=== PATIENT | female | born 1995 | race Caucasian/White ===

== ENCOUNTER 2024-01-30 10:40 | Outpatient (OUT) | payer OTHER, SELFPAY | END 2024-01-30 10:41 | disposition home or self-care (01) | LOC: PST 10:47 | PROVIDERS: PCP Family Medicine; Visit Provider Obstetrics & Gynecology | DX: Z01.818 Encounter for other preprocedural examination (principal); Z30.2 Encounter for sterilization ==

== ENCOUNTER 2024-06-19 11:10 | Outpatient (OUT) | payer BC, OTHER, SELFPAY | END 2024-06-19 11:11 | disposition home or self-care (01) | PROVIDERS: Visit Provider Obstetrics & Gynecology | DX: Z01.818 Encounter for other preprocedural examination (principal); Z30.2 Encounter for sterilization ==

== ENCOUNTER 2024-06-23 20:20 | Emergency (ER) | payer BC, OTHER, SELFPAY ==
[2024-06-23 20:26] VITALS: BP 125/79; PULSE 85; TEMP 36.8; O2SAT 99; BMI 32.3
--- OUTSIDE RECORDS SUMMARY | 2024-06-23 20:32 | XMS_ITS | CCD ---
Author Organization [facility]ini[facility] Care Team Providers Care Operations Team Leader Name Role Phone DANIELA MARIE Primary Care Physician Yahir Yu Primary Care Physician [phone] BRANDEN ORTIZ Primary Care Physician KIMO ., DR HOWE Attending Unavailabl e KARASIJodi ., DR HOWE Consulting Unavailabl e KARCARLA ., DR HOWE Admitting Unavailabl parminder MARIE, DR DAVIDSON Primary Care Unavailable Jhonatan Lockhart Attending Unavailable Jhonatan Lockhart Attending Unavailable Jhonatan Lockhart Attending Unavailable Kian Rodriguez Attending Unavailable Kian Rodriguez Attending Unavailable YARELI, BRANDEN HERBERT Admitting Unavailable SOALLYSON, BRANDEN HERBERT Referring Unavailable SOALLYSON, BRANDEN HERBERT Attending Unavailable SOALLYSON, BRANDEN HERBERT Admitting Unavailable SOVIAK, BRANDEN HERBERT Attending Unavailable SOALLYSON, BRANDEN HERBERT Attending Unavailable SOALLYSON, BRANDEN HERBERT Admitting Unavailable Jhonatan Lockhart Attending Unavailable Daniela Marie MD Primary Care Provider Keerthi Blanco MD Unavailable [phone] CARLOS BURNHAM Attending Unavailable CARLOS BURNHAM Referring Unavailable CARLOS BURNHAM Attending Unavailable BERNICE NORWOOD Attending Unavailable BERNICE NORWOOD Attending Unavailable CARLOS BURNHAM Attending Unavailable BERNICE NORWOOD Attending Unavailable CARLOS BURNHAM Attending Unavailable LAURI WARE Attending Unavailable BERNICE NORWOOD Attending Unavailable Allergies Allergy Classification Reported Allergen(s) Allergy Type Date of Onset Reaction(s) Facility (2 sources) Unable to obtain; Translations: [Unable to obtain] Drug allergy [facility] Medications Current Medications Medication Drug Class(es) Dates Sig (Normalized) Sig (Original) ciclopirox 80 mg/ml topical solution (1 source) Start: 11-12-2023 End: 12-12-2023 ciclopirox (Penlac) 8 % solution Indications: Onychomycosis of Toenails Apply topically at bedtime Applied daily to affected nails. Remove once a week with alcohol swab 10 mL 1 11/12/2023 12/12/2023 Active ammonium lactate 120 mg/ml topical lotion (1 source) Start: 11-12-2023 End: 12-12-2023 ammonium lactate (Lac-Hydrin) 12 % lotion Indications: Xerosis Cutis Apply 1 application topically if needed for dry skin Apply to feet twice daily 60 g 1 11/12/2023 12/12/2023 Active methylPREDNISolone 4 mg oral tablet (1 source) Corticosteroid Start: 10-17-2022 End: 10-23-2022 Medrol 4 mg Tab = 1 packet(s), Oral, As Directed, as directed on package labeling, X 6 day(s), # 21 tab(s), Refills(s) 0, Pharmacy: [facility]/pharmacy #[id number], 167, cm, 10/17/22 21:44:00 EST, Height/Length Dosing, 95.4, kg, 10/17/22 21:44:00 EST, Weight Dosing Start Date: 10/17/22 Stop Date: 10/23/22 Status: Ordered triamcinolone acetonide 1 mg/ml topical cream (8 sources) Corticosteroid Start: 08-19-2022 triamcinolone Top 0.1% Crm 15 gram 1 tyler, Topical, TID, 15 gram, Refill(s) 0, [facility]/pharmacy #[id number], 165, cm, 08/19/22 0:59:00 EDT, Height/Length Dosing, 98, kg, 08/19/22 0:59:00 EDT, Weight Dosing Start Date: 08/19/22 Status: Ordered Zofran ODT 4 mg Tab-Dis (9 sources) Start: 04-05-2022 take 1 tablet by mouth every eight hours as needed for nausea Zofran ODT 4 mg Tab-Dis 4 mg = 1 tab(s), Oral, q8hr, PRN Nausea/Vomiting, # 20 tab(s), Refills(s) 0, Pharmacy: [facility]/pharmacy #[id number], 170.2, cm, 04/04/22 22:40:00 EDT, Height/Length Dosing, 96, kg, 04/04/22 22:40:00 EDT, Weight Dosing Start Date: 04/05/22 Status: Ordered Problems Problem Classification Problem Date Documented Date Episodic/Chronic Allergic reactions (1 source) Urticaria; Translations: [Urticaria, unspecified] Onset: 10-17-2022 Episodic Immunizations and screening for infectious disease (1 source) Encounter for screening for human papillomavirus (HPV); Translations: [ENC SCREENING HUMAN PAPILLOMAVIRUS] Onset: 01-31-2023 Episodic Mood disorders (11 sources) Mixed bipolar affective disorder 08-03-2021 Chronic Nausea and vomiting (1 source) Nausea and vomiting; Translations: [Nausea with vomiting, unspecified] Onset: 04-05-2022 Episodic Other screening for suspected conditions (not mental disorders or infectious disease) (4 sources) Encounter for screening for malignant neoplasm of cervix; Translations: [ENC SCREENING MALIG NEOPLASM CERV] Onset: 01-26-2023 Episodic Other skin disorders (2 sources) Eruption; Translations: [Rash and other nonspecific skin eruption] Onset: 08-19-2022 Episodic Other upper respiratory infections (1 source) Acute upper respiratory infection; Translations: [Acute upper respiratory infection, unspecified] Onset: 10-06-2022 Episodic Otitis media and related conditions (1 source) Acute non-suppurative otitis media - serous; Translations: [Acute serous otitis media, left ear] Onset: 02-05-2022 Episodic Sprains and strains (1 source) Injury of muscle and tendon at ankle and foot level; Translations: [Strain of unspecified muscle and tendon at ankle and foot level, unspecified foot, initial encounter] Onset: 03-08-2022 Episodic Results Test Name Value Interpretation Reference Range Facility Coding Summary.on 02-09-2023 Coding Summary. CD:[id number] Ww+PGhlYWQ+XJ2IONTuC 65upVPotO4mP0JWYYfFT ywgQVBQTElOSyIgbmFtZ I1lgLHkRJPf IC8+UO5rENOuRccdfSCn a9I2xDC9S48ott4iRQrd yYW2XAOgYrTspbonx8xa fXo1NHelOwiwWcPw SFJblX18ZRX7yC54Mh71 mIXhrZGjr2defLz1TcHm FZXhBBG6kDlxBHsde5Ei UVTnJ34dxLCfy5Z4 IGNvbGxhcHNlOyBlbXB0 bH4rIPjwiknvo5lgnduy Fyt2dg42jPKdk7H3nIR5 B9MecaV9TRBxrCEd HxoizRORbF3wmubmq0hw vfpvDpHeIHGhGSp6GKe5 LVNzpNmiAvIhSN72MUS5 IMWesyKvL9YuFEWq hOqjTcE6k3R8Ts9MK3WW FbzaW6OBHBNNWOmzhPW+ RM12yo18T6MlTwgdVlf7 VCXpYPW9kQZ5zT0n DNTzBJamp1N6yLF3H2Kh ktSqdt0xd8ouMVCgJUya B18neVAvx1W6SOFzmKI8 UNBvaTvlNySkfW91 Oyc+KHXhzSatv8BvSzrt k4yoi6bidIv6QkkhKVGk fqEzhHoxEGN4y8PnEg9m JGPknCL1rDO8nE7r TrIbKmH0CLuqM312VgYi mJQtHkvwM98oU5GceHS+ JXZtOqn8ZLXaqIhhCX0g R5PxLPHtkcmojNTt cSagQJ5qGFWuwisoYMCa uG2wYBVnG6v7DfDdAqG1 ZKbgG0AsUBWnpwdmOo13 dQ0tUuKyOcO9WHnn P1BznvP9MQBmxTHmVUtl QMK0K68ja8M9AOTlYKIp MNP5oEM4rN7mxInhvgpo bGVmdDsgdmVydGlj HBfkKVbkZ600ALAxhGqe PkNvZGluZyBEYXRlOiAg MDQvMjYvMjAyMzwvdGQ+ QIKlRVS8uXqpLBBt aRWgPNkjOi4zkSyzhPli HA8wCWGfsybgHPEjtX7y WNYlgEOrdZbzHC6mVLWz eibgs642ClIiZSZ7 AWTtiDIsH3UsfT4pObAu GYQuUYRpJ5BmrSIuYIir D190XYsyOaY2RCJogpMr X9SaOANmdBziTrR6 u5Z4Hz2Mj3QfvavlT2Mz wIThOfPrJdzjUGg6E6Xh PjwvdHI+WQ71CCWqCS09 JDv1IXP4dTnrTLrw PTZqC3LqbE9rWyVrABQc ZGRkOyc+PHRhYmxlIHdp ZHRoPScxMDAlJyBzdHls LH5kSl9oFGHoVHOd zGujeHYsMaHos8mgWAYz VGenGV6sqLsnH5BqlZE6 PJEow8m6Un43G20zY4Rv dXA+CKJofXF2yQT0 xK3tLdQhDsU0HEexZ380 GoFlfUNeMvuuv8unk0xv gXn6DbB7BPIuohCvvTis KDN6m9GuWu21R76o IHdpZHRoPSIxNSUiIHZh zBvzgf0lmV7yDg8+PGNv oBD8dJF6xQ8aXfXcAfP3 DMtbU287ApIrbBKz Enche2cyq7kmeAi3OyId VBLhyfGywIlsQXR2o4Nz Ij48Y5FsuAvwq5AlXke3 oz11uVVwr3L6iVA1 B8StCPSurhpqwYSzyOlc CX8uHBWwcqxxBELrxD1i FMFfB9e1AvTvAfQ4OIty U6UnusA1VPGdsUBp YYTqnKZMbL7ldzxgb8sp emznZwBvXCIePPu6TNu9 JMFgqDikMtRgXSY7YuC3 FRA7nYRmfU5ixKup phhsnJ2xYdh+GSZ7uNJu wPZHVV2zDhhkjVJ+PHRk QWM4hZrpATglYLGheL5b WNPvJ4v3HgGhYoM1 ZAbzF8RzluA8JWWtfXBh TEChbLKTdL9zsabao1nr bqkhJxLgJGWzDRq3GDk7 LWFsaWduOiBsZWZ0 YpF2ONE2rSMkwH8rtUwg ipnsyA5rEds+QmlydGgg EEH9WGc9O4KmCqo8UEBx tQocCF0zmIGeLGaw Vb0umLoedMruQT2uDKZp wcmaq230YiVyq4tvFIDt jBCyQXtnTYI2M68zi2X2 ZHJaEWQdKZJ4jVQ7 dT9skGrecvnvkQLmiJyl grGvnXubCKwaDWvoZ993 DMBevEorRrWaYUq5Q1Ko Elz5ECBdiJnbBC3c jCUnJXzfLc6trTmobFeu RO6aLYVviqfct997HnEh d3zzNSWioLYcEDqiZFV2 U98nn8Z0AIXkCSTh QUN3gKF9sM3swJisphoo bGVmdDsgdmVydGljYWwt NCwcY692FXFjiDlaRiAx jMe4S2IhOft4ASJl oIqwEX4riXAyLIhlRc5w vHtlxPkzDA1vQSBiixos q715DyIwl3jyUGXkiTYh OXeoGXJ3P36kb2C4 ZYGlMYPsMPW0dZW3jR7n bGlnbjogbGVmdDsgdmVy qIvjAXbdTBcoF050DGSs cDsnPlBhdGllbnQg GRtjNCb4H6TvWldpcOF+ NL65ENDeNQ11dYTkmPIr b4kdiIu0ZoRqEOFgAMI8 lVgpDXqcr1AnBLZm P36qaRNkw9D4OKFvaEit aZKmNuVliOA4kY3oANtn yfkrh0edcgoxRxlcm4rr lp08fV48R69kCLhh ZHRoPSIzMCUiIHZhbGln on5apN0bYn3+PGNvbCB3 pYK5uD6sEYXkGbP2XAej Z425JjNymUMzMhdv x4cns9kplXj6HcG1WJXv quSkmPegDOQ8p6JiYz44 F34hTKheFXTlVEWpYQYu GTMqeWejzu7auE8e Ii8+CIAdiWR3qUO3vY3r RxHaGfR7JBfeU011EqSd gKBcEbjaX22wH7ByaPA+ EKHfBlr1NFKyfPdp WZ1qyNVmDHqpEx3sAJM3 GhMyHyCiVJnsS5JzLBAz hxytypxyqTU5GULqSDAq hX86En8kzNrtKIYa qSEIuJ6jxntwg4mbbsup HeRyUJFnDMp4RIc0POUb hRzvVvWyEYK0IfE1RRD8 mOPneE8pyCjavkon yO1iG1ZeQABfpajzKy76 xY4iLtSiLtI7IAhlGmx+ K0WFVjYOZARCFDDTJ9TN LKk1Z7HpIgg9IAOr uOliWC9fcDBoKIrxOk1y xTrunDtuBA0uFANwzuwo ONFhnY3gLAGqlVWvqQzp GW6fHSXpvmvow747 HuGmMFY7ATNtvWNgQ5Fy uI8oUnCmBZJoCTAfM6Zi iFBrXSmoY997CPtaNtI5 WREedbOxP0BfPKOh fVnfHjP3z4Q6He3gQH2s GG4yJYv6NL19TS21yUKk v4T3uMM1W8PmLAHhuojv drvjyBB0JLHoPFFs qW70oIVdCSatCs1io8D0 z937SPLtTOMpwT10Cv5g bFwkITHwzILJtI8wvxim p6hqjrsaFvXpAVAh ISl0OVf2MGDaqDumCwNl XIK6CaD2RBD8vFStmR2e gMxsqytsgW1bNad+Mjcg EBDcfqF3Q3OdRnk6 QZGjuRmgCZ7uxZWfRQru Ik0cqAuuqNbrOU9lAHRu qowsTLWbeF1nDXApfFLk lGopSK4jNSFeukev c935OjJwTCK5RRXcoBFs Y9MvoJ9qSuCrJCNnXCOu M1ClxRToYOinW543KXto YvP1EEUpmiGjY5Ef RTOknFeeQaN5c0I7Dc2Q UH0fbKT3D1TsDxx2IOGi nFoxEA7jrQIkDYolGr9c eFekqBrtOF2sJIHh jjsgNLKiwG6pSJPlrKCh gBdgBD8yAGJioqrwo475 WcXaKAC3JKOvzJXiH8Dx aZ8gWoGkRRCkGRUo Q3OayTDvOAbsG496WZhr HoF3IVGvuaVjT5KkOTRk gZtcWuD9p6Z3Yc7QKVRt OAXndRReJrZ1D5Ij PjwvdHI+LM70EYCsOU91 pUDplNUdy4bwqKy6VfYm AHNqIRM5lNwvKSwch4Pc TAUwZ97xpQDqo9V1 IGNvbGxhcHNlOyBlbXB0 kX3aBHkyjikfo6ovewbs Jtojc5nepl32vN39R13w IHdpZHRoPSIzMCUi JJZfzDdxxm2lcQ2hFs0+ GTMrbOU4dMI4uJ0pTfXi AxI9QErbQ568WlTatBUe Fljnl4tse9xkeIg4 IjIwJSIgdmFsaWduPSJ0 d9HkJs40J26xFJanPLKt AAYiVJQeCVBbeLxqzv0n pF6bTy6+QX5wc1xm yf29sZ07zJK+PHRkIHN0 eOceAIvcQOQejH6aQGql GmX4MAAvKhFcxK15eVYd OKxfKz5jkGrprUiw LL5aAFBevgkdl157LcGf e0wvTUZkcLFdXRboIJW7 N25fy1O7ZCPfOSSzVWN6 oUV7eN6nxRnxwaor bGVmdDsgdmVydGljYWwt NEytP899HHOmrEuhOfCn bUZqS6rcntGWUR8jFhsd dGQ+TEMmEDD5pGcf BLljSDXzyR3uJEZkL7m1 OtMcZdX3WLriN2CsenT2 CTLooTFoHMAciDGIxV4s dgmoa7anibyiFfVe WLKvTQj4GYw7EMIgfFft PoHxYWI7VkW0IRK5dPWf tX3ayFgcsuzbuM3uMnv+ RklOOjwvdGQ+PHRk NAR8tPxkUSsaZGCmuG5x QDBeA8q1UbMhLwH8DCqn T5CpasP7HFTczQCaXKTf oCSGeH6pphqdr6wc fzbtZlFiCDEgBJf3IIb3 KNUelVoeHuBxIUJ6NdJ1 TNP9pYSksC3drAkjgmda uR1nUff+TVJOOjwv dGQ+CQPqVAP1bPvjLNty DXAdaT6mWBCzM3k2HmQi GaI2JKlyQ7YepkR5YTEc dCCwLGTazJMLcT7o sbkup4mpuxiuToDdMLWx UAu7DIp5ECPymDnfEtIz LPG8XiL5EJG1oLYgrT0y mYkigiwvhO6nWwe+ GGT6CRO7YV59NL75E5Yn PjwvdGFibGU+PHRhYmxl IHdpZHRoPScxMDAlJyBz dJndST2lId5kCDXp LWNvbGxh (more content not included)... [facility] Auto Diffon 02-04-2023 Basophils/100 WBC (Bld) 0.3 % Normal 0.0-2.0 [facility] Comment on above: Order Comment: Order Added by Discern Expert. Performed By: #### 2 [id number], 5170210, 4187011, 3002358, [id number] #### [facility] [address] [place] [address] Basophils/Leukocytes Auto (Bld) [Pure # fraction] 0.0 E9/L Normal 0.0-0.2 [facility] Comment on above: Order Comment: Order Added by Discern Expert. Performed By: #### 2 951527, 2823616, 6474474, 5937075, [id number] #### [facility] [address] [place] [address] 25215 Eosinophils/100 WBC (Bld) 1.9 % Normal 0.0-8.0 [facility] Comment on above: Order Comment: Order Added by Discern Expert. Performed By: #### 2 921813, 3467267, 9936334, 0287613, [id number] #### [facility] [address] [place] [address] 97533 Eosinophils/Leukocyte s Auto (Bld) [Pure # fraction] 0.1 E9/L Normal 0.0-0.5 [facility] Comment on above: Order Comment: Order Added by Discern Expert. Performed By: #### 2 961421, 8820730, 4888987, 7656978, [id number] #### [facility] [address] [place] [address] 88468 Lymphocytes/100 WBC (Bld) 41.1 % Normal 14.0-50.0 [facility] Comment on above: Order Comment: Order Added by Discern Expert. Performed By: #### 2 917058, 2808661, 5404192, 8134223, [id number] #### [facility] [address] [place] [address] 73761 Lymphocytes/Leukocyte s Auto (Bld) [Pure # fraction] 2.7 E9/L Normal 1.0-4.0 [facility] Comment on above: Order Comment: Order Added by Discern Expert. Performed By: #### 2 199769, 7626097, 1549724, 6274207, [id number] #### [facility] [address] [place] [address] Monocytes/100 WBC (Bld) 5.9 % Normal 4.0-14.0 [facility] Comment on above: Order Comment: Order Added by Discern Expert. Performed By: #### 2 679666, 4355742, 3134790, 9466140, 96258585 #### [facility] [address] [place] [address] Monocytes/Leukocytes Auto (Bld) [Pure # fraction] 0.4 E9/L Normal 0.2-1.0 [facility] Comment on above: Order Comment: Order Added by Eleazar Expert. Performed By: #### 2 194408, 6172313, 3525441, 5622409, [id number] #### [facility] [address] [place] [address]1409 Neutrophils/100 WBC (Bld) 50.8 % Normal 36.0-75.0 [facility] Comment on above: Order Comment: Order Added by Eleazar Expert. Performed By: #### 2 497604, 4439410, 6470406, 8772585, [id number] #### [facility] [address] [place] [address] 72864 Neutrophils/Leukocyte s Auto (Bld) [Pure # fraction] 3.4 E9/L Normal 2.0-7.5 [facility] Comment on above: Order Comment: Order Added by Discern Expert. Performed By: #### 2 644649, 8968052, 6449335, 6112417, [id number] #### [facility] [address] [place] [address] 40152 CBC w/ Auto Diffon 3 Erythrocyte distribution width (RBC) [Ratio] 12.8 % Normal 10.9-14.2 [facility] Comment on above: Performed By: #### 2 092594, 2740454, 0846423, 8951176, [id number] #### [facility] [address] [place] [address] Hematocrit (Bld) [Volume fraction] 42.4 % Normal 34.0-46.0 [facility] Comment on above: Performed By: #### 2 912402, 6967137, 2900921, 9676271, 65144050 #### [facility] [address] [place] [address] Hemoglobin (Bld) [Mass/Vol] 14.1 g/dL Normal 12.0-16.0 [facility] Comment on above: Performed By: #### 2 893332, 6117652, 2926077, 6837523, 81276450 #### [facility] [address] [place] [address]24 MCH (RBC) [Entitic mass] 29.2 pg Normal 27.0-34.0 [facility] Comment on above: Performed By: #### 2 522087, 4712845, 7218582, 1249343, 58250112 #### [facility] [address] [place] [address] 25949 MCHC (RBC) [Mass/Vol] 33.2 g/dL Normal 31.4-36.0 [facility] Comment on above: Performed By: #### 2 833228, 0902761, 5559756, 9483163, [id number] #### [facility] [address] [place] [address] MCV (RBC) [Entitic vol] 87.9 fL Normal 80.0-100.0 [facility] Comment on above: Performed By: #### 2 746457, 7214270, 9782475, 5968919, 71595175 #### [facility] [address] [place] [address] Platelet mean volume (Bld) [Entitic vol] 8.6 fL Normal 6.4-10.8 [facility] Comment on above: Performed By: #### 2 525037, 5297373, 0562693, 9466067, 55259741 #### [facility] [address] [place] [address] Platelets (Bld) [#/Vol] 217.0 E9/L Normal 150.0-500.0 [facility] Comment on above: Performed By: #### 2 048777, 2108834, 4389098, 3997302, 67044419 #### [facility] [address] [place] [address] RBC (Bld) [#/Vol] 4.8 E12/L Normal 4.3-5.9 [facility] Comment on above: Performed By: #### 2 038552, 2519107, 6624391, 2326004, 69672744 #### [facility] [address] [place] [address] WBC corrected for nucl RBC Auto (Bld) [#/Vol] 6.6 E9/L Normal 4.0-11.0 [facility] Comment on above: Performed By: #### 2 651081, 7619835, 8223220, 6379822, 46330520 #### [facility] [address] [place] [address] CHEMISTRYOrdered By: SYSTEM SYSTEM on 02-04-2023 Albumin [Mass/Vol] 4.1 g/dL Normal 3.3 - 5.0 gm/dL [facility] Albumin/Globulin [Mass ratio] 1.7 {ratio} Normal 1.1 - 2.2 [facility] ALP [Catalytic activity/Vol] 52 [iU]/d Normal 21 - 98 Int._Unit/L [facility] ALT No additional P-5'-P [Catalytic activity/Vol] 26 [iU]/d Normal 6 - 46 Int._Unit/L [facility] Anion gap [Moles/Vol] 12 mmol/L Normal 6 - 16 mEq/L [facility] AST [Catalytic activity/Vol] 22 [iU]/d Normal 5 - 43 Int._Unit/L [facility] Bilirubin [Mass/Vol] 0.8 mg/dL Normal 0.0 - 1 .1 mg/dL [facility] Calcium [Mass/Vol] 8.5 mg/dL Low 8.9 - 11. 1 mg/dL [facility] Chloride [Moles/Vol] 106 mmol/L Normal 101 - 1 11 mmol/L [facility] Cholesterol [Mass/Vol] 180 mg/dL Normal 120 - 200 mg/dL [facility] Cholesterol in HDL [Mass/Vol] 40 mg/dL Invalid Interpretation Code [facility] Cholesterol in LDL [Mass/Vol] 121 mg/dL Normal <=129mg/dL [facility] Cholesterol in VLDL [Mass/Vol] 19 mg/dL Normal 7 - 40 mg/dL [facility] CO2 [Moles/Vol] 24 mmol/L Normal 21 - 31 mmol/L [facility] Creatinine [Mass/Vol] 0.5 mg/dL Normal 0.5 - 1.3 mg/dL [facility] GFR/1.73 sq M.predicted among blacks MDRD (S/P/Bld) [Vol rate/Area] mL/min/1.73 m2 Normal >=59mL/min/1. 73 m2 [facility] S GFR/1.73 sq M.predicted among non-blacks MDRD (S/P/Bld) [Vol rate/Area] mL/min/1.73 m2 Normal >=59mL/min/1. 73 m2 [facility] Globulin (S) [Mass/Vol] 2.4 g/dL Normal 1.4 - 4.0 gm/dL [facility] Glucose [Mass/Vol] 90 mg/dL Normal 55 - 199 mg/dL [facility] Potassium [Moles/Vol] 3.9 mmol/L Normal 3.5 - 5.3 mmol/L [facility] Protein [Mass/Vol] 6.5 g/dL Normal 6.0 - 7.8 gm/dL [facility] Sodium [Moles/Vol] 138 mmol/L Normal 135 - 145 mmol/L [facility] Triglyceride [Mass/Vol] 95 mg/dL Normal <=149mg/dL [facility] Urea nitrogen [Mass/Vol] 15 mg/dL Normal 5 - 21 mg/dL [facility] Urea nitrogen/Creatinine [Mass ratio] 30 mg/mg High [facility] CMPon 02-04-2023 Albumin [Mass/Vol] 4.1 g/dL Normal 3.3-5.0 [facility] Comment on above: Performed By: #### 2 263449, 8510775, 1250820, 7927244, 06796623 ####[facility] [address] [place] [address] Albumin/Globulin (S) [Mass conc ratio] 1.7 Normal 1.1-2.2 [facility] Comment on above: Performed By: #### 2 312890, 2975785, 5089106, 5177357, 43197792 ####[facility] [address] [place] [address] ALP [Catalytic activity/Vol] 52 Int._Unit/L Normal 21-98 [facility] Comment on above: Performed By: #### 2 093052, 2803355, 4480862, 3310131, 15113617 ####[facility] [address] [place] [address] ALT No additional P-5'-P [Catalytic activity/Vol] 26 Int._Unit/L Normal 6-46 [facility] Comment on above: Performed By: #### 2 861699, 1262579, 3771024, 3653199, 17831363 ####[facility] [address] [place] [address] Anion gap [Moles/Vol] 12 mmol/L Normal 6-16 [facility] Comment on above: Performed By: #### 2 827266, 6398255, 3742109, 4576301, 34121075 ####[facility] [address] [place] [address] AST [Catalytic activity/Vol] 22 Int._Unit/L Normal 5-43 [facility] Comment on above: Performed By: #### 2 678739, 0304641, 1087675, 9749869, 73345860 ####[facility] [address] [place] [address] Bilirubin [Mass/Vol] 0.8 mg/dL Normal 0.0-1.1 [facility] Comment on above: Performed By: #### 2 370209, 4103223, 5614969, 0993802, 48241471 ####[facility] [address] [place] [address] Calcium [Mass/Vol] 8.5 mg/dL Low 8.9-11.1 [facility] Comment on above: Performed By: #### 2 832242, 7623223, 0122705, 1384741, [id number] ####[facility] [address] [place] [address] Chloride [Moles/Vol] 106 mmol/L Normal 101-111 [facility] Comment on above: Performed By: #### 2 688447, 4292269, 8701234, 6066464, [id number] ####[facility] [address] [place] [address] CO2 [Moles/Vol] 24 mmol/L Normal 21-31 [facility] Comment on above: Performed By: #### 2 935768, 2678042, 9238733, 2861399, [id number] ####[facility] [address] [place] [address] Creatinine [Mass/Vol] 0.5 mg/dL Normal 0.5-1.3 [facility] Comment on above: Performed By: #### 2 053201, 1398338, 5528362, 3100195, [id number] ####[facility] [address] [place] [address] Globulin (S) [Mass/Vol] 2.4 g/dL Normal 1.4-4.0 [facility] Comment on above: Performed By: #### 2 947041, 7953949, 8191999, 0468207, [id number] ####[facility] [address] [place] [address] Glucose [Mass/Vol] 90 mg/dL Normal 55-199 [facility] Comment on above: Result Comment: If t his glucose result represents a fasting glucose, interpretation should refer to the following reference range: 55-99 mg/dL Performed By: #### 2 542190, 9242939, 2364162, 3518597, [id number] ####[facility] [address] [place] [address] Potassium [Moles/Vol] 3.9 mmol/L Normal 3.5-5.3 [facility] Comment on above: Performed By: #### 2 505467, 3860626, 9007780, 6908533, 65581716 ####[facility] [address] [place] [address] Protein [Mass/Vol] 6.5 g/dL Normal 6.0-7.8 [facility] Comment on above: Performed By: #### 2 772222, 4097222, 6573838, 0730307, [id number] ####[facility] [address] [place] [address] Sodium [Moles/Vol] 138 mmol/L Normal 135-145 [facility] Comment on above: Performed By: #### 2 922359, 2032304, 8377357, 6674102, 34468958 ####[facility] [address] [place] [address] Urea nitrogen [Mass/Vol] 15 mg/dL Normal 5-21 [facility] Comment on above: Performed By: #### 2 596401, 6087782, 8259314, 5533119, 51896505 ####[facility] [address] [place] [address] Urea nitrogen/Creatinine [Mass ratio] 30 No Units High 10-20 [facility] Comment on above: Performed By: #### 2 630569, 6183691, 2522432, 9487905, 27553322 ####[facility] [address] [place] [address] HEMATOLOGYOrdered By: SYSTEM SYSTEM on 02-04-2023 Basophils/100 WBC (Bld) 0.3 % Normal 0.0 - 2.0 % [facility] Basophils/Leukocytes Auto (Bld) [Pure # fraction] 0.0 E9/L Normal 0.0 - 0.2 E9/L [facility] Eosinophils/100 WBC (Bld) 1.9 % Normal 0.0 - 8.0 % [facility] Eosinophils/Leukocyte s Auto (Bld) [Pure # fraction] 0.1 E9/L Normal 0.0 - 0.5 E9/L [facility] Lymphocytes/100 WBC (Bld) 41.1 % Normal 14.0 - 50.0 % [facility] Lymphocytes/Leukocyte s Auto (Bld) [Pure # fraction] 2.7 E9/L Normal 1.0 - 4.0 E9/L [facility] Monocytes/100 WBC (Bld) 5.9 % Normal 4.0 - 14.0 % [facility] Monocytes/Leukocytes Auto (Bld) [Pure # fraction] 0.4 E9/L Normal 0.2 - 1.0 E9/L [facility] Neutrophils/100 WBC (Bld) 50.8 % Normal 36.0 - 75.0 % [facility] Neutrophils/Leukocyte s Auto (Bld) [Pure # fraction] 3.4 E9/L Normal 2.0 - 7.5 E9/L [facility] HEMATOLOGYOrdered By: Mart Alexandra on 02-04-2023 Erythrocyte distribution width (RBC) [Ratio] 12.8 % Normal 10.9 - 14.2 % [facility] Hematocrit (Bld) [Volume fraction] 42.4 % Normal 34.0 - 46.0 % [facility] Hemoglobin (Bld) [Mass/Vol] 14.1 g/dL Normal 12.0 - 16.0 gm/dL [facility] MCH (RBC) [Entitic mass] 29.2 pg Normal 27.0 - 34.0 pg [facility] MCHC (RBC) [Mass/Vol] 33.2 g/dL Normal 31.4 - 36.0 gm/dL [facility] MCV (RBC) [Entitic vol] 87.9 fL Normal 80.0 - 100.0 fL [facility] Platelet mean volume (Bld) [Entitic vol] 8.6 fL Normal 6.4 - 10.8 fL [facility] Platelets (Bld) [#/Vol] 217.0 E9/L Normal 150.0 - 500.0 E9/L [facility] RBC (Bld) [#/Vol] 4.8 E12/L Normal 4.3 - 5.9 E12/L [facility] WBC corrected for nucl RBC Auto (Bld) [#/Vol] 6.6 E9/L Normal 4.0 - 11.0 E9/L [facility] Lipid Panelon 02-04-2023 Cholesterol [Mass/Vol] 180 mg/dL Normal 120-200 [facility] Comment on above: Performed By: #### 2 708661, 4062510, 7108640, 4562821, [id number] ####[facility] [address] [place] [address] Cholesterol in HDL [Mass/Vol] 40 mg/dL Invalid Interpretation Code [facility] Comment on above: Result Comment: HDL > or equal to 60 mg/dL: Low cardiovascular risk HDL < 40 mg/dL : High cardiovascular risk Performed By: #### 2 [id number], [id number], [id number], [id number], [id number] ####[facility] [address] [place] [address] Cholesterol in LDL [Mass/Vol] 121 mg/dL Normal <=129 [facility] Comment on above: Performed By: #### 2 [id number], [id number], [id number], [id number], [id number] ####[facility] [address] [place] [address] Cholesterol in VLDL [Mass/Vol] 19 mg/dL Normal 7-40 [facility] Comment on above: Performed By: #### 2 [id number], [id number], 7743732, [id number], [id number] ####[facility] [address] [facility] [place] [address] Triglyceride [Mass/Vol] 95 mg/dL Normal <=149 [facility] Comment on above: Performed By: #### 2 [id number], 0654900, 5052132, [id number], [id number] ####[facility] [address] [place] [address] Physician Orderon 02-04-2023 Physician Order [id number] 3#1.00CD:127 Normal [facility] eGFRon 02-04-2023 GFR/1.73 sq M.predicted among blacks MDRD (S/P/Bld) [Vol rate/Area] mL/min/{1.73_m2} Normal >=59 [facility] Comment on above: Order Comment: Order added by Discern Expert. Result Comment: eGFR is race adjusted. AA=. Performed By: #### 2 130625, 2874324, 5957883, 0558711, [id number] ####[facility] [address] [place] [address] GFR/1.73 sq M.predicted among non-blacks MDRD (S/P/Bld) [Vol rate/Area] mL/min/{1.73_m2} Normal >=59 [facility] Comment on above: Order Comment: Order added by Discern Expert. Result Comment: Cash Clerk cristhian kidney disease could be indicated at eGFR's of less than 60 mL/min/1.73m2. Kidney failure is indicated at less than 15 mL/min/1.73m2. Performed By: #### 2 186621, 7973868, 9953936, [id number], [id number] ####[facility] [address] [place] [address] PAP ACOG PANEL 2: 21 to 29on 02-03-2023 . . Normal [facility] Comment on above: Performed By: #### 4 [id number] #### [facility] [address] [place] [address] Dr. Miguel Angel Bassett Age Gdln ACOG Testing - Normal [facility] Comment on above: Performed By: #### 4 [id number] #### [facility] [id number] Miguel Angel Bassett DIAGNOSIS: Comment [facility] Comment on above: Result Comment: NEGA TIVE FOR INTRAEPITHELIAL LESION OR MALIGNANCY. FUNGAL ORGANISMS MORPHOLOGICALLY CONSISTENT WITH DARLINE SPECIES ARE PRESENT. Performed By: #### 4 [id number] #### [facility] [address] [place] [address] Dr. Miguel Angel Bassett Methodology: Comment Normal [facility] Comment on above: Result Comment: This liquid based ThinPrep(R) pap test was screened with the use of an image guided system. Performed By: #### 4 [id number] #### [facility] [address] [place] [address] Dr. Miguel Angel Bassett Note: Comment Normal [facility] Comment on above: Result Comment: The Pap smear is a screening test designed to aid in the detection of premalignant and malignant conditions of the uterine cervix. It is not a diagnostic procedure and should not be used as the sole means of detecting cervical cancer. Both false-positive and false-negative reports do occur. . Performed By: #### 4 [id number] #### [facility] [address] [place] [address] Dr. Miguel Angel Bassett Performed by: Comment Normal [facility] Comment on above: Result Comment: Lesli Sterling Senior Science Consultant (ASCP) Performed By: #### 4 [id number] #### [facility] [address] [place] [address] Dr. Miguel Angel Bassett Reflex Criteria: Comment Normal [facility] Comment on above: Result Comment: The HPV DNA reflex criteria were not met with this specimen result therefore, no HPV testing was performed. . Performed By: #### 4 [id number] #### [facility] [address] [place] [address] Dr. Miguel Angel Bassett Specimen adequacy: Comment Normal [facility] Comment on above: Result Comment: Sati sfactory for evaluation. Endocervical and/or squamous metaplastic cells (endocervical component) are present. Performed By: #### 4 [id number] #### [facility] [address] [place] [address] Dr. Miguel Angel Bassett Pulmonary Function Studieson 01-15-2023 Pulmonary Function Studies PULMONARY FUNCTION TEST: 01/04/2023 REQUESTING PROVIDER: Branden Ortiz CNP REASON FOR TESTING: Unspecified asthma. Spirometry results are somewhat acceptable and reproducible but are of suboptimal quality. The FEV1 was 3.74 liters or 89% of predicted. FEV1 was 2 liters of 56% of predicted with a ratio of 53%. There was significant improvement in the FEV1 of 19% with the administration of bronchodilators. Lung volumes showed a total lung capacity of 72% of predicted, residual volume of 64% of predicted with a ratio of 24%. Diffusion capacity of carbon monoxide was 93% of predicted and when adjusted to alveolar volume at 106% of predicted. IMPRESSION: Pulmonary function test results are of suboptimal quality. 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 There was a good response in the FEV1 to bronchodilators. READ BY: Israel Romero Dictated: 01/09/2023 [id number] Transcribed: 01/10/2023 cc:Percy Ortiz, [facility] Comment on above: Result Comment: Elec tronically Signed By: Piyush PEDRO, Cedric Winslow\.br\Date and Time Signed: 01/15/23 12:34 EDT Coding Summary.on 01-12-2023 Coding Summary. CD:[id number] Ww+PGhlYWQ+CS4QBAPeK 44iwFXjuP1iD0LPRZnPM ywgQVBQTElOSyIgbmFtZ J1cgEOqUZUo IC8+QV4nSPFyLvhqrNYy r7J0iNN0Y25zbs3wBBpo cZQ1RCRaYxPosffnn2op xMz5ERqlMklaCtIe RLWyjT77NMU0bZ79Df63 yQIprODbl9axmZx1IiQp FOFqCPT6mMrrHNciz0Nd YQWgE89llHRtg7I2 IGNvbGxhcHNlOyBlbXB0 rA3jDSbamdkwh8swsgau Jva7av46mWMzm3W1hMZ2 P0EjblZ4IYJuzUUs VqmmqRBDhS9iwulhy4ol xosoSoGmTBIdCRc8KXd7 ZZYblPusYaIaLY59PTI4 YJOfmzTfJ9GlOJUw eEsmIwF5b2E0Dz3WA5UH VzytY7KNXIOUHIfinKM+ NU10wq63G6KuFqlbUdq2 ARKbQHM1kFP6fO9h JMLjQHvph8G3nSX7X6In ilFcet9en0yzHUYhYPcg U67enGZpp7W3LXKmzZI2 VRPzoClaXxNlwD74 Oyc+SHIhpJglh5LuPwbu z5kzb2uduCq5YircGEMg juIpxOdlZZQ3g5ArZh8z DJZppLZ9nET8vR1u KdNtYmW0WVydL069AwXg iVRdKlujM20dU1NpmRW+ QXJnAkt0WINjfUmaGM2o A4OwRAXzamtisAXd pTvuVA0fTBNmgcllOKAm pV9kOVDvG5e2UuLlRkM8 CBvnC0SsUQHnuqjuNy54 vL9vDtXdAiS9GSid J9DalrU7UBBvuRBpEUek GBO1G00cp0V3TFTpUTTh RWX1nZP4dY8yjUbpeuer bGVmdDsgdmVydGlj MYvqSLvoF710PYTzjCtw PkNvZGluZyBEYXRlOiAg MDMvMjkvMjAyMzwvdGQ+ GQKqZRW8eIjlZTMw gNIhFHfcLt5ztXowpJoy EL8vZDKhlrocUREecC8w HOBaxDYdqKtbWU4aJEVm fiyqi575NxRuAKQ7 MSAghELiE3StaC7jKyUt OHMdOQYkN9YilHJiBHdc L270BVpbWrM2AJWmtpGo V5RjOZWruQntGmY6 l5M4Hi9Le6GrzqqsA9Os iPVlSyLwEmytVWc4F2Jn PjwvdHI+BJ71BNNgKH69 HVv3OOH3zMuhLZdg LUVdK7QmyM5tAcXySQSg ZGRkOyc+PHRhYmxlIHdp ZHRoPScxMDAlJyBzdHls VH5uNt9jCPPsUPLr dYcsgFTyZxGld5smIFYz VYeaQK0wgDybN0RwmPG4 UULlv8y1Rk36H48yA5Xt dXA+FUXurEG7aHO1 tA0tUdNbYiD2JCjlY174 RfHrjDFbBfvhq3muv7qo wLc1DnJ1HMRjesVinFfy DIL4i4IcHq81P37b IHdpZHRoPSIxNSUiIHZh bLooib1qvA8bXe3+PGNv dJX3vFC2jW7gFzTeAkM9 KOnbX631DaXkeLWz Pkies8snr9rgkXf6EoMa PNMaiwEujPsoWOS8j1Yx Jl23N6SrdYpqd8GgMld3 zf07bOIkl7I4vIL3 C4AjCHDconpvrBBizJac QU0oVRPkhkhnPKGlsQ4f UYFdR2v2ByCmLuV2QKvt W9QflnN5DCLlqOBn RTOjrBPExB7mzgveq0es sdipPxIsWYGlDYa8EBu8 DYOffYywTkKxLHH7BiO8 XQD3gMAxfM7jbXwz pguibI8uObl+TNR6wXOa eFFJVA1xShhyaJE+PHRk NXP8gGfwDWlrLXHmpL8p YHKbU5z7UtJgEuP9 TDrpH0KovqJ1DXTyvSGu ELWdoLFTuK7oluihl5sx kzpxFtKoXWFkJNq2NZd9 LWFsaWduOiBsZWZ0 ZgC8QZY3rFIiyG4frXmc liqodI4zKhj+QmlydGgg WEE8EVc3H3TdCaq3DQYu dAcsMA1qaSIlVTgc Ke6qcZadgTpwBJ4lFFHx hkomd147EyUax6yjNZVy zWYlZDgbWBN6S96qe9K7 NWTgGEHnABR3bHV1 mR9zjQjaapbhyMVdrIxy vhCouIzhDQrtHIhrA397 TZAjeZmbRwOiYIi7T7Fz Qtk9RYFjfHjlCD6v dCRqPDnlDz1mgXctwGrt QO6hJFJvezgva357IsKs x4bfFSRdwINtYCcySXV8 G02ka3U0FESvUYDs CTV6aMV5vK1hzIrakcds bGVmdDsgdmVydGljYWwt NTnwH670NSBeeOfiJnCo jOe2C4ZwNec9WHTk qGioUG9vqODrRPmgKf9y sGdsxOoyOF8lCUGuxsrs o092OzBey8gfOOJunEIz NDtuIJQ5D50go1O1 NGLqVHWkKOQ4mTS5zQ5i bGlnbjogbGVmdDsgdmVy iPlqXVzsDXdmO696IYZf cDsnPlBhdGllbnQg QVhcUHp8M1EuBlqvbTO+ XZ91EKQfUJ17iJHgjWOn s6casCe5NmJtMFGzVAX0 sPudRKbio7ZaFCSb N15mkFHej3Y8BCTilVsi uACgLyWurNV3vZ5dGTwd gwmrs0jwtetjZarge3bc qy68mF06I91pGIxp ZHRoPSIzMCUiIHZhbGln js4vdR3iPy5+PGNvbCB3 xBN7dA2sFCXcDdJ0EPnj Y457CqLqwPIiVdoj w8kpy7lptHw2DyE1UPPa aoDtnXwpRIV9m9HfAg72 C39gSKxyEGCtPDNyXNLa GFDroVmyjo1lfK4u Ii8+DGMroNN6tQN1fX0k GxKrUhV4IKnvI961LgCx oOWkZpygP62eJ5DddLE+ WVOtBvx5FMHtbPvn NC8vdRAzNIyxYd3tFNQ1 FhFhQnJgSPdlJ0TbRXQg sairsiaqwST7SXBkTDJg vK82Kp7mfVjfIGNr bQOYcZ3qylyet7ovwafe WsPnFREkBRx0ECk2VKYw mWlyZeJfXJE4FmN4PNF2 nDOjyZ4yiXqrxvnr yN4bF4IeYUKgdyeuDt63 iP5bQdAeCgB5NNpdEkx+ D8MXApRLWWBCDXHQE6TP JUr6I6TwHya5TUKl oOtvVG0ayUUjDRpzZm2f qIaflDewJO5pHUGwsaon NEZegQ8sBVKmnZCwlGhc TH3hPOBlnuncq131 XeBkLKC2HOHbvHDeX8Bn wP5oCmCvWKNeKJJqE6He tUEbTPubY777REjaRsD9 GLDzdsKkS8MqTXDy tQaiDjP1c9K4Vg3jMG4k LX3iODd9XP19GU69cXOv g0S7vDD6R6ZqKMUjtmka hubgfOG9SKJqCLZw tM13eDDlGOknHt4lx3D0 e083MQHwZWLtxG93Fc2y yEbeQFQrzSDRlP8jyaas c5bnkllqFrFpWDPv KNe8NDa8PDUpvRmtGaUn GXJ0ZnY2YYI7uPYruE4i hQdexghlrB4fTsg+Mjcg NGUavsP1G6RlKni8 IWJjqOhyWL3ttJCaADir Ia5gnHabwYojQB1uVBUp tnfiTXYhyS2hPSEzzTKk zKsdZP0vSJUezgdj n650YkYgYWC6CHKplVUn E1GdlN7tRkWsJJDlTVJc I2MnrVFoKXsxV895FSly BfY0BHKldcIrX3Ah SKUzrJjhFgL5i6Y0Zi8Q SB4nyAR3O0LfWjb3IZFo tNcjRC6eeVYeCEyqTi9i uPnslBazBY8wDWLq efkhKBSojF4uPKUpdLFm iSaxKM0wGBQuxgbsk427 GoVyEKU2APVqgIPkO5Ag mI7jFmUnGFDbIXUv D3JywTLyFSmeD963GNhd HzE7UPEyrpHiE9EmIYAv yKbsUqP7c4O3Gf5MtITq HWUbQE89TL04KY82 Z3YeTtkbzHCmdIP+PHRh YmxlIHdpZHRoPScxMDAl FjMzuXotEI9qPp3lXSHx LWNvbGxhcHNlOiBj z1bvBOKhQJrrOK2amIfj V2UkdNZ0LHLyg5p8Th68 L02qV7NldQJ+PGNvbCB3 zTE1pY7lToGwVfZ4 LUnhC548PwNytAAdXisg c4hfa0bviGa3OqBcANHb lwUklVujDWD2n5LcXa70 G79eKHvwYVHyEYQg VYBnWTWuoOxyqu3xvH4r Ii8+BWBbhTZ5fDT9cN7a FnWbWyE4EWffD459QtJh zDRcFhebV28sF6Py dXA+QIQvVom4RBOugVza WL9exSBdHFskDr7wSVZ7 CqElCzKmESqnC8MmBMTt xwgskitbfIA6FJBb PJRdxM98Mq0gsUaxYg6a QUXxOSC5KFHfqIKaN6Vr aN8eOwYvBVHhNOZxF1Lm aBIvQItqC097BRsu ObL4RMVtbwFtL0NgNUXg dOihAjR5l5J0Gd5NlOqe aMEnRK6aIiGnNWt1L3Kd Kvs5ITWmyNtmFF4p vWJsONmzRm8fzFhmsOsg UH0hDGQxvrave884EaLe l2jeNJSqpMAeTArlPWT1 H27id1M1LGEeQKGk QWB4fML7yG0kjLqcydti bGVmdDsgdmVydGljYWwt HXukV986HHIhpSpcWeMK Jsp7S4HnZdz5UKCs zVopAY1upPIgJCioKw9r jJurgSuyDE7vRLDaviae u638NbRtn9bmBTBgyQTh MChaNVW1J55wk3X5 TDMzRGRvXZO2nER5iX6c bGlnbjogbGVmdDsgdmVy dRvwTHfcNDceK925MJVq aNlnTb4FXtb0E1Uo Zct6KTUynYtcAA8xyAMj MBuqQl0qyBmhkSxvYR6f RXOackiqu332DaPhs4tl IDEwcHQgVGltZXM7 T45ei5K6FDNiCHCuTWD7 mPT3oN6pgKuhweevkUTf dDsgdmVydGljYWwtYWxp I179UYBpxMxhWgCv eWVyOjwvdGQ+GA14kf98 Z7BwRfyaMwo9JLIlZTI3 dJZ9eH7tYXMsBJjdg4V9 pOL1G8NfmfSlyu3q u7nsOVWy (more content not included)... Normal [facility] Consent for Treatmenton 12-16 Consent for Treatment [id number] #1.00CD:127 Normal [facility] Pulmonary Function Testson 0 01-04-2023 Pulmonary Function Tests [id number] 2#1.00CD:127 Normal [facility] XR Chest 2 Viewson 3 XR Chest 2 Views Exam Date/Time: 01/04/2023 15:21 EDT Reason for Exam: [id number] Report IMPRESSION: NO EVIDENCE OF ACTIVE CHEST DISEASE. CLINICAL HISTORY: J45.909. Shortness of breath. COMMENT: The heart is normal in size. The mediastinum is unremarkable. The lungs appear clear. No infiltration nor pleural effusion is evident. Ordering Provider: BRANDEN ORTIZ FINAL REPORT Dictated: 01/04/2023 3:36 pm Piedad Miller M.D. Signed (Electronic Signature): 01/04/2023 3:36 pm Signed by: Piedad Miller M.D. Transcribed by: MIGUEL Technologist: SARINA Technical Comments Radiation Dose: Ka,r in mGy = na DAP = na [facility] Interdisciplinary Note - Res piratoryon 01-03-2023 Interdisciplinary Note - Respiratory Courtesy Call made for PFT appointment reminder? Yesleft msg on VMB Does patient take any breathing medications? _ Breathing medications and with-hold times reviewed: _ Has patient had a fever in the last 7 days? _ Does patient have a cough? _ Does patient have SOB? _ Has patient had any known exposures to COVID-19? _ Has patient been tested for COVID-19? _ Patient told to enter through the [facility] entrance: Yes Patient told to enter through the Emergency Room entrance: _ Normal [facility] Interdisciplinary Note - Res piratoryon 11-23-2022 Interdisciplinary Note - Respiratory Courtesy Call made for PFT appointment reminder? Yes Does patient take any breathing medications? Yes Breathing medications and with-hold times reviewed: _ Has patient had a fever in the last 7 days? _ Does patient have a cough? _ Does patient have SOB? _ Has patient had any known exposures to COVID-19? _ Has patient been tested for COVID-19? _ Patient told to enter through the [facility] entrance: Yes Patient told to enter through the Emergency Room entrance: _ Normal [facility] Physician Orderon 11-17-2022 Physician Order [id number] #1.00CD:127 [facility] Coding Summary.on 11-16-2022 Coding Summary. CD:[id number] Gh0bWw+PGhlYWQ+PE1FV KSdH94kqXGupV2QE1pGZ Y9MLEPAHHNWLG5AYU9wp OH4SLmnW5PieuPy QvvpqEFhOZ01JGz0DHP8 hXzoSJcpdM2itRRsX4k8 BqQwVX31dU19IYpgMZSl BvN6BiBoqwcqxDXu Q4ixToVsuHSuPit+PHRh YmxlIHdpZHRoPScxMDAl DkNxuNqiGQ4lYx0vEZMu LWNvbGxhcHNlOiBj f4pwCGRsEGprSL9dfHja L6HffFQ4OZPeg2n8Po27 dHI+TVYoJFO6vNodYOfl h583YoLex2gbHFC2 dMFbVJqgNPW3T71da7M7 WPMzEEGpGIH5vUR4tR9k kSzmhszmC3HwbTDzPvT0 QVQ0mAWrlZ8dkJyq loalkU5zLoo+V37LCW3G ANQEAH0BFzb3A3JbFnyw dHI+GM07SNAxNJ38cIIv bNVdt3tudKd2YsWo BVDsSPE0fAyvQLnbi6Ju ELAqU39chQQzx8A5JCCv cZqmwTKqQdApnIG5iM2b CRqzmoznu3izcjih Cjmlg6jmib25lI25I96p ZIjuCMTcXGD4LCCzYXXy bAxeqt4beV1aGq3+IDxj r7ibk3zemXm9IaMy QPDhczGznMqzRLU3a7Ww Sb67J4TnqIrle3JbNmi0 ql66cDVxf8H9wWL9EJsc EZIpnO0kAIvmFiF1 ZPJdQpWmoT82vWZfWYsb Nw6qcGlegEcyZW9dAJZm yqvnFOSuuX4aWJOjkOCk aNneCW8rMESqzxsp l756ZkMySCT3QUQxlULu W9MhfK9vEyYsQYElVCYg O3KtdRTgADxqW705SGij KgA2AKZceiLuG2Fh ZPAxkBocPtI4t5R6Ni2X u2EudgsmRYA7YDhdRADy KuHdMqPuDyE6G4TtXme7 AQIowRbzPH2aF1Fj RSEzgovnuoanbNS8VFZv XPYpeP58fNJoKHbjYo9c h7W0p541KQYqZJPhuA66 Cd7qnKooLIJsyPRH pU9wapchx4hgbguyAwMi YAPoGUq4LRj2UXXvxQag CeIdPTC6PgM0ZLA7bWJj gJ0uoMdozdgssW3x Oyc+T20oqA8uPNP1ADI2 aipjUMNmtsXgTF54VG78 G1QkYzokhZUzuBS+PGRp seIjcPsaIV6kXjHf s3dfc1TdJWeaH2UfUAOt AGiqFlz0RFLvPJL7yDK7 eN5yEUDxMHxrg4G6oLH9 I8JbgnJvyh9fr1ol PIOgOBlnE05jhEWko5G3 CCWrmYR4KGKupLgxQzFp aO98Hjp+VJKbxOxkl1Ly Kvokf0xdq9gfqWq2 IjMwJSIgdmFsaWduPSJ0 h2WmGq17I40pSPwiDSEd NKXjKWQtXPOhpHsasb4d xB4gSx7+PGNvbCB3 uOF4wD4cQENjZoZ7DMve E307QoMlpJYqQexts6uf y7pliHs3ArHeKRQhhlNf hOlvYBJ1u5NvUi85 T44dLBqzBVWhDMDmXOTp JRBvjKrmkd0etX7fKv6+ QZ3ab2zcnu54iO56pEQ+ XBYoMFF8vXziYWtt QCDzuZ2nRTnjQvL0WUDp RcYweN16kLKvKOqjMu9g eGqzeSopYF8eSTGrdrwc m206MrWrq8fgJPQw cVJiFJffBNJ6G91gm3M6 PXHvIQGbGBU3rVE3bU9r bGlnbjogbGVmdDsgdmVy eSwiHTkoLAlqV528 IHRvcDsnPlBhdGllbnQg GvLaCKg4S2QeTyw8COFc bYrkIZ5byKFzQXupBp5h aPbpjZdrHP5fSRKe kolsk054MfWha9wrKIVf vEKrVUbeIBV8F86rr6T8 JJOqEAYsURC0eNE0dY7v bGlnbjogbGVmdDsg onUfhFujEFwcVWrjQ476 IHRvcDsnPkJpcnRoIERh tMN7OR23FU14hTYea1P4 lJZ7S6TrGAPfapkh sarkpGR9AIXoSMRtsA91 Ds8uiCzyNs5yBZIdJNF5 HGMwyYShL9NskN3yVoYb XWGhXGZuM9DkvTFo NYmnL012OIydJhK3LZCq ouHfN8XyAVRroSuoRsI6 q1J6Rz3RN8P1HS97EQ65 hBFpd0N6gSJ8S8Vn PGKtkjiljmfytLK4OHOc KXEesD68Dw2rpVekOg5s WHBbFZA3FTMhkHEzL0Qp hH1sMeNsRTMbZNCh Z9BnqSTmVTxqH994JRjn HlW7JIUbwyIxW9IyPUWw oXsuXwS7z5T5Gr2GYRf0 XV88LX55aLZfg7G1 tRE5H1LsKQAsgjkdzmkj oVY3NMUzJMDpxT07Pk0f yImtFz7oJJOfJMB0ABCh cJRoA2GkrL9sRiYa FGWkCJHoH7EvjIDrRIjk A518JNosEgS8YNOfotFi O1XkADUtaExjIkQ0d0R0 Jo2CQGVeAQ22RAQ0 kKS2RM72PF34Z8MsDzad dGFibGU+PHRhYmxlIHdp ZHRoPScxMDAlJyBzdHls LE4sBn6rDKYgSVZj iHoweASlWdJxz0egNXIu PCbjZL7itSmtK7MmwZL5 YERnx3h5Te28I06oL2Dz dXA+WVPxgAL6vDK2 oR5lGiFxOlV1EHubQ838 FoGmoZCvLmlxo5jqn4dc gQl6IiH3AUWtxpQspIay JNI5t5BvXo30A85t IHdpZHRoPSIxNSUiIHZh gGtdpf4khW9gWc5+PGNv oEO9nGV8wX3jDbNnHtW5 RFojH571VbNkuOKy Lmlva4eqw7rrsPz1GsLi CBHzuiOltGbwNVO2g8Qx Qg11D4VdyDvvq7FhOhk4 dj16nOGcq0K5cFJ5 S2UxPGGmgzclmWZrsWgn OV2xPHWiogrhRREofV7j HCFqQ9u0RfQhUeD6BLxm N3MfcvC4PUHfkDQp HIwyNPJ4G68uv9W0ZZFe OUDvGVE5gIM4hM8ueHjy bjogbGVmdDsgdmVydGlj LYdkTHrcZ263IOPp oSjaUXEzyW2bASTjqLDt iTdbXL4qNDQdxoseBjbE Df1FMjhnD9iEJWTPDZGK DK76EJ66gGKvw9V7 cLZ1U0TzCXTeetbgpziq oWP2DSFtRKBscN76mDKg PTnjRq3ta3F9g308GDAh DWAqmQ81To8swRfu VSEyhDMFsD2wiucqx3uu goyxAeNfDLNtIEg1EFn9 SPMdbKilBwFxLUV2RpU7 CUK4rYQliF5jxVij zgejiK6fZkm+MDkvMDUv QDf9OMofpYW+PHRkIHN0 nYljMIppBOCquQ7eAYIh H2z1HbYjFmE0RQzt T2GbFMYqojdbAp10lR7y RmLaOaP4DJjcO3SregP5 JQDveNZrWVkmWUR9O75q l9A7RICtZAGnTAG6 xPE9zN3plFbinnxkzNAx dDsgdmVydGljYWwtYWxp L016FFHgmVviKsD7YIwu BTHlHU39GP38zCQf e3J6xVL3L2NuZFAbklpr hjdipEH8FAErKMWojU50 lFKmPWujWw1id7H1y832 PLZoMNHylM11Fg3l nDcgVEYnvZWWyW3dnvbc r1plcnjcHpHnERSyFKb0 BPv6XUGolSrtSjLvZXJ4 BiD5IFH3wGOqnU5g cUxooidwoP0wKbs+RmVt FCfgQL51YC08kRArc1M5 tNT8F9RjKMGpadwifdlp vUC2KVHpJWLvvD22 xZGxWOquPo0zx8X2h215 TVYiLIToiH27Mr1ydFxn GZSvdMDOoP8kekxzc8fb cjogIzAwMDAwMDt0 QKg1XMApjLhhNgArWSR6 DkU0EGC4fLFprN4gwBbg xnrlcL3eGgc+TGFiIERy r1Rrp6RoJC27FE64 Q5WaDfcdcCPplXH+PHRh YmxlIHdpZHRoPScxMDAl PbQjtZwiDX6vOp7cLMXj LWNvbGxhcHNlOiBj g5wmFYTfUQvgCK7jeSnz R6AuxDO6AUGef6v3Tr34 K97tU2VmeUT+PGNvbCB3 cBC4iE6oPcXwAuG6 ZTtbJ019BwSrnXNtNixv z9lla5ynaLm9FjCeQTLj nbVnjGicQGS0i6XhLp81 V38eOFekVYPaDTKq PIRhBRIssNtavl5vsJ7o Ii8+XGFkaDM3qJH8uP4c AjKiBxV8QPigR905RbNq lHDwVxvzM78mH8Pg dXA+WWEyCan4HJVkxRom KN3djDIiIKuuNf3aRFM6 AzLrWqHaAIhkY7FlGKVr neokmnngkYY2TGNv BUPbfT23Ng0vgVurFh8r JVTfYBC5YJWyzFGvD7Dr mG9vThKeFHCiDTWdU2Vi aCQlOLzjU533GQae CfK0UIJgmhDcA5TmJHAy gDxcIdV9i6E9Dc9TaHqh aGGzTC0pUcNmBMc7S5Px Khk1IKPcrUpdKV6r eNCxWQfpTl8chClzsIre HS1nAMXmteylb549QmFw u1rxRDEwwJHtNXzaBQN0 Q10cv2H2HQMtQJJk CQY9aOP9lI7fiLdmbfzb bGVmdDsgdmVydGljYWwt MBbpU983HOSjgBexMuPC Ilh0K0LwAwa2TKUh xLadTU4wcOSmCZcoPm0e gZoueXoqML3fPJKzsqtf n011AfVcq3vgYERbcDYs NFpkEXZ5F85bk5L4 UPTvWQDvFSF5lXZ2iZ2p bGlnbjogbGVmdDsgdmVy gSarCTdhLLkyW708EFJm wUxgVl6ADez2M2Kh Srp9DTZpdGyfRJ1rbPAb SUiqYl5efVgpbVktGW6e LZIlhbnwf454RrXnr5ih IDEwcHQgVGltZXM7 A30pm0L8CHEyQDNhWQV3 zEI3rF7pkCyuctkgiWJr dDsgdmVydGljYWwtYWxp J656LQJgmUzrZfJy eWVyOjwvdGQ+DS37iq61 R7QlTirsNzn5DQRbMNJ0 hCJ9tB3jPNQmXLffw6Z3 wVA1J5MfjrYaro2f b2xs (more content not included)... Normal [facility] Auto Diffon 11-11-2022 Basophils/100 WBC (Bld) 1.3 % Normal 0.0-2.0 [facility] Comment on above: Order Comment: Order Added by Discern Expert. Performed By: #### 1 [id number], 0097935, 9248088, 1089017, 77635459, 9300648 ####[address] [place] [address] Basophils/Leukocytes Auto (Bld) [Pure # fraction] 0.1 E9/L Normal 0.0-0.2 [facility] Comment on above: Order Comment: Order Added by Discern Expert. Performed By: #### 1 [id number], 8978788, 6182807, 8543462, 48409680, 3922608 ####[address] [address] Eosinophils/100 WBC (Bld) 0.6 % Normal 0.0-8.0 [facility] Comment on above: Order Comment: Order Added by Discern Expert. Performed By: #### 1 [id number], 0225998, 5141312, 9639028, 17438318, 2314869 ####[address] [address] Eosinophils/Leukocyte s Auto (Bld) [Pure # fraction] 0.0 E9/L Normal 0.0-0.5 [facility] Comment on above: Order Comment: Order Added by Discern Expert. Performed By: #### 1 [id number], 9320693, 5086372, 8971853, 20721398, 7621050 ####[address] [place] [address] Lymphocytes/100 WBC (Bld) 46.3 % Normal 14.0-50.0 [facility] Comment on above: Order Comment: Order Added by Discern Expert. Performed By: #### 1 2544373, 7932939, 2986642, 3584918, 61814828, 7123013 ####[address] [address] Lymphocytes/Leukocyte s Auto (Bld) [Pure # fraction] 4.0 E9/L Normal 1.0-4.0 [facility] Comment on above: Order Comment: Order Added by Discern Expert. Performed By: #### 1 [id number], 3828811, 2910576, 0971137, 17712010, 6036598 ####[address] [place] [address] Monocytes/100 WBC (Bld) 4.5 % Normal 4.0-14.0 [facility] Comment on above: Order Comment: Order Added by Discern Expert. Performed By: #### 1 2816645, 8270078, 4488961, 6783360, 57974237, 3397291 ####[address] [address] Monocytes/Leukocytes Auto (Bld) [Pure # fraction] 0.4 E9/L Normal 0.2-1.0 [facility] Comment on above: Order Comment: Order Added by Discern Expert. Performed By: #### 1 8067169, 4122575, 4213477, 0858177, 78762303, 7277353 ####[address] [address] Neutrophils/100 WBC (Bld) 47.3 % Normal 36.0-75.0 [facility] Comment on above: Order Comment: Order Added by Discern Expert. Performed By: #### 1 8251273, 0143391, 5873462, 3167799, 09540291, 5410460 ####[address] [address] Neutrophils/Leukocyte s Auto (Bld) [Pure # fraction] 4.1 E9/L Normal 2.0-7.5 [facility] Comment on above: Order Comment: Order Added by Discern Expert. Performed By: #### 1 7966408, 4802775, 9870541, 6784412, 40625089, 5182352 ####[address] [address] CBC w/ Auto Diffon 3 Erythrocyte distribution width (RBC) [Ratio] 13.2 % Normal 10.9-14.2 [facility] Comment on above: Performed By: #### 1 [id number], 8589762, 2617729, 8962560, 72009217, 7967715 ####[address] [place] [address] Hematocrit (Bld) [Volume fraction] 44.4 % Normal 34.0-46.0 [facility] Comment on above: Performed By: #### 1 0486980, 3474968, 9971616, 2665649, 57608566, 5523501 ####[address] [place] [address] Hemoglobin (Bld) [Mass/Vol] 15.1 g/dL Normal 12.0-16.0 [facility] Comment on above: Performed By: #### 1 0202360, 5423710, 5413943, 8537899, 91844825, 6291577 ####[address] [address] MCH (RBC) [Entitic mass] 30.0 pg Normal 27.0-34.0 [facility] Comment on above: Performed By: #### 1 4875405, 5746754, 0473072, 5740161, 99704635, 6862901 ####[address] [address] MCHC (RBC) [Mass/Vol] 34.0 g/dL Normal 31.4-36.0 [facility] Comment on above: Performed By: #### 1 0290662, 2558369, 9525050, 0562243, 47806860, 9576469 ####[address] [place] [address] MCV (RBC) [Entitic vol] 88.2 fL Normal 80.0-100.0 [facility] Comment on above: Performed By: #### 1 1595252, 1148154, 4441980, 7489139, 37457734, 6159424 ####[address] [place] [address] Platelet mean volume (Bld) [Entitic vol] 8.4 fL Normal 6.4-10.8 [facility] Comment on above: Performed By: #### 1 1023650, 1643710, 2225899, 7904863, 82124834, 7441835 ####[address] [place] [address] Platelets (Bld) [#/Vol] 326.0 E9/L Normal 150.0-500.0 [facility] Comment on above: Performed By: #### 1 8169551, 2251805, 5311120, 6693033, 42459792, 0405789 ####[address] [place] [address] RBC (Bld) [#/Vol] 5.0 E12/L Normal 4.3-5.9 [facility] Comment on above: Performed By: #### 1 9381988, 2831058, 7350728, 4085223, 77201392, 8555924 ####[address] [place] [address] WBC corrected for nucl RBC Auto (Bld) [#/Vol] 8.6 E9/L Normal 4.0-11.0 [facility] Comment on above: Performed By: #### 1 3824694, 3016738, 8371962, 6861205, 55005337, 4926070 ####[address] [place] [address] CHEMISTRYOrdered By: SYSTEM SYSTEM on 11-11-2022 Albumin [Mass/Vol] 4.6 g/dL Normal 3.3 - 5.0 gm/dL [facility] Albumin/Globulin [Mass ratio] 1.8 {ratio} Normal 1.1 - 2.2 [facility] ALP [Catalytic activity/Vol] 64 [iU]/d Normal 21 - 98 Int._Unit/L [facility] ALT No additional P-5'-P [Catalytic activity/Vol] 31 [iU]/d Normal 6 - 46 Int._Unit/L [facility] Anion gap [Moles/Vol] 10 mmol/L Normal 6 - 16 mEq/L [facility] AST [Catalytic activity/Vol] 21 [iU]/d Normal 5 - 43 Int._Unit/L [facility] [facility] Bilirubin [Mass/Vol] 0.7 mg/dL Normal 0.0 - 1 .1 mg/dL [facility] Calcium [Mass/Vol] 9.1 mg/dL Normal 8.9 - 11. 1 mg/dL [facility] Chloride [Moles/Vol] 106 mmol/L Normal 101 - 1 11 mmol/L [facility] Cholesterol [Mass/Vol] 222 mg/dL High 120 - 200 mg/dL [facility] Cholesterol in HDL [Mass/Vol] 39 mg/dL Invalid Interpretation Code [facility] Cholesterol in LDL [Mass/Vol] 158 mg/dL High <=129mg/dL [facility] Cholesterol in VLDL [Mass/Vol] 58 mg/dL High 7 - 40 mg/dL [facility] CO2 [Moles/Vol] 26 mmol/L Normal 21 - 31 mmol/L [facility] Creatinine [Mass/Vol] 0.6 mg/dL Normal 0.5 - 1.3 mg/dL [facility] GFR/1.73 sq M.predicted among blacks MDRD (S/P/Bld) [Vol rate/Area] mL/min/1.73 m2 Normal >=59mL/min/1. 73 m2 [facility] S GFR/1.73 sq M.predicted among non-blacks MDRD (S/P/Bld) [Vol rate/Area] mL/min/1.73 m2 Normal >=59mL/min/1. 73 m2 [facility] S Globulin (S) [Mass/Vol] 2.6 g/dL Normal 1.4 - 4.0 gm/dL [facility] Glucose [Mass/Vol] 79 mg/dL Normal 55 - 199 mg/dL [facility] Potassium [Moles/Vol] 4.1 mmol/L Normal 3.5 - 5.3 mmol/L [facility] Protein [Mass/Vol] 7.2 g/dL Normal 6.0 - 7.8 gm/dL [facility] Sodium [Moles/Vol] 138 mmol/L Normal 135 - 145 mmol/L [facility] Triglyceride [Mass/Vol] 292 mg/dL High <=149mg/dL [facility] TSH Qn 1.66 m[IU]/L Normal 0.34 - 5.60 mcIU/mL [facility] Urea nitrogen [Mass/Vol] 19 mg/dL Normal 5 - 21 mg/dL [facility] Urea nitrogen/Creatinine [Mass ratio] 32 mg/mg High 10 - 20 [facility] CMPon 11-11-2022 Albumin [Mass/Vol] 4.6 g/dL Normal 3.3-5.0 [facility] Comment on above: Performed By: #### 1 [id number], 9453024, 3041315, 2484392, 67292896, 2047639 ####[facility] [address] [place] [address] Albumin/Globulin (S) [Mass conc ratio] 1.8 Normal 1.1-2.2 [facility] Comment on above: Performed By: #### 1 1986852, 7134160, 7168735, 6384433, 99534813, 5931048 ####[facility] [address] [place] [address] ALP [Catalytic activity/Vol] 64 Int._Unit/L Normal 21-98 [facility] Comment on above: Performed By: #### 1 1715982, 2415761, 3172182, 0027961, 54460648, 3165986 ####[facility] [address] [place] [address] ALT No additional P-5'-P [Catalytic activity/Vol] 31 Int._Unit/L Normal 6-46 [facility] Comment on above: Performed By: #### 1 2365152, 8720773, 0952981, 8677814, 28124692, 4364985 ####[facility] [address] [place] [address] Anion gap [Moles/Vol] 10 mmol/L Normal 6-16 [facility] Comment on above: Performed By: #### 1 5486949, 3838494, 9881911, 5280596, 94775558, 7980113 ####[facility] [address] [place] [address] AST [Catalytic activity/Vol] 21 Int._Unit/L Normal 5-43 [facility] Comment on above: Performed By: #### 1 3630410, 5974319, 0558383, 3042471, 73365706, 3987888 ####[facility] [address] [place] [address] Bilirubin [Mass/Vol] 0.7 mg/dL Normal 0.0-1.1 [facility] Comment on above: Performed By: #### 1 8416222, 1767743, 5224678, 0332863, 75960294, 2518457 ####[address] [address] Calcium [Mass/Vol] 9.1 mg/dL Normal 8.9-11.1 [facility] Comment on above: Performed By: #### 1 4134750, 8000993, 4537820, 6203518, 68905524, 1265655 ####[facility] [address] [place] [address] Chloride [Moles/Vol] 106 mmol/L Normal 101-111 [facility] Comment on above: Performed By: #### 1 1715596, 0502606, 8503127, 9140038, 08750530, 3301256 ####[facility] [address] [place] [address] CO2 [Moles/Vol] 26 mmol/L Normal 21-31 [facility] Comment on above: Performed By: #### 1 6954976, 8876891, 8402423, 4371139, 64785190, 1929840 ####[facility] [address] [place] [address] Creatinine [Mass/Vol] 0.6 mg/dL Normal 0.5-1.3 [facility] Comment on above: Performed By: #### 1 2024036, 0293042, 3297948, 2324193, 62947314, 9334227 ####[facility] [address] [place] [address] Globulin (S) [Mass/Vol] 2.6 g/dL Normal 1.4-4.0 [facility] Comment on above: Performed By: #### 1 8956801, 0921617, 9286515, 3989262, 83404234, 8955153 ####[facility] [address] [place] [address] Glucose [Mass/Vol] 79 mg/dL Normal 55-199 [facility] Comment on above: Result Comment: If t his glucose result represents a fasting glucose, interpretation should refer to the following reference range: 55-99 mg/dL Performed By: #### 1 6487011, 9040943, 0587105, 4020491, 96941553, 6896850 ####[facility] [address] [place] [address] Potassium [Moles/Vol] 4.1 mmol/L Normal 3.5-5.3 [facility] Comment on above: Performed By: #### 1 9112657, 1994643, 2454728, 8900712, 27892596, 9814416 ####[facility] [address] [place] [address] Protein [Mass/Vol] 7.2 g/dL Normal 6.0-7.8 [facility] Comment on above: Performed By: #### 1 7836256, 3214461, 0359699, 8541341, 32591814, 1167231 ####[facility] [address] [place] [address] Sodium [Moles/Vol] 138 mmol/L Normal 135-145 [facility] Comment on above: Performed By: #### 1 4842939, 7188705, 4265427, 8810808, 44810561, 8294356 ####[facility] [address] [place] [address] Urea nitrogen [Mass/Vol] 19 mg/dL Normal 5-21 [facility] Comment on above: Performed By: #### 1 4401469, 9833536, 8952668, 3922857, 66159938, 0947422 ####[facility] [address] [place] [address] Urea nitrogen/Creatinine [Mass ratio] 32 No Units High 10-20 [facility] Comment on above: Performed By: #### 1 9278974, 2819504, 1930804, 0035986, 02888997, 8889777 ####[facility] [address] [place] [address] HEMATOLOGYOrdered By: SYSTEM SYSTEM on 11-11-2022 Basophils/100 WBC (Bld) 1.3 % Normal 0.0 - 2.0 % [facility] Basophils/Leukocytes Auto (Bld) [Pure # fraction] 0.1 E9/L Normal 0.0 - 0.2 E9/L [facility] Eosinophils/100 WBC (Bld) 0.6 % Normal 0.0 - 8.0 % [facility] Eosinophils/Leukocyte s Auto (Bld) [Pure # fraction] 0.0 E9/L Normal 0.0 - 0.5 E9/L [facility] Lymphocytes/100 WBC (Bld) 46.3 % Normal 14.0 - 50.0 % [facility] Lymphocytes/Leukocyte s Auto (Bld) [Pure # fraction] 4.0 E9/L Normal 1.0 - 4.0 E9/L [facility] Monocytes/100 WBC (Bld) 4.5 % Normal 4.0 - 14.0 % [facility] Monocytes/Leukocytes Auto (Bld) [Pure # fraction] 0.4 E9/L Normal 0.2 - 1.0 E9/L [facility] Neutrophils/100 WBC (Bld) 47.3 % Normal 36.0 - 75.0 % [facility] Neutrophils/Leukocyte s Auto (Bld) [Pure # fraction] 4.1 E9/L Normal 2.0 - 7.5 E9/L [facility] HEMATOLOGYOrdered By: Salomón Villanueva on 11-11-2022 Erythrocyte distribution width (RBC) [Ratio] 13.2 % Normal 10.9 - 14.2 % [facility] Hematocrit (Bld) [Volume fraction] 44.4 % Normal 34.0 - 46.0 % [facility] Hemoglobin (Bld) [Mass/Vol] 15.1 g/dL Normal 12.0 - 16.0 gm/dL [facility] MCH (RBC) [Entitic mass] 30.0 pg Normal 27.0 - 34.0 pg [facility] MCHC (RBC) [Mass/Vol] 34.0 g/dL Normal 31.4 - 36.0 gm/dL [facility] MCV (RBC) [Entitic vol] 88.2 fL Normal 80.0 - 100.0 fL [facility] Platelet mean volume (Bld) [Entitic vol] 8.4 fL Normal 6.4 - 10.8 fL [facility] Platelets (Bld) [#/Vol] 326.0 E9/L Normal 150.0 - 500.0 E9/L [facility] RBC (Bld) [#/Vol] 5.0 E12/L Normal 4.3 - 5.9 E12/L [facility] WBC corrected for nucl RBC Auto (Bld) [#/Vol] 8.6 E9/L Normal 4.0 - 11.0 E9/L [facility] Lipid Panelon 11-11-2022 Cholesterol [Mass/Vol] 222 mg/dL High 120-200 [facility] Comment on above: Performed By: #### 1 7866311, 1674734, 6863977, 1051486, 23466416, 0311105 ####[facility] [address] [place] [address] Cholesterol in HDL [Mass/Vol] 39 mg/dL Invalid Interpretation Code [facility] Comment on above: Result Comment: HDL > or equal to 60 mg/dL: Low cardiovascular risk HDL < 40 mg/dL : High cardiovascular risk Performed By: #### 1 4427236, 7335575, 6355229, 2141224, 23747466, 9962180 ####[facility] [address] [place] [address] Cholesterol in LDL [Mass/Vol] 158 mg/dL High <=129 [facility] Comment on above: Performed By: #### 1 1777987, 1585659, 9010588, 2071679, 94731793, 8180407 ####[facility] [address] [place] [address] Cholesterol in VLDL [Mass/Vol] 58 mg/dL High 7-40 [facility] Comment on above: Performed By: #### 1 1914446, 8889343, 1234312, 5359036, 05993362, 4762961 ####[facility] [address] [place] [address] Triglyceride [Mass/Vol] 292 mg/dL High <=149 [facility] Comment on above: Performed By: #### 1 3100007, 0640068, 2816550, 7717406, 31956348, 7407335 ####[facility] [address] [place] [address] Physician Orderon 11-11-2022 Physician Order [id number] 0#1.00CD:127 Normal [facility] TSH With T4fr Reflexon 11-11 TSH Qn 1.66 m[IU]/L Normal 0.34-5.60 [facility] Comment on above: Performed By: #### 1 4275945, 2271021, 9823843, 0215557, 31826117, 6116773 ####[facility] [address] [place] [address] eGFRon 11-11-2022 GFR/1.73 sq M.predicted among blacks MDRD (S/P/Bld) [Vol rate/Area] mL/min/{1.73_m2} Normal >=59 [facility] Comment on above: Order Comment: Order added by Discern Expert. Result Comment: eGFR is race adjusted. AA=. Performed By: #### 1 6718511, 6092513, 3258115, 6061225, 05949797, 6253536 ####[facility] [address] [place] [address] GFR/1.73 sq M.predicted among non-blacks MDRD (S/P/Bld) [Vol rate/Area] mL/min/{1.73_m2} Normal >=59 [facility] Comment on above: Order Comment: Order added by Discern Expert. Result Comment: Cash Clerk cristhian kidney disease could be indicated at eGFR's of less than 60 mL/min/1.73m2. Kidney failure is indicated at less than 15 mL/min/1.73m2. Performed By: #### 1 2068127, 4077196, 8938857, 6934413, 18148337, 4008458 ####[facility] [address] [place] [address] Coding Summary.on 11-09-2022 Coding Summary. CD:[id number] Gh0bWw+PGhlYWQ+PE1FV GJgE33rlRPqkR2AC8hCG L4OTIHBHELUPX6TDO7ar BZ1BJpvU8YwdgLh GlgkyMDhDV31SYz5ZAS5 nOhaAOkpwG9ndZMyH1x3 LnDuFL66cD28SMwqLVIq BcE2MsLwekadxXWc O5fbOeJxrHAsFzr+PHRh YmxlIHdpZHRoPScxMDAl XcJluYlkAZ6fDj1kSMHm LWNvbGxhcHNlOiBj x0cbZWJcRSycQS8kcBqw O0YdlXE9FHFcr6d0Ic25 dHI+HVWqXTI6uRkjLDbg w439WvLpm4mpRBF0 jTAwDHelNTN8O74lt0I2 AOUuRJNlPSZ9lRZ0bG2p tVtueqhnY9CtuODoHeZ6 XDC2sFLekE9jeWqv qjsyoN5sKru+B37WFX2G IGKJVH2EUub1V9QrGhja dHI+JO91SNDrRT16oSUy xFAyp0bkfHi5VkCd CMSoXMW3aElyMEvgf6Kc LTAmA46eaQEug0O2PRJr nIyccZCgFpLfhBZ3tH4u KPvnpheqg3ebtvny Ouotq5kfwk54qI36D67l PXtbQOXnJSF7VPVnMFXf cLdbsi8ukG7xGq4+IDxj c2bha4xwmKn3YzPp QCBahzHxfRqoVGA9x2Cg Vb68X6FniGezr4BtEox0 ka74lLJel7B8hRU8AXna ADEbrN8yFDnxRrW8 IPLzLhSlvI36iNDwZMpz Ae2feGbssHisJX1eHJIe stefVOAylK0aQVMvxDTy fCdkJP1nSNIdyrny c992GtLxCNS4WXAbfGXb F9CugT2oZrUyRCQqUIEj I4XfoWXpOYobS049DUou WkE5INJlmtRnG4Gz NNGzuZrpQjP5l7T0Dp4W m8WrsmcoYLP9NZklDVJt UhQ6GoMlZmE2M6YqXqy1 RZKthFbeNF3kD5Rr MBSbqvjqkbiymZU1NKMs AMHgzH66qSHxZJcbQa6u h1M3y432QRTlHHBlzF66 Qh8fpBruQNAnnUXG cT2wsrgbw4htujifPlFd FAFyNXw0IPd2MXEwyQnu YrChAMA1PsO5TNL2tUEh iN0mqWygnoqfvW4m Oyc+W70ihC1pWJT1GIC5 sivuEBVabrWiLZ82JO87 U4DnBykgtPDquMS+PGRp wdJfnOnqBA9iDyQk e8iyd0HmYYtoY3SeJXDn WVidMqf4UIPfQSN5yNP7 bT6iIMMwKQbkj8Y2uBA5 E3ZschQglu4ly3dt WYJsAJgoP02cjVEni1H9 FGXppBH9NRDjbMxvTgPg kE29Rfk+ELVfjWjse7Yq Hoeub9zgh9vsbBb7 IjMwJSIgdmFsaWduPSJ0 m4QqEv80D70iDZjcDUGa DAUaQLXtTZFgcMcyha4n uA1yCk2+PGNvbCB3 fJN1iB6rVAJwJyL6VImm A279DpTlxVTzKrlnh8fv h5dstUt5YdAvIKDvsbUw jWcrYVH4q9PcFh35 J25iCHtiFVTxVTZwMGIk YIFuxLqmbj3knG9aHi4+ CK3zf4fhme79bL11aTR+ USHlRAX8vFvyOTub MYUeuQ5qBKahFwM0ILNf XnSveD48yWTfGMnbYy5f iEklkFfcKD9iLGRkypxl r604YxRez9ohYMWp hVHaNKktNJU8F59ky9N4 ARTtKJNcIVD1gUE0eQ7s bGlnbjogbGVmdDsgdmVy nYfnQQvrKScqN648 IHRvcDsnPlBhdGllbnQg DoYpCMl5O3LpRjf6AGMh nNvmXB4cwKXiWOpfDt7m aLffvWctVZ1fXSFw kgrck352JxCqy6ioXJOh uJDtUVyfPQA0N60pv5H4 UZDsDYDuKAF1wAF9wF9j bGlnbjogbGVmdDsg fnAqwToxIRozIDhdB317 IHRvcDsnPkJpcnRoIERh zEJ7IH66ZA60hEDyj3P4 iWC9F0DsUADuopjo kladbUZ4SLAcKAUcnZ36 Wd3fjMkvKw7jOSEeRSL8 FLTmuBPfL9EiqE2tXdCg FGHyIEHkS8OqcEQy XKsiF442GZblWkP3VEXg lnWmR3QhKFHpfPimEjM4 d4W4Kr5FJ6X5MC66CE78 rOLjv5Q6lFX8V0Kg LYZkerubzrbijSU3GDVk ZHPsmN32Px4llQxbGl2w BADxSLH0EGAzdFYuO2Al aC8gPdSkUJLqYRGn R7NudDMtZEifT174QGhm VcR6HTNuduJxV0TnCUGt nIkaDoS1l2L5Xc3XFAs8 BL69FF16iXZxk4X8 vST2L5YeKOHdxjmxmmfu yIC9KRRdIWAgkE10Sa8i yXptGe1dMTVdFFQ3AKAu uNCeF2FmyY1qIfBz XGTxWPWxU8BkuPPrKIsz E443NRhgGbN9XMEvyaIc R8RdCTGvpAvbOaM1b0O9 Fa8VHGZpHC27MDJ3 aFU3FT35ZY15U9KfWdbv dGFibGU+PHRhYmxlIHdp ZHRoPScxMDAlJyBzdHls ZG0vVr5fTLXzVYTg tHlaiHYiFjLok5bbJSKn PCezST2hqVbpG5CddBJ1 USKzu2e4Hd20B34cI7Ya dXA+UCAveDM8nRI7 uU3oFdWnVuJ2OCvjV035 ZiQmuVVrFzjqv8bxk8xu uUg6QtD0QFYxklZecZwo LTF9s4VrEh60K11h IHdpZHRoPSIxNSUiIHZh dSqzwm4xuE8dRr6+PGNv lNC8eOG5kP0yYtKaFlP4 KLhiW372GeWldBAs Wmepr1fpv1mgtAd3YkUw HXUaobPvaShvCIH9w0In Gt92N1IudYizw6IyRih2 qn78xZTxl3K7rTC0 J9KwXLZrycdazRUusBrd VV2nCXPjmxmpOUTdyT5j IQLoU6o5JkJdBhI3SWzc N4SjsmU8QYFhmEBg RGciOGW9R57rv9L6RHQu LJEmTXC5aZN6lH5piVia bjogbGVmdDsgdmVydGlj ZYwzARgtD304GBIc nOxeDZHjnD3fDFVheKLu pPdwYL4vUMAhwdbfEqgQ Dk1KFxzlE3gCNVXGPWWR JT35FJ94fXIym9Y2 bVR2H4YqTTWbwmdkjryi aTY9EJToUXDcbZ78qUYq GNwfLx5hn6N9l998JBKb RXNgsA32Qg1yuQme AJBkiSRRtT2rzuuco8zc odjrJkRfYIIbJLj3NTh5 DFQbwXzxTaLeZFS5RyJ2 XIZ8sWFtbI4diJsy ehfqpG4lBkj+MDkvMDUv PMt4KGskcYA+PHRkIHN0 zVhrTKboISNxeW5mBEAt P0x4JsUgZvX3UWut Q8WdBTRgiyqkNl09rR8w PrJhZvE6YOkrD9InegU5 CCNihFVuIRstIBQ4U55w n8J8KILuNVHwGWF4 yLM1dN6rxBoeimvqzPQs dDsgdmVydGljYWwtYWxp H971NSIquHcqZzI7DGcn MPOmGT95BR85lQXb f2O4vAL8J2XfAXBzldyt owaszZO1LKClXJBpcJ76 iNMcZMotPi5ct3K4a512 HRPwVWBccH32El8w fJcwSDZzkXVCtY6skbcu w4fqrvbrByPfFPAdANu6 HEg5RCTwgGlnOjSbVQJ9 IuD0NCG5oOMphH4r jErpyhzmaF8aQeg+RmVt AAelAF02MZ35wVOfa3E3 kHT2D1PkTWWykjhvskqe wLJ5HFYiWMGxnX20 wWQmRXyvAl7ue4F8g150 QBXhYITwsB54Wp7waVts YFCndMOJqE7idlgqh0pz cjogIzAwMDAwMDt0 PSc9IHWbdAqoPqUaMPN5 EsW8QHZ2aGXfeE6veTye wjjgxV7mAkr+AV3dizzb xjW9WA34XA17D1Nw PjwvdGFibGU+PHRhYmxl IHdpZHRoPScxMDAlJyBz sLthKZ1bFg0dFJGcHPKz xJibjTUnYcCsk4uc EBBjIPcjCJ7kgCznI2Xu mMV6SAXyn9i5Yp59W52d B5TwbTT+OSRdrCL0mYW5 uS8aKdTjCqU7ZHkn V146LdBvpVNiEviva1cc u5jmpBx9CzRgZJUsenEr aFgtMLQ3j0ZbWn97U44v IHdpZHRoPSIyMCUi BWJkxGvxnf8ywW7lCi6+ AOGzxGK5cSM6qW3vXwJe MzR1IWauC178NiHfkKYr PbvhF41nY5MhxTA+ FXVqLpk1EZTqjXhtHF7f dDNbGMnmTn2sWGS9YnOg IdNlXZgiQ9SwISGukcpj ajzzgOX9RPLdSUAx xJ58Nl6upQlfIn1hAQQk SQT2XAUzuFAwO1VeoY4q EqVcDQCrQBApA7UumSFw MPesE444CHrvCrB7 DQPkjhCtA2BuTUKshJku QpW2y0J3Tx7RyUlnsFWm GR3tUeOkJWa3Y8YhEad5 OXWvpQpxPN5pvQEr UOywMg5rvYzlfSjcOV4y SAAmkoyhn376WwDbu0qx EQOqrKCrEXygXSK4E59x v4L0DWWcQPUuYMD4 uLQ8kM7tuPeywbbapOBx dDsgdmVydGljYWwtYWxp M338UNSrpNyfWhTWAxo9 P8LwXxi3UKUodQlj LT0nzYOnHNkhLk0vtQyr vUxkFU8aUAFmgspio777 FtEeg9gtXMZhrFSsRPtf RWD3Y16vs6F4VPSi EDQjQQA2kYC1zL0rlAys bjogbGVmdDsgdmVydGlj WCcgSYbfC159WXXjhHbz Ur1EPli6N7YwWlr0 WDMplUlhWL6bsQJySCzs Qv8trYwfwTdaRG8sECIf pviyr211IgQom2tbKYXq wQEhUFjzKOX6E25n x1C8NGGfUHZmREO3wPR2 uJ8dcYbdesufqPVloQhc fzZjrTbtHWjpCSczL798 IHRvcDsnPlBheWVy OjwvdGQ+BF13jk42U9Zt YjdtIxo7NTNxMRU7dDM7 sF9oJGQcNXmjz2H9mTX8 U4BuqjRkrv3mk7dd YXBz (more content not included)... Normal [facility] Consent for Treatmenton 10-18 Consent for Treatment [id number] #1.00CD:127 Normal [facility] Discharge Instructionson Discharge Instructions [id number] 6#1.00CD:127 Normal [facility] ED Clinical Summaryon 2022 ED Clinical Summary [place] [id number] ED Clinical Summary Person Information Name: COSMO HENDRIX [place] Age: 27 Years : 1995 Sex: Female Language: Filipino PCP: Yahir Yu MD Marital Status: Phone: [phone] Visit Id: Visit Reason: Rash; BODY COVERED IN HIVES Speciality: Acuity: 4 Enc Type: Emergency Med Service: Emergency Arrival: 11/06/2022 12:50:42 Discharge: 11/06/2022 13:22:16 LOS: 000 00:32 Checkin: 11/06/2022 12:50:42 Checkout: 11/06/2022 13:22:16 Dispo Type: Home (Routine DC) EVENTS: Event Name Event Status Request Date/Time Start Date/Time Complete Date/Time Arrive Complete 11/06/2022 12:50:42 11/06/2022 12:50:42 11/06/2022 12:50:42 Document Home Meds Request 11/06/2022 12:50:42 Triage Complete 11/06/2022 12:50:42 11/06/2022 13:00:01 11/06/2022 13:00:01 Bed Assign Complete 11/06/2022 12:54:53 11/06/2022 12:54:53 11/06/2022 12:54:53 Dr Exam Complete 11/06/2022 12:54:53 11/06/2022 12:55:49 11/06/2022 12:55:49 RN Exam Complete 11/06/2022 12:54:54 11/06/2022 13:02:27 11/06/2022 13:02:27 Registration Complete 11/06/2022 12:55:49 11/06/2022 12:56:18 11/06/2022 12:56:18 Reg Complete Request 11/06/2022 12:56:18 Reg Bed Request Complete 11/06/2022 12:56:18 11/06/2022 12:56:18 11/06/2022 12:56:18 Dr Exam Complete 11/06/2022 13:00:22 11/06/2022 13:00:22 11/06/2022 13:00:22 Registration Request 11/06/2022 13:00:22 Meds Admin Complete 11/06/2022 13:12:06 11/06/2022 13:18:52 Discharge Complete 11/06/2022 13:12:34 11/06/2022 13:22:22 11/06/2022 13:22:22 Transfer Complete 11/06/2022 13:22:22 11/06/2022 13:22:22 11/06/2022 13:22:22 ADDRESS: [facility] [address] [facility] [phone] PHYS DOC NOTES: MEDICAL INFORMATION: Prescriptions Given: Medications to Continue with No Changes Other Medications ondansetron (Zofran ODT 4 mg Tab-Dis) 1 Tablets By Mouth every 8 hours as needed Nausea/Vomiting. Refills: 0. triamcinolone topical (triamcinolone Top 0.1% Crm 15 gram) 1 Application Topical 3 times a day. Refills: 0. PATIENT EDUCATION INFORMATION: Instructions: Hives, [id number] Follow up: With: Address: When: Yahir Yu MD, FAM, MED [address] [place] [id number] [phone] In 3 days 11/09/2022 DIAGNOSIS: 1:Rash of body Normal [facility] ED Note-Physicianon 11-06-19 ED Note-Physician Basic Information Time Seen: Radha Buckley PA-C 11/06/2022 12:55 Chief Complaint States has had hives since all over body. No respiratory distress. States benadryl has not been working. Was prescribed steroids but did not take them correctly. History of Present Illness 27-year-old female presents with hives and random spots of her body for the past month. She was here 3 weeks ago for the same issue and was prescribed famotidine and Medrol Dosepak, but she only took the first 6 pills or so of the Medrol Dosepak. She has an appointment scheduled this week with her family doctor. Denies new environmental exposures or food intake. No animals at home. Denies fever, difficulty swallowing, shortness of breath or chest pain Review of Systems Review of systems negative unless otherwise stated in HPI Physical Exam Vitals & Measurements T: 36.7 ?C(Oral) HR: 90(Peripheral) RR: 16 BP: 117/73 SpO2: 96% HT: 167 cm WT: 95.4 kg BMI: 34.21 GENERAL: ALERT, NO ACUTE DISTRESS, talking in full and complete sentences SKIN: WARM, DRY, INTACT; NO CYANOSIS, NO RASH HEAD: NORMOCEPHALIC, ATRAUMATIC EYE: PERRL, EOMI, NORMAL CONJUNCTIVA, NO DISCHARGE NOSE: NARES PATENT MOUTH: ORAL MUCOSA MOIST THROAT: NO STRIDOR NECK: SUPPLE, TRACHEA MIDLINE, FROM RESPIRATORY: NON-LABORED RESPIRATIONS EXTREMITIES: FROM X 4 NEUROLOGICAL: A&OX3 PSYCHIATRIC: COOPERATIVE, APPROPRIATE MOOD AND AFFECT Medical Decision Making Medicated with Decadron and instructed to take Claritin or Zyrtec [id number] and keep her appointment with the family doctor this week. No evidence of respiratory distress. Afebrile, not tachycardic, tolerating p.o. and ambulating at baseline and hemodynamically stable to be discharged home. Answered all questions. Patient in agreement with treatment. Assessment/Plan 1. Rash of body (R21: Rash and other nonspecific skin eruption) Orders: dexamethasone, 10 mg = 2.5 mL, Injection, Oral, Once, Stop date 11/06/22 13:11:00 EST, STAT, Start date 11/06/22 13:11:00 EST, 11/06/22 13:11:00 EST Disposition Plan Patient Discharge Condition Stable Discharge Disposition Home Discharge Prescription List Prescriptions No active prescription medications Follow-up With When Contact Information Yahir Yu MD, FAM, MED In 3 days 11/09/[address] [phone] Additional Instructions: Patient Education Hives, [id number] Attestation This visit was performed by both the physician and an APC. I performed all aspects of the MDM as documented. Problem List/Past Medical History Ongoing Bipolar disorder, mixed Historical No qualifying data Medications Inpatient dexamethasone 4 mg/mL Inj 1 mL, 10 mg= 2.5 mL, Oral, Once Home triamcinolone Top 0.1% Crm 15 gram, 1 tyler, Topical, TID Zofran ODT 4 mg Tab-Dis, 4 mg= 1 tab(s), Oral, q8hr, PRN Allergies No Known Allergies Social History Alcohol - Denies Alcohol Use, 11/04/2021 Current, 02/05/2022 Substance Abuse - Denies Substance Abuse, 11/04/2021 Current, 02/05/2022 Tobacco - Denies Tobacco Use, 11/04/2021 Never (less than 100 in lifetime) Tobacco Use:., 02/05/2022 Lab Results No qualifying data available. Diagnostic Results No qualifying data available. Normal [facility] Comment on above: Result Comment: Elec tronically Signed By: Ina SON, Radha Brantley\.br\Date and Time Signed: 11/06/22 13:15 EST\.br\Electronically Co-Signed By: Kian Rodriguez DO\.br\Date and Time Co-Signed: 11/06/22 13:21 EST ED Patient Education Noteon 11-06-2022 ED Patient Education Note Dermatology Hives Hives are itchy, red, swollen areas on your skin. Hives can show up on any part of your body. Hives often fade within 24 hours (acute hives). New hives can show up after old ones fade. This can go on for many days or weeks (chronic hives). Hives do not spread from person to person (are not contagious). Hives are caused by your body's response to something that you are allergic to (allergen). These are sometimes called triggers. You can get hives right after being around a trigger, or hours later. What are the causes? ? Allergies to foods. ? Insect bites or stings. ? Pollen. ? Pets. ? Latex. ? Chemicals. ? Spending time in sunlight, heat, or cold. ? Exercise. ? Stress. ? Some medicines. ? Viruses. This includes the common cold. ? Infections caused by germs (bacteria). ? Allergy shots. ? Blood transfusions. Sometimes, the cause is not known. What increases the risk? ? Being a woman. ? Being allergic to foods such as: ? [place] fruits. ? Milk. ? Eggs. ? Peanuts. ? Tree nuts. ? Shellfish. ? Being allergic to: ? Medicines. ? Latex. ? Insects. ? Animals. ? Pollen. What are the signs or symptoms? ? Raised, itchy, red or white bumps or patches on your skin. These areas may: ? Get large and swollen. ? Change in shape and location. ? Stand alone or connect to each other over a large area of skin. ? Sting or hurt. ? Turn white when pressed in the center (dylan). In very bad cases, your hands, feet, and face may also get swollen. This may happen if hives start deeper in your skin. How is this treated? Treatment for this condition depends on your symptoms. Treatment may include: ? Using cool, wet cloths (cool compresses) or taking cool showers to stop the itching. ? Medicines that help: ? Relieve itching (antihistamines). ? Reduce swelling (corticosteroids). ? Treat infection (antibiotics). ? A medicine (omalizumab) that is given as a shot (injection). Your doctor may prescribe this if you have hives that do not get better even after other treatments. ? In very bad cases, you may need a shot of a medicine called epinephrineto prevent a life-threatening allergic reaction (anaphylaxis). Follow these instructions at home: Medicines ? Take or apply arxx-gtm-urivebr and prescription medicines only as told by your doctor. ? If you were prescribed an antibiotic medicine, use it as told by your doctor. Do not stop using it even if you start to feel better. Skin care ? Apply cool, wet cloths to the hives. ? Do not scratch your skin. Do not rub your skin. General instructions ? Do not take hot showers or baths. This can make itching worse. ? Do not wear tight clothes. ? Use sunscreen and wear clothes that cover your skin when you are outside. ? Avoid any triggers that cause your hives. Keep a journal to help track what causes your hives. Write down: ? What medicines you take. ? What you eat and drink. ? What products you use on your skin. ? Keep all follow-up visits as told by your doctor. This is important. Contact a doctor if: ? Your symptoms are not better with medicine. ? Your joints hurt or are swollen. Get help right away if: ? You have a fever. ? You have pain in your belly (abdomen). ? Your tongue or lips are swollen. ? Your eyelids are swollen. ? Your chest or throat feels tight. ? You have trouble breathing or swallowing. These symptoms may be an emergency. Do not wait to see if the symptoms will go away. Get medical help right away. Call your local emergency services (911 in the [place] Do not drive yourself to the hospital. Summary ? Hives are itchy, red, swollen areas on your skin. ? Treatment for this condition depends on your symptoms. ? Avoid things that cause your hives. Keep a journal to help track what causes your hives. ? Take and apply uhil-lgh-ugjxyvp and prescription medicines only as told by your doctor. ? Keep all follow-up visits as told by your doctor. This is important. This information is not intended to replace advice given to you by your health care provider. Make sure you discuss any questions you have with your health care provider. Document Released: 07/12/2009 Document Revised: 04/18/2019 Document Reviewed: 04/18/2019 Elsevier Patient Education ? 2020 [employer]. [facility] ED Patient Summaryon 023 ED Patient Summary [address] [address] Patient Discharge Instructions Person Information Name: COSMO HENDRIX Age: 27 Years Arrival Date: 11/06/2022 12:50:42 Discharge Diagnosis: 1:Rash of body Primary Care Physician: Yahir Yu MD Provider Information Primary Provider: Kian Rodriguez DO [employer] Operator:None The exam and treatment you received in the Emergency Department were for an urgent problem and are not intended as complete care. It is important that you follow up with a doctor, nurse practitioner, or physician?s nursing home assistant for ongoing care. If your symptoms become worse or you do not improve as expected and you are unable to reach your usual health care provider, you should return to the Emergency Department. We are available 24 hours a day. COSMO HENDRIX has been given the following list of patient education materials, prescriptions and follow-up instructions: Follow-up Instructions: With: Address: When: Yahir Yu MD, [address] [address] [phone] In 3 days 11/09/2022 In the event that this physician does not participate in your insurance network, please consult with your insurance company to find a nearby participating provider. Patient Education Materials: Hives, Ohfd-qy-Gday A MESSAGE TO ALL PATIENTS REGARDING OPIOIDS PRESCRIPTION OPIOIDS: WHAT YOU NEED TO KNOW Prescription opioids can be used to help relieve ractgyzf-xs-hfimue pain and are often prescribed following a surgery or injury, or for certain health conditions. These medications can be an important part of the treatment but also come with serious risks. It is important to work with your healthcare provider to make sure you are getting the safest, most effective care. WHAT ARE THE RISKS AND SIDE EFFECTS OF OPIOID USE? Prescription opioids carry serious risks of addiction and overdose, especially with prolonged use. An opioid overdose, often marked by slowed breathing, can cause sudden . The use of prescription opioids can have a number of side effects as well, even when taken as directed: ? Tolerance?meaning you might need to take more of the medication for the same pain relief ? Physical dependence?meaning you have symptoms of withdrawal when a medication is stopped ? Increased sensitivity to pain ? Constipation ? Nausea, vomiting, and dry mouth ? Sleepiness and dizziness ? Confusion ? Depression ? Low levels of testosterone that can result in lower sex drive, energy, and strength ? Itching and sweating RISKS ARE GREATER WITH: ? History of drug misuse, substance use disorder, or overdose ? Mental health conditions (such as depression or anxiety) ? Sleep apnea ? Older age (65 years and older) ? Avoid alcohol while taking prescription opioids. Also, unless specifically advised by your health care provider, medications to avoid include: ? Benzodiazepines (such as Xanax or Valium) ? Muscle relaxants (such as Soma or Flexeril) ? Hypnotics (such as Ambien or Lunesta) ? Other prescription opioids KNOW YOUR OPTIONS Talk to your health care provider about ways to manage your pain that don?t involve prescription opioids. Some of these options may actually work better and have fewer risks and side effects. Options may include: ? Pain relievers such as acetaminophen, ibuprofen, and naproxen ? Some medication that are also used for depression or seizures ? Physical therapy and exercise ? Cognitive behavioral therapy, a psychological, goal-directed approach, in which patients learn how to modify physical, behavioral, and emotional triggers of pain and stress. IF YOU ARE PRESCRIBED OPIOIDS FOR PAIN: ? Never take opioids in greater amounts or more often than prescribed. ? Follow up with your primary health care provider. o Work together to create a plan on how to manage your pain. o Talk about ways to help manage your pain that don?t involve prescription opioids. o Talk about any and all concerns and side effects. ? Help prevent misuse and abuse o Never sell or share prescription opioids. o Never use another person?s prescription opioids. ? Store prescription opioids in a secure place and out of reach of others (this may include visitors, children, friends, and family). ? Safely dispose of unused prescription opioids: Find your community drug take-back program or your pharmacy mail-back program, or flush them down the toilet, following guidance from the Food and Drug Administration (www.fda.gov/Drugs/R esourcesForYou). ? Visit www.cdc.gov/drugover dose to learn about the risks of opioids abuse and overdose. ? If you believe you may be struggling with addiction, tell your health care management coordinator and ask for guidance or call [facility]?S National Helpline at 0-924-835-HELP. v Source: [facility] and (more content not included)... [facility] ED Note-Physicianon 10-22-19 ED Note-Physician Basic Information Time Seen: Meaghan Erickson PA-C 10/17/2022 22:15 Chief Complaint Pt states hives all over since . Benadryl not helping. History of Present Illness This patient presents emergency department chief complaint of hives. She states that these have been present since . She was visiting at a relatives house. She was helping with some cleaning and laundry at the relatives house. She states she is not sure what she came in contact with, but she developed hives and they are still very bothersome. She has been taking Benadryl with very little relief. She denies any difficulty breathing. She denies any chest pain. Review of Systems Constitutional: Denies weight loss, fevers, chills, sweats, malaise Eyes: Denies visual changes, eye pain, double vision, scotomas, floaters ENT: Denies runny nose, epistaxis, sinus pain, ear pain, ringing in ears, tooth ache, sore throat, pain with swallowing Cardiovascular: Denies chest pain, shortness of breath, orthopnea, edema, palpitations, loss of consciousness, claudication Respiratory: Denies cough, sputum production, wheezing, hemoptysis, shortness of breath, dyspnea on exertion Gastrointestinal: Denies abdominal pain, unintentional weight loss, difficulty swallowing, indigestion, bloating, cramping, loss of appetite, nausea, vomiting, diarrhea, constipation, hematochezia, melena Genitourinary: Denies any incontinence of urine, dysuria, hematuria, nocturia, polyuria, hesitancy, frequency, urgency, burning Musculoskeletal: Denies joint pain, morning stiffness, joint swelling, decreased range of motion, crepitus Integumentary: + pruritus, rash Neurologic: Denies any changes in sight, smell, hearing, taste, seizures, headache, paresthesia, numbness, weakness, balance disturbance Psychiatric denies any depression, change in sleep patterns, anxiety, difficulty concentrating, paranoia, anhedonia, lack of energy, akanksha Hematologic/lymphati c: Denies any purpura, petechiae, excessive bleeding, bruising Physical Exam Vitals & Measurements T: 36.6 ?C(Oral) HR: 92(Peripheral) RR: 16 BP: 107/69 SpO2: 96% HT: 167 cm WT: 95.4 kg BMI: 34.21 Vital Signs reviewed and noted. General: Alert, no acute distress, patient resting comfortably Skin: warm, intact, no pallor noted . Diffuse urticaria noted about the anterior and posterior trunk, all extremities Head: Normocephalic, atraumatic Eye: Normal conjunctiva Cardiac: Regular rate and rhythm Respiratory: Clear to auscultation Musculoskeletal: No deformity, full ROM. Neurological: alert and oriented, normal sensory and motor observed. Psychiatric: Cooperative Medical Decision Making Urticaria, unknown etiology Assessment/Plan 1. Urticaria (L50.9: Urticaria, unspecified) Orders: famotidine, 40 mg = 2 tab(s), Tab, Oral, Once, Stop date 10/17/22 22:26:00 EST, STAT, Start date 10/17/22 22:26:00 EST, 10/17/22 22:26:00 EST methylPREDNISolone, = 1 packet(s), Oral, As Directed, as directed on package labeling, X 6 day(s), # 21 tab(s), Refills(s) 0, Pharmacy: [facility] #[id number], 167, cm, 10/17/22 21:44:00 EST, Height/Length Dosing, 95.4, kg, 10/17/22 21:44:00 EST, Weight Dosing predniSONE, 60 mg = 3 tab(s), Tab, Oral, Once, Stop date 10/17/22 22:26:00 EST, STAT, Start date 10/17/22 22:26:00 EST, 10/17/22 22:26:00 EST Patient was interviewed and examined. The patient was medicated here in the department with prednisone 60 mg orally, and famotidine 40 mg orally. The patient already has been taking diphenhydramine regularly at home. I have discussed with the patient the discharge diagnosis, plan of care, home-going prescription. I stressed the need for close follow-up with her primary care physician. Patient will be discharged home in stable condition. She is to return to the emergency department for any further problems or concerns. Medications Administered Given Pepcid 20 mg Tab, 40 mg, Oral predniSONE 20 mg Tab, 60 mg, Oral Disposition Plan Patient Discharge Condition Stable Discharge Disposition Home Discharge Prescription List Prescriptions Medrol 4 mg Tab, 1 packet(s), Oral, As Directed Follow-up With When Contact Information DANIELA MARIE In 3 days 10/20/2022 EST [address] [place], [place] [address] (1) Additional Instructions: Patient Education Hives, Havn-zm-Emuw Problem List/Past Medical History Ongoing Bipolar disorder, mixed Historical No qualifying data Medications Inpatient No active inpatient medications Home Medrol 4 mg Tab, 1 packet(s), Oral, As Directed triamcinolone Top 0.1% Crm 15 gram, 1 tyler, Topical, TID Zofran ODT 4 mg Tab-Dis, 4 mg= 1 tab(s), Oral, q8hr, PRN Allergies No Known Allergies Social History Alcohol - Denies Alcohol Use, 11/04/2021 Current, 02/05/2022 Substance Abuse - Denies Substance Abuse, 11/04/2021 Current, 02/05/2022 Tobacco - Denies Tobacco Use, 11/04/2021 Never (less than 100 in lifetime) Tobacco (more content not included)... [facility] Comment on above: Result Comment: Elec tronically Signed By: Meaghan Erickson PA-C\.br\Date and Time Signed: 10/18/22 01:49 EST\.br\Electronically Co-Signed By: Jhonatan Lockhart DO\.br\Date and Time Co-Signed: 10/22/22 20:45 EST Coding Summary.on 10-21-2022 Coding Summary. [id number] [id number]+PGhlYWQ+PE1FV XSqE60tyHSaoE6VX5rJT U5OWSHJGJDQDA7UDG7nx UY8PTuaB9MqklWe LhiknENdGL59ZLf2SRO1 vGewEItczD6xdEBkK4i4 UoYqMN37nI78RWokUVLe ObH5KrRbtmxdtHHo A4maHyIklLKwFuu+PHRh YmxlIHdpZHRoPScxMDAl QnKumFyaWA4tJq6yNHYy LWNvbGxhcHNlOiBj l9reQJReGZadVB7tfYuw B4ZfiCX6LCZdl6n2Mh92 dHI+KMUtQCA4gKhgBNyu d015JkJvv8ouCVN4 wXWvPZnjXUA4E89oc8Y5 BVIcNQDrTBY4aKC7wV7z fGwymgwvX4HftYRyVlH2 BYJ7wEIllF6wiJhv jazghY6sXxs+U50JYS9A JQBRSF9GNyf0E8XtQjha dHI+MC66IHKtRD12tGCq uEVdg1dboJh7VoHn PCInFOQ1cKwjYZxlx0Lc JSCfU96twIEab6E6ARRt fIsakDRfAgAedZW2zN8a WQcfbarce0aoxcwd Zynuf8caho37rZ38P93g YXvxUDHhEWB2NUJoZBRx hUqkcq5xtS7kTv7+IDxj l9zek7jloMp6XhFv NSVoaiHxgEttZWH0s7Ni Gx62X0TeuEnul9GmVow3 jj93bIJgb6Y7tOG5IPbe YGNuuS2oBJjqMfM7 CCDcXsHhiQ45lBQpJLxi Sy7cvCfboOvpQT0yZMKo njtnTOUewO4yFYPmvHXf dRcjOR0hXRCmwycr y209VnKfDEM3DQIqiUJu V3OrqM6aUcXcQLOsVAVx S5JsdIVyTTqpE102IHiz AtJ6DZKucgKxU8Yt ZSPbbGpbMxV3a3Q5Tf5S m5BxmzfpBUF0ALeoOTXj VjQ4QxPvQbC6B1QySrl6 JRZotFwzAC3gH7Tp UXFileswqisucZT7JJYt OULlpH46hCKrCVksGc8e d3M2d289ZMZuNXItbL78 Qi9rvQpaKZWcmWOE tF1hhmqio8xeuglvIiZm ASTwVQb7PCt3WFPjlGck ZoIgQBP7ZtF6LKG9iRLh rP7glXlrcyegeW8s Oyc+X88nqQ2mEGN7GAS0 lkqiZOYlnvNmWM14RV71 R7FmLinnfSLgwPX+PGRp aaIifPznDZ3bUqKl l8xxq2UbOHgiN8GbEAGb GTlvDpb3WNZjNEU4wHN9 qP5kOYKwYRflv7S3vUX2 T6NosgFuro8mk6vb VUTmIVwhW63rzPNyq3S2 PIEzyIQ8WMKieWiaGxLy jN95Knz+CVXphDcam3Uh Rxbre6wlz4rreJv8 IjMwJSIgdmFsaWduPSJ0 b2RuVz07T98fLQbgDUJl ZHJcIKIhGVOpcDvhun3o bQ6mTr3+PGNvbCB3 rZM6cO4iJYYxSxT7IZtx D624FbGqeYBvWbjzc0sn r2vtoEp9FtRpKARphmLn pGwtGZU4o1UiBt29 W00jCMyqLHPlWUSxIQBk NKIxzMqerv4otD1zKp8+ HL1eb9nehh94oT59uAX+ KSCyAFU4yMcpYEwd RSSwhJ5kGJtlGuJ1CLVx DhZimD24lIIcEGwvPk8o gBioaRnuYX3aNIRpsanv b048PiZns1pcMFCu jZIiJPwmJIN1T96sq9K3 XZJeRFWlVUI9qNW3xM5j bGlnbjogbGVmdDsgdmVy tBfeQPczKPvkZ404 IHRvcDsnPlBhdGllbnQg LjJuYWu2H0VpNhq3IBNi wSugNQ1mvFRaKLmpPq0g lKfxnTcpJS5sANDe zwinz744XxQzd7hoKCMm zZNyCRlcXCP8E15hd5U6 HUBcGAKaIVM0uZC6zA5e bGlnbjogbGVmdDsg gqOykUrxKHonFLutE731 IHRvcDsnPkJpcnRoIERh tPY0LT56SF79qJYor7N5 hOH9C5HyTQDszscy jtqmcTQ1LJWnQESsdV17 Hh1cgNrwQy2rVDSvNEE7 RFCsrKFhF1IzeD2lMoDi WIFcCCQyM4UikFNl JIxcU948QQjlWjN8FPRw kqZgZ8SsDSMxxHlvEbC0 q3T8Ke0WF8F5XU68EL13 lANwr7Z0uFA7R2Gj BXPbzewtiicykWJ4EXNj ANXsbU71Up4aeHvcRq0p EKVwRZM1HAUkbIAvG4Nr qR7kFhKeWEKcYVDq V7QmeMVdBIamC560AGbp RkN6JMJcjtCvE3JpBUPt qJjvQmD8l9N5Lg9NGHo1 SB51SE48iLSzl0T8 pER3R0XyMUUwzwotxyea wCY2WAKeSVYjcE79Va6v jOkuRy3hYLCwLQI2VDHx uZIeG9CxkL8gLiRs DPWpXIUeC5LfqUZpPEbz L494LItxMtS5QTHawwEm S7TmPJDhaUooQcL1h2B6 Rb5DJHJtJX32TPD7 kRQ3AY23HO10Q2RzFepy dGFibGU+PHRhYmxlIHdp ZHRoPScxMDAlJyBzdHls KO8aAv3gLRDqTXXw dJvzuUPzPlFsp0hrXERi YScxUP5dxEzwU5IgcGN8 LSFvc1q0Me47T21qR3Qm dXA+OVZpkDO2hOX7 eS2lCnXdGdS0XWqyJ697 EiVuiOYzIsrfk2hsn8hw rTh7ZwK1RWPkhtWizCet CXZ6n7OaFs46L20h IHdpZHRoPSIxNSUiIHZh xJtqzh9uqN2dOt7+PGNv dXO6zMD7yK7uBaIdDhN3 UDqoX845VdKtqIEw Qadls1bmw6zkgSu7KnKl FEJcotWjnFmxUQY7o3Ce Dw26G9DtkOdor5UiYgt0 zk55nTClk5A6xBA1 I4AeJSUzdkmqfNVfxDfw SZ9dNZBfacyaXEYmkL7k QXCoA3n6PaNzNfU6UKvd U2OjlmE7SHLjpWMu IHzbHGK5G84yr2G1MZRm YISaHNV8bEK3xM6dgUgk bjogbGVmdDsgdmVydGlj JRbdLSftK745KKTb oTpwMSNvkG0kGFSeaVMj vEsxCG0rMHSwyrmuBqlG Ve1UNypaQ3pNBVWUFVEH BH92KQ59wGCmr1U9 gTB0W5NxZNIludaqdxaw xKZ1JXPxBCXwbQ28bGOn KBjfRf2kc7Q1n892ZKGo VUWigM36Xt8elYra LFPipGCAoF0ficfuf3ig nakwGuUdEUCnTXj2VEn8 WSIphFmeKrLoGWC7EkD9 SOD9rRMunF4tjZiv qslmsC8zJsx+MDkvMDUv STu9HMdiiBH+PHRkIHN0 qDlcIUefVSKpyQ9tCCIt L6s2UcKiFfG4UKni I6SzKZQleuruJs56zQ7l LhZjMsY3XTyfU3TakgA0 BYVcfFUqOQhmBIR5W07u m3Z8KKYbZFUnJDP1 cED4pZ6wnUsafqukjZKf dDsgdmVydGljYWwtYWxp J532JLLerZfgAmD8CKqo YNXuGD00SQ60sKBa y9Y5jVY0R1CdDCDgqadd qccawOH3QDMhYUAxhW99 lBXtFJvsUk3vk8Y8k569 PJYvTSXlkJ59Ed2h yFtbXZSctSUHwL5rinjz x9joewljYcHsLDMcZUo9 JAg5AXKihSmtUcIyHFZ6 QuC7UOC1qXJylQ1h wJzxfgkaxP0oPqk+RmVt QKxoZX04IN43rZObb9L2 nVP7V9TjJAMyqmjypqcu cFH8TSKqUEOkjK24 uSUsIXjeGl3te3T2j978 PLAdNBFksY89Ga7daHho KMEogMTOjH8seabod6hx cjogIzAwMDAwMDt0 LSe1ZMJrpVxnUsWbXTI6 YzN6BRQ4uSSnqU8ppHmm gqamlR1hRrv+XL4ukcam cqM4PO58RY23T4Wg PjwvdGFibGU+PHRhYmxl IHdpZHRoPScxMDAlJyBz nLlsOM2dEu2vFRAfPVQm hXpfzFUeAnGjk5ic OGGkRDkrSQ6qlVklY9Mj gXC3LPMdj9b3Bu60N49a H3HrgAN+RKOihAW6nNO3 mU7lAzPtNyO1OHbq Q187SiBgwXOzDcpww4bj d9wgsEx5ZbKaUEMvlzXt uSubJMC3q6EuOv77K83f IHdpZHRoPSIyMCUi ZCCqpLccnr8kfJ4uKi4+ PDRwyGM1bDZ3zI5jHkTp McB5COufT774YhIhuVLb NybeU99iU0TcrPZ+ YXTgVrf3SZPggOkvZI8g xNMvTEejGe0qWLH0VuWr ImLpLCqcA1SkDQGvlerm msqlhOO0WZXsMDYp oU40Cu7usOuaOu0sUJNf VOD0HXTjnRUsI2XnvM0l CxVdKCKqRCFzY5CbrXDf KAlmJ903EFcvHoO6 BYTnosGeE7XfDHCpjEqj CfJ6d5Z2Sf8QuCmdtQQk FU8nAxTtHUw1L1TmLxb4 TRRebKjnXH2ttZUw XTlfKk3qpTiynNhrTY3h RVBwvlwno772HrGty2as MVHvyNFwZOxaLWL2C24b w4S3GHXtDVFkJVF6 pDW2pF1zwNeiuxcnsCGu dDsgdmVydGljYWwtYWxp L714VSMuoIanJaCKVbp2 B4NfNcz4YVUlpRpv UR7zjSIcSJpiIu4unGah tAenJC5cKYKugwvjr849 TtUbc9tnEDMelCAcHBye XRV6V66yu1J3ISTo VKLcALB5bKV5iH6omKhn bjogbGVmdDsgdmVydGlj MCfsKCexD776PISxvDzd Lt8XTts8C7TuYvz8 MUCdoRvxLA6urSJcRLct Zy7jmWzocEwrGW2nRFDd wjpoa616VsMtj1tgVSSp iOTcDBuvWGX8L85z i8V0WMCiLKHcVLS2vCY7 kC7bzDitokbxmBGbqSog miKsbNtyUXqhNCboQ511 IHRvcDsnPlBheWVy OjwvdGQ+UK93sa83Z8De MiisOxq3BQTnQNR0mUG9 zE4yQPHwXVczf4I6cXD0 Q4PiaqXmto5zy9wl YXBz (more content not included)... [facility] Discharge Instructionson Discharge Instructions [id number] [facility] ED Clinical Summaryon 2022 ED Clinical Summary [place] [id number] ED Clinical Summary Person Information Name: COSMO HENDRIX [facility] Age: 27 Years : 1995 Sex: Female Language: Filipino PCP: DANIELA MARIE MD Marital Status: Phone: [phone] Visit Id: Visit Reason: Rash; HIVES, Speciality: Acuity: 5 Enc Type: Emergency Med Service: Emergency Arrival: 10/17/2022 21:29:00 Discharge: 10/17/2022 22:34:04 LOS: 000 01:05 Checkin: 10/17/2022 21:29:00 Checkout: 10/17/2022 22:34:04 Dispo Type: Home (Routine DC) EVENTS: Event Name Event Status Request Date/Time Start Date/Time Complete Date/Time Arrive Complete 10/17/2022 21:29:00 10/17/2022 21:29:00 10/17/2022 21:29:00 Document Home Meds Request 10/17/2022 21:29:00 Triage Complete 10/17/2022 21:29:00 10/17/2022 21:44:41 10/17/2022 21:44:41 Registration Complete 10/17/2022 21:35:33 10/17/2022 21:35:33 10/17/2022 21:35:33 Reg Complete Request 10/17/2022 21:35:33 Reg Bed Request Complete 10/17/2022 21:35:33 10/17/2022 21:35:33 10/17/2022 21:35:33 Bed Assign Complete 10/17/2022 21:48:08 10/17/2022 21:48:08 10/17/2022 21:48:08 Dr Exam Complete 10/17/2022 21:48:08 10/17/2022 22:15:45 10/17/2022 22:15:45 RN Exam Complete 10/17/2022 21:48:08 10/17/2022 22:33:43 10/17/2022 22:33:43 Registration Request 10/17/2022 22:15:45 Dr Exam Complete 10/17/2022 22:15:58 10/17/2022 22:15:58 10/17/2022 22:15:58 Meds Admin Complete 10/17/2022 22:27:26 10/17/2022 22:31:22 Discharge Complete 10/17/2022 22:28:45 10/17/2022 22:34:09 10/17/2022 22:34:09 Transfer Complete 10/17/2022 22:34:09 10/17/2022 22:34:09 10/17/2022 22:34:09 ADDRESS: [facility] [address] [facility] [id number] PHYS DOC NOTES: MEDICAL INFORMATION: Prescriptions Given: New Medications [id number], [address] [place] [address], [place] [id number], [phone] methylPREDNISolone (Medrol 4 mg Tab) 1 Packets By Mouth As Directed for 6 Days. as directed on package labeling. Refills: 0. Medications to Continue with No Changes Other Medications ondansetron (Zofran ODT 4 mg Tab-Dis) 1 Tablets By Mouth every 8 hours as needed Nausea/Vomiting. Refills: 0. triamcinolone topical (triamcinolone Top 0.1% Crm 15 gram) 1 Application Topical 3 times a day. Refills: 0. PATIENT EDUCATION INFORMATION: Instructions: Hives, Wfsn-dy-Enif Follow up: With: Address: When: DANIELA MARIE [address] [place], [place] [id number] Business (1) In 3 days 10/20/2022 DIAGNOSIS: 1:Urticaria [facility] ED Patient Education Noteon 10-18-2022 ED Patient Education Note Dermatology Hives Hives are itchy, red, swollen areas on your skin. Hives can show up on any part of your body. Hives often fade within 24 hours (acute hives). New hives can show up after old ones fade. This can go on for many days or weeks (chronic hives). Hives do not spread from person to person (are not contagious). Hives are caused by your body's response to something that you are allergic to (allergen). These are sometimes called triggers. You can get hives right after being around a trigger, or hours later. What are the causes? ? Allergies to foods. ? Insect bites or stings. ? Pollen. ? Pets. ? Latex. ? Chemicals. ? Spending time in sunlight, heat, or cold. ? Exercise. ? Stress. ? Some medicines. ? Viruses. This includes the common cold. ? Infections caused by germs (bacteria). ? Allergy shots. ? Blood transfusions. Sometimes, the cause is not known. What increases the risk? ? Being a woman. ? Being allergic to foods such as: ? [place] fruits. ? Milk. ? Eggs. ? Peanuts. ? Tree nuts. ? Shellfish. ? Being allergic to: ? Medicines. ? Latex. ? Insects. ? Animals. ? Pollen. What are the signs or symptoms? ? Raised, itchy, red or white bumps or patches on your skin. These areas may: ? Get large and swollen. ? Change in shape and location. ? Stand alone or connect to each other over a large area of skin. ? Sting or hurt. ? Turn white when pressed in the center (dlyan). In very bad cases, your hands, feet, and face may also get swollen. This may happen if hives start deeper in your skin. How is this treated? Treatment for this condition depends on your symptoms. Treatment may include: ? Using cool, wet cloths (cool compresses) or taking cool showers to stop the itching. ? Medicines that help: ? Relieve itching (antihistamines). ? Reduce swelling (corticosteroids). ? Treat infection (antibiotics). ? A medicine (omalizumab) that is given as a shot (injection). Your doctor may prescribe this if you have hives that do not get better even after other treatments. ? In very bad cases, you may need a shot of a medicine called epinephrineto prevent a life-threatening allergic reaction (anaphylaxis). Follow these instructions at home: Medicines ? Take or apply lgpw-psu-kxkywyt and prescription medicines only as told by your doctor. ? If you were prescribed an antibiotic medicine, use it as told by your doctor. Do not stop using it even if you start to feel better. Skin care ? Apply cool, wet cloths to the hives. ? Do not scratch your skin. Do not rub your skin. General instructions ? Do not take hot showers or baths. This can make itching worse. ? Do not wear tight clothes. ? Use sunscreen and wear clothes that cover your skin when you are outside. ? Avoid any triggers that cause your hives. Keep a journal to help track what causes your hives. Write down: ? What medicines you take. ? What you eat and drink. ? What products you use on your skin. ? Keep all follow-up visits as told by your doctor. This is important. Contact a doctor if: ? Your symptoms are not better with medicine. ? Your joints hurt or are swollen. Get help right away if: ? You have a fever. ? You have pain in your belly (abdomen). ? Your tongue or lips are swollen. ? Your eyelids are swollen. ? Your chest or throat feels tight. ? You have trouble breathing or swallowing. These symptoms may be an emergency. Do not wait to see if the symptoms will go away. Get medical help right away. Call your local emergency services (911 in the [place] Do not drive yourself to the hospital. Summary ? Hives are itchy, red, swollen areas on your skin. ? Treatment for this condition depends on your symptoms. ? Avoid things that cause your hives. Keep a journal to help track what causes your hives. ? Take and apply shod-xaq[place] and prescription medicines only as told by your doctor. ? Keep all follow-up visits as told by your doctor. This is important. This information is not intended to replace advice given to you by your health care provider. Make sure you discuss any questions you have with your health care provider. Document Released: 07/12/2009 Document Revised: 04/18/2019 Document Reviewed: 04/18/2019 [employer] Patient Education ? 2019 [employer] [facility] ED Patient Summaryon 023 ED Patient Summary [address] [address] Patient Discharge Instructions Person Information Name: COSMO HENDRIX Age: 27 Years Arrival Date: 10/17/2022 21:29:00 Discharge Diagnosis: 1:Urticaria Primary Care Physician: DANIELA MARIE MD Provider Information Primary Provider: Jhonatan Lockhart DO [employer] Operator:None The exam and treatment you received in the Emergency Department were for an urgent problem and are not intended as complete care. It is important that you follow up with a doctor, nurse practitioner, or physician?s nursing home assistant for ongoing care. If your symptoms become worse or you do not improve as expected and you are unable to reach your usual health care provider, you should return to the Emergency Department. We are available 24 hours a day. COSMO HENDRIX has been given the following list of patient education materials, prescriptions and follow-up instructions: Follow-up Instructions: With: Address: When: DANIELA MARIE [address] [place] [id number] Business (1) In 3 days 10/20/2022 In the event that this physician does not participate in your insurance network, please consult with your insurance company to find a nearby participating provider. Patient Education Materials: Hives, Qqxj-jg-Gzbo A MESSAGE TO ALL PATIENTS REGARDING OPIOIDS PRESCRIPTION OPIOIDS: WHAT YOU NEED TO KNOW Prescription opioids can be used to help relieve vijdbgos-kp-zykvhd pain and are often prescribed following a surgery or injury, or for certain health conditions. These medications can be an important part of the treatment but also come with serious risks. It is important to work with your healthcare provider to make sure you are getting the safest, most effective care. WHAT ARE THE RISKS AND SIDE EFFECTS OF OPIOID USE? Prescription opioids carry serious risks of addiction and overdose, especially with prolonged use. An opioid overdose, often marked by slowed breathing, can cause sudden . The use of prescription opioids can have a number of side effects as well, even when taken as directed: ? Tolerance?meaning you might need to take more of the medication for the same pain relief ? Physical dependence?meaning you have symptoms of withdrawal when a medication is stopped ? Increased sensitivity to pain ? Constipation ? Nausea, vomiting, and dry mouth ? Sleepiness and dizziness ? Confusion ? Depression ? Low levels of testosterone that can result in lower sex drive, energy, and strength ? Itching and sweating RISKS ARE GREATER WITH: ? History of drug misuse, substance use disorder, or overdose ? Mental health conditions (such as depression or anxiety) ? Sleep apnea ? Older age (65 years and older) ? Avoid alcohol while taking prescription opioids. Also, unless specifically advised by your health care provider, medications to avoid include: ? Benzodiazepines (such as Xanax or Valium) ? Muscle relaxants (such as Soma or Flexeril) ? Hypnotics (such as Ambien or Lunesta) ? Other prescription opioids KNOW YOUR OPTIONS Talk to your health care provider about ways to manage your pain that don?t involve prescription opioids. Some of these options may actually work better and have fewer risks and side effects. Options may include: ? Pain relievers such as acetaminophen, ibuprofen, and naproxen ? Some medication that are also used for depression or seizures ? Physical therapy and exercise ? Cognitive behavioral therapy, a psychological, goal-directed approach, in which patients learn how to modify physical, behavioral, and emotional triggers of pain and stress. IF YOU ARE PRESCRIBED OPIOIDS FOR PAIN: ? Never take opioids in greater amounts or more often than prescribed. ? Follow up with your primary health care provider. o Work together to create a plan on how to manage your pain. o Talk about ways to help manage your pain that don?t involve prescription opioids. o Talk about any and all concerns and side effects. ? Help prevent misuse and abuse o Never sell or share prescription opioids. o Never use another person?s prescription opioids. ? Store prescription opioids in a secure place and out of reach of others (this may include visitors, children, friends, and family). ? Safely dispose of unused prescription opioids: Find your community drug take-back program or your pharmacy mail-back program, or flush them down the toilet, following guidance from the Food and Drug Administration (www.fda.gov/Drugs/R esourcesForYou). ? Visit www.cdc.gov/drugover dose to learn about the risks of opioids abuse and overdose. ? If you believe you may be struggling with addiction, tell your health care management coordinator and ask for guidance or call SAMHSA?S National Helpline at 7-539-127-HELP. v Source: Department of Health and Human Serv (more content not included)... [facility] Consent for Treatmenton Consent for Treatment [phone] 30 [id number] #1.00CD:127 [facility] Coding Summary.on 10-07-2022 Coding Summary. CD:[id number] Gh0bWw+PGhlYWQ+PE1FV PUuG03xgYEjoW5YJ5sHC H3PXZJUEWSZVF1JDM1jt TA9SJueD5LxctJf YhhkuMQoUA68UUw4NYI5 fBymBKfefR9ygUPqN0d1 CsBvJV90iT06BQzdGMHx WqJ6XsDcezdxrDMt V2wjPmQcmPVtFjc+PHRh YmxlIHdpZHRoPScxMDAl HdOfvRtiJT4eUs2kXVPb LWNvbGxhcHNlOiBj z3duAPRjUYxhGR5dxKvt X1UakPT2TKZdr4i6Xq01 dHI+HFBuEYO9bCoiPLar f920TsKqj8odQQI8 kMTzMKbhTAF9D77mp7Q4 LHQeIFZuPAU9oLA3jO9j fTqywvwrF7OmcDOiJzS8 VPA6bVFasR8pwBcu xsgvnL0lFxv+L71NHI2T LXHYBA2RAva5V9XbWlhh dHI+TP39NYQoII04iUGw hMQux5dvcXu4JkMc EABfYIB3sTkhCGeci7Ze SNVmZ36quECvr9B0QRNh hNqykZScJwOutLR5kQ5y SUgzjvkwn1fxczoa Qohdr9vubv38nF35X59q BUjrCXBmKUH4CJGfBOSr hWvpfa7nsS1cSo8+IDxj k4max4xgaHl3UgUh LREeuyEhxQlkWXC6i3Xz Qo29B2UlkXgka4OmNwm4 ag46ePJwv6G5zCS3RJzu LFTbxQ0iPNzhGrY6 TSRiPuJvbD06rCBuZQsj Al2vaWhzqVdzWY5uLODl izgbVNQhuT6uBSIfcTDa iOhhXU8qUNDnldbj c538DkRdIHC7GWSyuYUx I7QlxY2rZnDbWQRwJTKr Q5CphZErCLkfY668KSqk EqT4LBEhebUnH3Nu GRBptYfdWkS6s4A1Wn6I i0MkypyoWVJ9HXcqGEQl MwUkQfLpSwU0O7NzDwo6 QGOtvKqdLW4jL2Wa GHJccmgbshichIC0FGAj EKWcpQ94mNFgPSkwFo4o i6G8c278ISDuIIVusN82 Kh2fmLioBUOspJPZ zM5ablpkd6ivvwgwBtIt HHNdYUk5NUt8YPXeyQit SkHgUXB1MxP3FMC8nRMy sU3xxWalenirjW5c Oyc+M48ttI9yAFF8ZCF5 ivjuAWOtgsTqWU96EA82 I6PuEkgamQSoyXT+PGRp onEreRksDL8bAeXq a8gkl8GhBMnuA1MzPKOy RJnpPdn0MUHzGKG3nMH3 kF5vJJAcVGrra8X9iTR4 F2AbzsStjs4bw2yc ZXSyXTrsH66rzXSjx1G5 XVIkpCW1TFWyfGjzTpXz bX62Nsp+GEMhqAewd0Gl Mkfhu1nwp7jrnZh6 IjMwJSIgdmFsaWduPSJ0 h6WoMg96Q06dJZhcRXXm MNXmYPJeHCYtgNanmq6m iX1cJf2+PGNvbCB3 xAC8lH9fOTDlNsJ0YLrr O874NkYxyXAcYbous3de d4vvoRg7MwWpQWHxhwXr oEknWUM9k9QpQx82 K25xXBvfXIYoQSXxSQQr HJMaeLtwkm8mlM5qRo3+ PX8rr1jstn30wH85rOR+ SAEmZPP7dJfgYKdu XCPwrY2zTFwoAcJ2XDDa NnTwmM34iWYjRMpbXw2o dEqlcQtoJX0eKKUksjsz s057ZzPrk9wxKRFh gBDoZCoiKCZ9H17fr5K9 GNZpPFFuMDU4qOH9wJ2s bGlnbjogbGVmdDsgdmVy sCskRUbbYHucA906 IHRvcDsnPlBhdGllbnQg EfZnQMy6U0HbWxx2FHGr kZmvWA5sePRxHRhrAd9q eKtogDxdJU8cOHGm igbqu032FzFgy2mwWAIf kMFkHAiuMET0F49in9D3 PJIxSPNhEJM1jZZ3rZ6i bGlnbjogbGVmdDsg nzEvjBdfPNlfEJmtC088 IHRvcDsnPkJpcnRoIERh pZP0BV02KA43hHHnf5M6 bDN3K3VkPFNcierk dpmefWG7HDZgYDPvlJ51 Ku8taNlvGs2gCCXeLFK8 VXDloHMkO2ItiF4jCdPq RSJtIKRmD1VkuHQx EGgoR429BKhiLfT9RDGp wgFoO7WhJLFogIicKsO6 a7R1Er1MW3D1TK07SZ24 rRQar5J2gBZ1F0Vn ASJlispzhgfyhCY1QLLb YUIjmR31Wo9mvOeoIw2a PLGoATH0ZLCkiZRzY3Lq zQ9pLsJwJOJoAJSb D6GhtMMqLQroO036NOov PfG8CZZshqLgR5YjBJPq zZyrHwM6w1W8Ot5DAAx2 RB55ES40aQTnp7W4 gMK4F8YmXJDegcufagzq oXP4WWSdEMHgqG34Ae0q xBlxKh1lTLDtTWW6JZFf fLMlM5HxhB4bKfWe HDRpYXVxT3JlrPYiJUid R729YDaiRcR2UAGxeiIk R8JsNNDtsRyfNxP9a2C5 Yq7DCUElXY53XSU4 sBE8EF33JV16T7NtPpso dGFibGU+PHRhYmxlIHdp ZHRoPScxMDAlJyBzdHls ZW9sMt0rOBKqSNOe lWvkpNDjVyChy2chAMYt UUikLP4gzBzwY1OeaQX8 LOKzk5k1Fy54D04bV5Ux dXA+SCDmdVZ8jAJ3 vO6tNkNvArK9PLktS815 UzTyhRMcIxxca1xno9cv vSy0GgY0PUMixmDsdBey XBP7a3CyOu48C46q IHdpZHRoPSIxNSUiIHZh kKxljz6mjZ0dUc7+PGNv rDN2qCJ6fW8tDqNjMqI5 DEqgX918UpMscJZc Thptn1kvt1vhtCi3GxKp UUVthaJzhFhyVWN1c5Gw Kt24R9RqiThvn5AmWcb2 hh20nBQik0X4sAC5 B0OcZZYrtvxnbGJepMdi AV5tSFXvpwzzVPFzsK7f OXNiG0o6OxDsXeW2HVxd P4TimtG5BFTlbSJd SCkdUNO4Q46it0X4LQXm UAXoSNB9iWD8pF7khZrk bjogbGVmdDsgdmVydGlj FCbzKOrjD440HPDk gYfgQBLplI1fDWVwlBLf qLtiZX9iFAUqchegSieY Fu8NKftkJ8iKIINMZMFY YT69VJ79jVQiq5T1 uHZ1Y3HdOIPzmhyhbkir aMU7SNGrVOZfhD65qCEh KTkdSt8ix0S7s975CYMw YJNxlE40Po6puRtu MGZuyLHXyU7cnbfys3zz foocYqKaOCKeCXr3QKw6 QCKrnMwoXdHwBVO8IrC4 JEJ3tLPdhM0rdWbw yelwdL5zLbx+MDkvMDUv DUq3QHubbUK+PHRkIHN0 fYnrWEwgNGOjcA0bEGIs E8e7LsXtByT1EHmb T6RwCPFcboteZi50xE4i DuRmKcM7RRnxZ0IkopV8 BJUlpMBhNAisQSF1Y06q k2M7AVRbCGLpJNP4 wPO0aI1rbLjreoxduZMd dDsgdmVydGljYWwtYWxp V361ISXvcAvjWnD5RBjv TNTkZP73YW25bAPi f3U8dFR0P2LoEMPuytfj mfdcqWT0HJSyZZQvtD91 eZNhRNuhNv0gm9G9c463 IQPmQNBtdM74Rs8m hPvwBOEdwMZTcS8grjis s1baatgaHsTzFQZoFPx6 ZIp5PAZbtAzxIkFgLTQ5 SnM9NWK9kNEtbN7j zHoeojwyoY7gLet+RmVt DMmbGU84GK61tVUxv0P0 mVU3W3PkGRVcoklthnqb xYW3PULyOWCrhE51 uBZzYLxhRl3gj0T2z087 MKJaMVZaiQ21Ql2hnHob RLFgmCELsA5lwghdm8ft cjogIzAwMDAwMDt0 DCr2BXXpjOdnDdAbPEJ2 DqX1KQC0lBGjlA8roDsx viuzqE6oSaj+FJ6gugom kxI1ZZ27HB68L2Ab PjwvdGFibGU+PHRhYmxl IHdpZHRoPScxMDAlJyBz vMumRY8fBf3wZCOkWPBr yGacjFFaRnVlv1qt IFLbEUdzDB9vuDxrY0Oa dFN9LKHbo1p3Tt49B48o O4MehSC+CZJmpAD5jGW4 zU0xSdGdQcF1RPkq V320NzAjoYZbYeuvc5dc v2pkoAp5SaUpSNFtlrAa nLrfRQP5g8BmVq67C89q IHdpZHRoPSIyMCUi ANJfrHaqgg6srX2qEj9+ CTAzyZH1iES7aO4xZmLz FuQ6JEhzN480ZkIraSJe WoeqT81eO3MtvAB+ OTGmMms0WECjeVdhJF7v oAShDImlHd8gRTG7IxEd AnKtMZmhQ7RdUMRhedey juamnSA3MDFjOAJq dC43On0qnDkhCp3eRPUs XNP6HILroYFsX0FitE2j AlPfYLWbVFBeJ7NjgHQn NOlhE457KKbcUcP2 WNXsfzRnS0TcTRVixYos OrS2h2Q0Wk4HyWscnZZi VB4sFrHqLCg9F2NvQgm6 IXXjhMpoNE6pmWCn VTuvAu9ukGukfJabCK4c XKPqmgecb511SmAkd6mc ACBaaJHgIPotZQA6V44w l1G2CWAiWLRaCQF3 xSZ0dG5xeDozmwwldTXq dDsgdmVydGljYWwtYWxp R396CGEjhMxtSnFMEdl5 X2LcCno5YKPubWfn HB0wxTKsITcmRv1tzIul fPtoWX6oGFGwzsiav767 ZtSoh6feGCOxbEVxOCfy ZAU4E11kn5H5VGDq HDIjXEI8eDX4aA1fgCdd bjogbGVmdDsgdmVydGlj ZXmfEMlsC532ZAFggGer Er8IWsw1E9RqXxv5 OQUtyLwgZX3gyXAkFZzt La3jmZnsxOgjWD6fLOGn xkfeg627JqRow6cmYVHr eGTyKJjwBCV5W49b u0L8DLSuOMWkSCS1yMF2 lC7gmDdkwwjujPKmbGws acZqmEhyYRlbJNjeX830 IHRvcDsnPlBheWVy OjwvdGQ+VZ84ec15C9Ij BehqVdl1ILKxSZE2sIN7 oZ6pFTYyLLcfz2H1iJY2 L4IqdmZujj0rt8od YXBz (more content not included)... [facility] Discharge Instructionson Discharge Instructions [id number]#1.00CD:127 [facility] ED Clinical Summaryon 2021 ED Clinical Summary [place] [address] ED Clinical Summary Person Information Name: COSMO HENDRIX [facility] Age: 27 Years : 1995 Sex: Female Language: Filipino PCP: DANIELA MARIE MD Marital Status: Phone: [phone] Visit Id: Visit Reason: Headache; Sinus Pain/Congestion; POS SINUS INFECTION Speciality: Acuity: 2 Enc Type: Emergency Med Service: Emergency Arrival: 10/05/2022 21:52:43 Discharge: 10/06/2022 00:20:00 LOS: 000 02:28 Checkin: 10/05/2022 21:52:43 Checkout: 10/06/2022 00:20:00 Dispo Type: Home (Routine DC) EVENTS: Event Name Event Status Request Date/Time Start Date/Time Complete Date/Time Arrive Complete 10/05/2022 21:52:43 10/05/2022 21:52:43 10/05/2022 21:52:43 Document Home Meds Request 10/05/2022 21:52:43 Triage Complete 10/05/2022 21:52:43 10/05/2022 22:26:48 10/05/2022 22:26:48 Bed Assign Complete 10/05/2022 22:27:31 10/05/2022 22:27:31 10/05/2022 22:27:31 Dr Exam Complete 10/05/2022 22:27:31 10/05/2022 22:39:49 10/05/2022 22:39:49 RN Exam Complete 10/05/2022 22:27:31 10/05/2022 23:30:16 10/05/2022 23:30:16 Registration Complete 10/05/2022 22:39:49 10/05/2022 23:06:40 10/05/2022 23:06:40 Dr Exam Complete 10/05/2022 22:44:34 10/05/2022 22:44:34 10/05/2022 22:44:34 Reg Complete Request 10/05/2022 23:06:40 Reg Bed Request Complete 10/05/2022 23:06:40 10/05/2022 23:06:40 10/05/2022 23:06:40 Discharge Complete 10/06/2022 00:03:18 10/06/2022 00:34:31 10/06/2022 00:34:31 Transfer Complete 10/06/2022 00:34:31 10/06/2022 00:34:31 10/06/2022 00:34:31 ADDRESS: [address] [place] [address] [address] [facility] [phone] [facility] DOC NOTES: MEDICAL INFORMATION: Prescriptions Given: Medications to Continue with No Changes Other Medications ondansetron (Zofran ODT 4 mg Tab-Dis) 1 Tablets By Mouth every 8 hours as needed Nausea/Vomiting. Refills: 0. triamcinolone topical (triamcinolone Top 0.1% Crm 15 gram) 1 Application Topical 3 times a day. Refills: 0. PATIENT EDUCATION INFORMATION: Instructions: Upper Respiratory Infection, Adult Follow up: With: Address: When: DANIELA MARIE [address] [place] [address] [place] [address] Business (1) In 3 days 10/09/2022 DIAGNOSIS: Upper respiratory infection [facility] ED Note-Nursingon 10-06-2022 ED Note-Nursing pt given d/c instructions and educated on importance of follow up. pt verbalized understanding of instructions and readiness for d/c. pt walked self ambulatory to waiting room in stable condition with her daughter [facility] ED Note-Physicianon 10-06-20 ED Note-Physician Basic Information Time Seen: Suleiman Modi PA-C 10/05/2022 22:39 Chief Complaint Chills, fever, cold sore, headache, sore gums, and head pressure since Tuesday. Feels as though she has a sinus infection. Pt states she has been urinating on self and vomiting mucus. History of Present Illness Patient is a 27-year-old female who presents ED complaining of subjective fever and chills, headache, sinus pressure, and increased mucus production for the last 4 days. Patient does report that she had an upper respiratory infection for the preceding week before the symptoms began, but this had begun to improve before she began to have the symptoms that she is presenting with now. Patient is concerned for a sinus infection. Patient states she does not have a thermometer at home so is uncertain if she is actually been running fever. Patient does state that her fever and chills have been improving since last 2 days. Patient states that she had 1 episode of nonbloody nonbilious emesis on Tuesday which was productive of sinus mucus. Patient denies any abdominal pain. Patient denies any nausea. Patient states she is otherwise been tolerating p.o. food and fluids. Patient states she is not been taking any medications for current symptoms. Family history: Reviewed and noncontributory Social history: Reviewed and noncontributory Review of Systems Full 10 system ROS performed. Pt denies symptoms except as noted above in the HPI. Physical Exam Vitals & Measurements T: 37 ?C(Oral) HR: 90(Peripheral) RR: 17 BP: 111/68 SpO2: 95% HT: 167 cm WT: 95.4 kg BMI: 34.21 General: Pt is in NAD, nontoxic appearing Skin: Pt skin is warm and dry, no rashes or lesions appreciated HEENT: Atraumatic, normocephalic. Clear sclera. PERRLA. Extraocular movements grossly intact. Patient tympanic membrane's nonerythematous, nonbulging, pearly hanson bilaterally. Patient oropharynx nonerythematous, without tonsillar enlargement or exudates. Uvula midline. Nasal congestion appreciated. Patient without any maxillary or frontal sinus tenderness to percussion. Pulmonary: Breathing normally, no respiratory distress, no retractions, lungs CTAB Cardiovascular: Regular rate and rhythm, no murmurs/gallops/rubs . Distal pulses palpable in upper and lower extremities bilaterally Gastrointestinal: +BSX4. Abdomen soft, nondistended, nontender. No peritoneal signs present. Musculoskeletal: Patient ambulate independently, moving all extremities Neurological: Patient alert and oriented Lymphatic: No lymphadenopathy appreciated. No peripheral edema appreciated Psychiatric: Pt is cooperative, communicative, appropriately reactive Medical Decision Making Patient presents ED for evaluation of upper respiratory symptoms including sinus pressure, headache, congestion, fever/chills. Differential diagnosis includes a pneumonia, URI, sinusitis, otitis media. Patient without any evidence for otitis media or pneumonia on physical exam. Sinusitis is possible diagnoses, however, patient sinus symptoms are not especially prominent on physical exam. Patient signed his symptoms have also been ongoing for only about 4 days, will shorten the 10 days which is required to consider antibiotic therapy for sinusitis. This was discussed with patient, who is agreeable for symptomatic treatment in the interim. Patient instructed to return to PCP with ongoing symptoms. Return precautions discussed with patient. Otherwise, patient instructed on symptomatic treatment for viral URI. Patient questions answered. Patient discharged home. Assessment/Plan Upper respiratory infection (J06.9: Acute upper respiratory infection, unspecified) Disposition Plan Patient Discharge Condition Stable Discharge Disposition To home Discharge Prescription List Prescriptions No active prescription medications Follow-up With When Contact Information ARISLOVE ALARCONA In 3 days 10/09/[address] [address]- [facility] (1) Additional Instructions: Patient Education Upper Respiratory Infection, Adult Attestation Patient seen and evaluated by the physician nursing home assistant. Attending physician was present in the emergency department and supervised care. This visit was performed by both the physician and an APC. I performed all aspects of the MDM as documented. This report was transcribed using voice recognition software. Every effort was made to ensure accuracy, however, inadvertently computerized foundation digger mistakes may be present. Appropriate healthcare PPE was used in evaluating this patient. The patient was placed in a mask. The healthcare provider was wearing mask, gloves, and utilizing proper hand hygiene. All equipment was properly cleansed Problem List/Past Medical History Ongoing Bipolar disorder, mixed Historical No qualifying data Medications Inpatient No active inpatient medications Home triamcinolone Top 0.1% Crm 15 gram, 1 tyler, Topical, TID Zofran ODT 4 mg Tab-Dis, 4 mg= 1 (more content not included)... [facility] Comment on above: Result Comment: Elec tronically Signed By: Suleiman Modi PA-C\.br\Date and Time Signed: 10/06/22 01:09 EST\.br\Electronically Co-Signed By: Jhonatan Lockhart DO\.br\Date and Time Co-Signed: 10/06/22 03:28 EST ED Patient Education Noteon 10-06-2022 ED Patient Education Note Infectious Disease Upper Respiratory Infection, Adult An upper respiratory infection (URI) is a common viral infection of the nose, throat, and upper air passages that lead to the lungs. The most common type of URI is the common cold. URIs usually get better on their own, without medical treatment. What are the causes? A URI is caused by a virus. You may catch a virus by: ? Breathing in droplets from an infected person's cough or sneeze. ? Touching something that has been exposed to the virus (contaminated) and then touching your mouth, nose, or eyes. What increases the risk? You are more likely to get a URI if: ? You are very young or very old. ? It is georgina or winter. ? You have close contact with others, such as at a daycare, school, or health care facility. ? You smoke. ? You have long-term (chronic) heart or lung disease. ? You have a weakened disease-fighting (immune) system. ? You have nasal allergies or asthma. ? You are experiencing a lot of stress. ? You work in an area that has poor air circulation. ? You have poor nutrition. What are the signs or symptoms? A URI usually involves some of the following symptoms: ? Runny or stuffy (congested) nose. ? Sneezing. ? Cough. ? Sore throat. ? Headache. ? Fatigue. ? Fever. ? Loss of appetite. ? Pain in your forehead, behind your eyes, and over your cheekbones (sinus pain). ? Muscle aches. ? Redness or irritation of the eyes. ? Pressure in the ears or face. How is this diagnosed? This condition may be diagnosed based on your medical history and symptoms, and a physical exam. Your health care provider may use a cotton swab to take a mucus sample from your nose (nasal swab). This sample can be tested to determine what virus is causing the illness. How is this treated? URIs usually get better on their own within 7?10 days. You can take steps at home to relieve your symptoms. Medicines cannot cure URIs, but your health care provider may recommend certain medicines to help relieve symptoms, such as: ? Ouht-bwu-jofkoka cold medicines. ? Cough suppressants. Coughing is a type of defense against infection that helps to clear the respiratory system, so take these medicines only as recommended by your health care provider. ? Fever-reducing medicines. Follow these instructions at home: Activity ? Rest as needed. ? If you have a fever, stay home from work or school until your fever is gone or until your health care provider says you are no longer contagious. Your health care provider may have you wear a face mask to prevent your infection from spreading. Relieving symptoms ? Gargle with a salt-water mixture 3?4 times a day or as needed. To make a salt-water mixture, completely dissolve ??1 tsp of salt in 1 cup of warm water. ? Use a cool-mist humidifier to add moisture to the air. This can help you breathe more easily. Eating and drinking ? Drink enough fluid to keep your urine pale yellow. ? Eat soups and other clear broths. General instructions ? Take ylqh-ozw-mzqefkb and prescription medicines only as told by your health care provider. These include cold medicines, fever reducers, and cough suppressants. ? Do not use any products that contain nicotine or tobacco, such as cigarettes and e-cigarettes. If you need help quitting, ask your health care provider. ? Stay away from secondhand smoke. ? Stay up to date on all immunizations, including the yearly (annual) flu vaccine. ? Keep all follow-up visits as told by your health care provider. This is important. How to prevent the spread of infection to others ? URIs can be passed from person to person (are contagious). To prevent the infection from spreading: ? Wash your hands often with soap and water. If soap and water are not available, use hand marketing ambassador. ? Avoid touching your mouth, face, eyes, or nose. ? Cough or sneeze into a tissue or your sleeve or elbow instead of into your hand or into the air. Contact a health care provider if: ? You are getting worse instead of better. ? You have a fever or chills. ? Your mucus is brown or red. ? You have yellow or brown discharge coming from your nose. ? You have pain in your face, especially when you bend forward. ? You have swollen neck glands. ? You have pain while swallowing. ? You have white areas in the back of your throat. Get help right away if: ? You have shortness of breath that gets worse. ? You have severe or persistent: ? Headache. ? Ear pain. ? Sinus pain. ? Chest pain. ? You have chronic lung disease along with any of the following: ? Wheezing. ? Prolonged cough. ? Coughing up blood. ? A change in your usual mucus. ? You have a stiff neck. ? You have changes in your: ? Vision. ? Hearing. ? Thinking. ? Mood. Summary ? An upper respiratory infection (URI) is a common infecti (more content not included)... [facility] ED Patient Summaryon 022 ED Patient Summary [place] [id number] Patient Discharge Instructions Person Information Name: COSMO HENDRIX Age: 27 Years Arrival Date: 10/05/2022 21:52:43 Discharge Diagnosis: Upper respiratory infection Primary Care Physician: DANIELA MARIE MD Provider Information Primary Provider: Jhonatan Lockhart DO Advanced Silverware Buffing Machine Operator:Suleiman Modi PA-C The exam and treatment you received in the Emergency Department were for an urgent problem and are not intended as complete care. It is important that you follow up with a doctor, nurse practitioner, or physician?s nursing home assistant for ongoing care. If your symptoms become worse or you do not improve as expected and you are unable to reach your usual health care provider, you should return to the Emergency Department. We are available 24 hours a day. COSMO HENDRIX has been given the following list of patient education materials, prescriptions and follow-up instructions: Follow-up Instructions: With: Address: When: DANIELA Ochoa [facility] [place] [address] Business (1) In 3 days 10/09/2022 In the event that this physician does not participate in your insurance network, please consult with your insurance company to find a nearby participating provider. Patient Education Materials: Upper Respiratory Infection, Adult A MESSAGE TO ALL PATIENTS REGARDING OPIOIDS PRESCRIPTION OPIOIDS: WHAT YOU NEED TO KNOW Prescription opioids can be used to help relieve rkzhsfne-xd-zivrvj pain and are often prescribed following a surgery or injury, or for certain health conditions. These medications can be an important part of the treatment but also come with serious risks. It is important to work with your healthcare provider to make sure you are getting the safest, most effective care. WHAT ARE THE RISKS AND SIDE EFFECTS OF OPIOID USE? Prescription opioids carry serious risks of addiction and overdose, especially with prolonged use. An opioid overdose, often marked by slowed breathing, can cause sudden . The use of prescription opioids can have a number of side effects as well, even when taken as directed: ? Tolerance?meaning you might need to take more of the medication for the same pain relief ? Physical dependence?meaning you have symptoms of withdrawal when a medication is stopped ? Increased sensitivity to pain ? Constipation ? Nausea, vomiting, and dry mouth ? Sleepiness and dizziness ? Confusion ? Depression ? Low levels of testosterone that can result in lower sex drive, energy, and strength ? Itching and sweating RISKS ARE GREATER WITH: ? History of drug misuse, substance use disorder, or overdose ? Mental health conditions (such as depression or anxiety) ? Sleep apnea ? Older age (65 years and older) ? Avoid alcohol while taking prescription opioids. Also, unless specifically advised by your health care provider, medications to avoid include: ? Benzodiazepines (such as Xanax or Valium) ? Muscle relaxants (such as Soma or Flexeril) ? Hypnotics (such as Ambien or Lunesta) ? Other prescription opioids KNOW YOUR OPTIONS Talk to your health care provider about ways to manage your pain that don?t involve prescription opioids. Some of these options may actually work better and have fewer risks and side effects. Options may include: ? Pain relievers such as acetaminophen, ibuprofen, and naproxen ? Some medication that are also used for depression or seizures ? Physical therapy and exercise ? Cognitive behavioral therapy, a psychological, goal-directed approach, in which patients learn how to modify physical, behavioral, and emotional triggers of pain and stress. IF YOU ARE PRESCRIBED OPIOIDS FOR PAIN: ? Never take opioids in greater amounts or more often than prescribed. ? Follow up with your primary health care provider. o Work together to create a plan on how to manage your pain. o Talk about ways to help manage your pain that don?t involve prescription opioids. o Talk about any and all concerns and side effects. ? Help prevent misuse and abuse o Never sell or share prescription opioids. o Never use another person?s prescription opioids. ? Store prescription opioids in a secure place and out of reach of others (this may include visitors, children, friends, and family). ? Safely dispose of unused prescription opioids: Find your community drug take-back program or your pharmacy mail-back program, or flush them down the toilet, following guidance from the Food and Drug Administration (www.fda.gov/Drugs/R esourcesForYou). ? Visit www.cdc.gov/drugover dose to learn about the risks of opioids abuse and overdose. ? If you believe you may be struggling with addiction, tell your health care management coordinator and ask for guidance or call [facility]S National Helpline at 8-718-139-RKMY. (more content not included)... [facility] Consent for Treatmenton 09-17 Consent for Treatment [id number] 21 [id number] #1.00CD:127 [facility] Coding Summary.on 08-20-2022 Coding Summary. [id number]+[id number]+PE1FV [id number] U5HEJOLZIFDBO7PRB1mq AZ2VQxtI2AmfdDy OphbsIHgFL55FHn5OMU7 oHcyJUbkzK6baMMfQ3s1 EgQdKL14pL48CZmyQEHp WxX8KoCnaqfihJXb K4rvGuQgtNBtYfc+PHRh YmxlIHdpZHRoPScxMDAl MvJvgVygYY8rOv0qRVHz LWNvbGxhcHNlOiBj r0oyHFQoDJxoMO1jcGdl N5YbhDC6EZVnv6d0On87 dHI+GJTvVLE7fBftMRyk n782WlWij9wfPPD3 mSSlNHrvLVY0T47xb2Z6 NIVfVWErVMO3sFC3qV4g lZlceoqtC1ZcbFOtTtZ3 YMH4lQGgaT1lnUcg hsfcrD1nBop+S97TNY1M ZUYGFL9OGbw5U3HkAknv dHI+RA24IZDpGZ06xWPm sYFht0dhiMy0TkFm SPQvGIO5rWysFIveh8Mg WZTmN81gwCMii5B0YWMy sAwdcJMxKlTuiUX2iC0m HEsofsbtw2ymvxgn Rrrsf7emtx80gW43P49h UUfdUBMeAGI7WMTwCKQc dDjgpk0ifW3jEa4+IDxj t8xby1fcuNv6MlCl RFYrlfEsfZkzION9f6Ps Yl52M4JbdWxdp4EoZzc3 nu29mDGiv6T7hSE2FZpi HKCjdJ4tWDngOoP1 MYMtQoSqiQ75tIFuTLcr Yo1hmUbesBluNT8vZNOp uzwdFFXabZ3oBKYnzPVy tFogXK5wQDJeazhb y207TbYqRDD4DVXbeVXc B2XglL0qVjPkICYoMFSj F8OodNZmBHibX040ODql XeF6XLIffqTiR3Fh TIDoaYbxAyI1r0N2Ap4B r2AwvpprSSS2VJsbZZMg HkE9AcHmSuF0X3SpQtc3 QLKetKgeWU0yS1Yv MCDpissapntobGA6TWBa VYDrxV90rLTbANfeSs9n s0Q6q764CEJlNLKuxQ93 Qf5riOleHOPfuORM iC2swfmig9gpznjlCeNd FXBkLGu0YTv3RDBxzYsi MxPyANJ2XaS9MUA7uHUs hX6oxPruhawffF2t Oyc+Z74zxL8mHCF7OFU1 vxxtRQYjcaHcTY83NZ59 A6NnHjgbpGQliYH+PGRp geMefSnmFI1pPdTr r2org7WcLPdgB6CnWCQv KJiwOzr1MGUqYMX4dPW1 lC6lIODhIBjil1F6jUQ0 K3MejyXsof3kt8yi WWMwOShrI22xhNCsb8G0 RCZnfBT2CTCloKgsRdJw sT65Dhc+KJYlgBooq5Gp Qbqyt7djb8ntgXl9 IjMwJSIgdmFsaWduPSJ0 i7AiYi09L77hKQyoNWIz QBBfFVJxECGehMlzzy8p kO0uOt8+PGNvbCB3 gTZ9xC4hFTNaVdR2KWcv U648DuValADmTryuj6sc z3cykLo4MuJxYXItojAt xDttSSS1e9GsDm80 Q80gRLvrKJKsQXVjJCSh NYWlbKuogt9ybW1vQd7+ NB3uq7uqyc30pP79aCM+ KVExNPL1nRvaBCxy NCEpjF7gIBcoUuP3ELEb CsLmtE73zBWlZVulGr4k dSyepXidPU4rIIJhlosr v392DfGrx0poSTYf nNWnOUisFYQ2D71tj7V9 AFCqWZQqJXT9uFI6aL8m bGlnbjogbGVmdDsgdmVy pXxoGXwuXIaxO341 IHRvcDsnPlBhdGllbnQg PzVwBUx3T2BuFpq9UQKk eFzkCL0xrCAtJLjdFq4a eOxxwRzfYO4oHHYa tarnh626BjErq0czQMBx eROnTOzcEBF7B11ai8E3 PKImJIVdHLI0mNV3pF5p bGlnbjogbGVmdDsg asXlpZnnFDepRHgkX597 IHRvcDsnPkJpcnRoIERh xWL6DQ50SY06bUYrb0N0 zIO3Q6CzSVBpzaub zxwdqKV1FZPxXTRgdK87 Yb8gpAfgQe4gYALtAFA2 QZSkePFqM8KauY1lFeOt CCZsUDGpC9DxyUVt AKngF959OIppNmZ2NQLb eaCrJ8XtSUZacVqlTcQ3 c8P9Fm4XZ1U7DV46RQ57 vHGmx3D9sUK1F7Fx NSYrwmdpbodfmNB8JNBs YXNciQ92Ps6fvUujKr7s RKAjMTY0TOTnnEYdC2Lr yN4kPgBdVPMwIUZi K2TwmANxYWpoT798SVup TvC6PSCiwqArD3NuDXEt mYuiUcG0z1K9Ql1PKPb9 QX88LJ64qHKbw6B5 jUF3Q8PdQLBcwulbwkyf oJK0ZXVuMBFirZ01Bb7s xDnvJs6pRLCeBCW6XISi wXHnY8FhgP9kJjPk AMGeYFDfL5NgbXKdGBsm B654OWzaVoI9KRVqgsZv K8RkMDSqnVrjNmT2y7B8 Ty0JUGPmQR51UEO9 eTY8ZT95GY50I8MuDzex dGFibGU+PHRhYmxlIHdp ZHRoPScxMDAlJyBzdHls IT6rMb5yDCJmCUUo sIraqTBoJiCcs7agCSHc WHnkLE1maLkxM5KxwIE8 ZCMvt6z6Re12F19zJ8Kq dXA+FVWdjPJ1oCN4 eN7xNqTqFiP3GMnmL776 MdAriIUhGwguc9vsg2xb sKm6WbS9VNNscqEczZfo NCG8r8AqKg22T52r IHdpZHRoPSIxNSUiIHZh xBaphj3ieB2xIa9+PGNv uYN0kCP0hF0dTvWfYmY0 CHloD125YdYelPMq Hjpms5gcw7qxzVx8VkNr RJKpenEthHujRJX1r8Ht Ms82Y2GwrXiuw0PlQgd0 rf74cKCkx1M5pKI3 C4XoNVEfbkufeUJrdYsu MC8iDHLbidysRKNflK7j YZCrN0k9NsXzBeK8BJmt D2YbhbS6QLNqkPAg BVdiRYL5F20wq6U7DSJi CBKjTPP6iPR3hY0trWoe bjogbGVmdDsgdmVydGlj JMwgALgpS688GSTs oWvvQTFenF9kCHGowPPt qKprQB6dNDSzdkcuNubG Qp3OAemzD3dKIBFSCGXV UY91HU42oYEyf8D1 jHX1R9JkFQGswsgfxtjw xYA7IQMlMZYmpB63tNYu EVgwXe1ro0M0a437RDOi ZFMsvP76Op8ebCmd BWWkiVPAmM9ngchcw9fd znbbIuUeARHvZRe3UGq4 WOGdgLqkXsIbZKA7ZyE0 LBA2aAWdpH9qqEsh lqkqdI6oUpa+MDkvMDUv LPj3ZSgitYV+PHRkIHN0 dXlhZLljYDTwaL6pKBPl M2v2FaGuFjM7ZIxg J1McUBVungqbZr46cL1r BoSlDlW2YPrcS7ImawR8 YCPbkZIcGUalRML2V22y s2Z6USTwTXAtUIY7 xBM4rJ8rqJoixeldfWBk dDsgdmVydGljYWwtYWxp D811ZEHmqWdaSvH2PKnj URNyTH13FL76dMQe k0W4eJT5Z8RqBPUhdcom cxumdNR9DQBoCPWhoE12 cMHrSOoeWy9qp9X3p389 QEUyGKGzmZ12Lf8z iIbzBXJmqKELxK5gsfsl j3xgeevsGsEyWSWyCLf2 SHf1ZKAuhDpfSxNuNGF9 OkQ3YIR4lCOytU9y nPwmpkyglR8rXrp+RmVt PYriGQ89NN02kNHlg0M4 dCC0L8DiTWNicnpibsil nMR5XIReEZAskE02 cAQtIYugGd7yp1M3n108 SPGsJPDtnQ99No6qvZmm KUBrqUIJjP0paahle5bc cjogIzAwMDAwMDt0 JJe8MGNmmGmyOoLmXXT6 ZlY2ZIM5nIOqxP0xmJey ttfreW2vSqc+IW5wqzrh dhO8EA75VU95D8Rr PjwvdGFibGU+PHRhYmxl IHdpZHRoPScxMDAlJyBz bJaeMF4jCy5eJCFrVDNt zPwdzYJnSjCjd5qn AGIlIYnjLP1fjZisT3Le yFM2DUVkv9e5Yg34X97t J3WccHD+HSLegZR0dZX5 zA2oMmBuMfG8KSrq V261DdIgvIVyIezhx6wm r9qxoWp1QbKeSLVgqeSk bUruLNV5v9WzFl15V99i IHdpZHRoPSIyMCUi TDVhzRdqha9kuE1kBt9+ PNEygKW4sOW1pB8iEiPv AiQ4NRvlS924KnXnkSEd DpmiK00hH1ByzCP+ PACtRit0WVHljKmjFN7k rQWbOWisUk6cVEE5HlGo PkLcTDfyU9OmVLLzfuqz lxyhdAU1QYDwFCYt qY44Xi7uvUmrHx2zHGIs POO6LERluNUmR7EgeC7f KtWxSUQnVKOfD8LloRPe WBlyL842PDvyLnC1 SECsatZtS7ZvFKHgtTar VgC5f5K8Ye9JeYkxqHIw XV1jXbMaVTr3Y5TuKsz0 WETwoHvuSW8qxOTs LKlzBl0fjBltmDxzGA7u VRZdzvkyz795AqEwl2ks IBCeqMTzBHlsJOH7X61y m7V3ZEAiSQEzQBR0 eCA7bL9czYlvxzmypMAl dDsgdmVydGljYWwtYWxp Z350ALHpcYprAwJNCwa3 T0RbGah9EYTyoOjk DY9evAMaTFsfNt3dnYft dNmgXD5bAQWptplmi934 CuDbi4aiKVPdtJEfCZtj AEO3D39gf8A6JNUr JWKaCMZ3vZR8nK7qiBwe bjogbGVmdDsgdmVydGlj KOawQFnaS239NOVggEit Yo7JYnp7U4GlFsj8 PDFqaHgwPT8qcFOmVQmi Hp4rjXwdeBqqRM9yYECc ekehu703GeWez4gaOLDm lEDkZDwbVRS5I83v l1Z2KFHpQKGsBEG7iHV4 rV7vyYaaqhilmUHuaTvu mlTrsZkjEChkQZjqD746 IHRvcDsnPlBheWVy OjwvdGQ+EJ50eg29L9Xp WzhzKcj5GESsPAF7mAC2 sJ4zHPDaRHfyx0Z6rPH8 J0SgebGxin9ju0fo YXBz (more content not included)... [facility] Consent for Treatmenton 0 Consent for Treatment [id number] 21 [id number] #1.00CD:127 [facility] Discharge Instructionson Discharge Instructions [id number] #1.00CD:127 [facility] ED Clinical Summaryon 2021 ED Clinical Summary [place] [id number] ED Clinical Summary Person Information Name: COSMO HENDRIX [facility] Age: 27 Years : 1995 Sex: Female Language: Filipino PCP: DANIELA MARIE MD Marital Status: Phone: [phone] Visit Id: Visit Reason: Itching; Wrist pain-swelling; IRRITATED WRIST Speciality: Acuity: 4 Enc Type: Emergency Med Service: Emergency Arrival: 08/19/2022 00:50:35 Discharge: 08/19/2022 01:23:19 LOS: 000 00:33 Checkin: 08/19/2022 00:50:35 Checkout: 08/19/2022 01:23:19 Dispo Type: Home (Routine DC) EVENTS: Event Name Event Status Request Date/Time Start Date/Time Complete Date/Time Arrive Complete 08/19/2022 00:50:35 08/19/2022 00:50:35 08/19/2022 00:50:35 Document Home Meds Request 08/19/2022 00:50:35 Triage Complete 08/19/2022 00:50:35 08/19/2022 00:59:08 08/19/2022 00:59:08 Dr Exam Complete 08/19/2022 00:52:31 08/19/2022 00:52:31 08/19/2022 00:52:31 Registration Complete 08/19/2022 00:52:31 08/19/2022 00:59:18 08/19/2022 01:16:10 Bed Assign Complete 08/19/2022 00:59:18 08/19/2022 00:59:18 08/19/2022 00:59:18 RN Exam Complete 08/19/2022 00:59:18 08/19/2022 01:11:19 08/19/2022 01:11:19 Discharge Complete 08/19/2022 01:09:09 08/19/2022 01:23:27 08/19/2022 01:23:27 Reg Complete Request 08/19/2022 01:16:10 Reg Bed Request Complete 08/19/2022 01:16:10 08/19/2022 01:16:10 08/19/2022 01:16:10 Transfer Complete 08/19/2022 01:23:27 08/19/2022 01:23:27 08/19/2022 01:23:27 AD[address]ESS: [address] [facility] [id number] PHYS DOC NOTES: MEDICAL INFORMATION: Prescriptions Given: New Medications [id number] [address] [place], [place] [id number], [phone] triamcinolone topical (triamcinolone Top 0.1% Crm 15 gram) 1 Application Topical 3 times a day. Refills: 0. Medications to Continue with No Changes Other Medications ondansetron (Zofran ODT 4 mg Tab-Dis) 1 Tablets By Mouth every 8 hours as needed Nausea/Vomiting. Refills: 0. PATIENT EDUCATION INFORMATION: Instructions: Rash, Adult Follow up: With: Address: When: DANIELA MARIE [address] [place] [phone] Business (1) In 7 days 08/26/2022, only if needed DIAGNOSIS: Rash [facility] ED Note-Physicianon 08-19-20 ED Note-Physician Basic Information Time Seen: Jhonatan Lockhart DO 08/19/2022 00:52 Chief Complaint (L) wrist irritation since Tuesday. Pt states cleaning patio and had something stuck into wrist. Pt states she scrubbed it and is now having irritation. Complains of slight itching. Wants recommendation for cream. History of Present Illness HPI: Patient is a 27-year-old female who presents the ED for rash on her left wrist. She states that for started 4 days ago when she was cleaning her porch and felt like something was stuck to her left wrist. She is unsure if it was a small twig or a caterpillar but since then she has had a lot of itching of her left wrist. She did scrub it with a sponge after this happened but is continued to itch and there is a localized area of rash. She has been putting Vaseline on it since this happened. She otherwise feels well. ROS: A 10 point review of systems is negative except as noted above. Physical exam: General: nontoxic appearing and in no distress HEENT: Mucous membranes moist Neuro: awake and alert Neck: supple, trachea midline Card: Heart regular rate and rhythm no murmur Resp: Lungs clear to auscultation no wheeze or rhonchi Skin: Small area of clustered urticarial rash on the left wrist. Physical Exam Vitals & Measurements T: 36.6 ?C(Oral) HR: 71(Peripheral) RR: 16 BP: 110/64 SpO2: 99% HT: 165 cm WT: 98 kg BMI: 36 Medical Decision Making Patient is well-appearing and in no distress. She has a small amount of urticarial rash localized to her left wrist. We will give her a topical steroid cream for this and she can also try oral Benadryl. She will follow-up with her primary care physician as needed. Assessment/Plan Rash (R21: Rash and other nonspecific skin eruption) Orders: triamcinolone topical, 1 tyler, Topical, TID, 15 gram, Refill(s) 0, [id number], 165, cm, 08/19/22 0:59:00 EDT, Height/Length Dosing, 98, kg, 08/19/22 0:59:00 EDT, Weight Dosing Disposition Plan Discharge Prescription List Prescriptions triamcinolone Top 0.1% Crm 15 gram, 1 tyler, Topical, TID Follow-up With When Contact Information DANIELA MARIE In 7 days 08/26/2022 EST, only if needed [address] [place] [address]- Business (1) Additional Instructions: Patient Education Rash, Adult Problem List/Past Medical History Ongoing Bipolar disorder, mixed Historical No qualifying data Medications Inpatient No active inpatient medications Home triamcinolone Top 0.1% Crm 15 gram, 1 tyler, Topical, TID Zofran ODT 4 mg Tab-Dis, 4 mg= 1 tab(s), Oral, q8hr, PRN Allergies No Known Allergies Social History Alcohol - Denies Alcohol Use, 11/04/2021 Current, 02/05/2022 Substance Abuse - Denies Substance Abuse, 11/04/2021 Current, 02/05/2022 Tobacco - Denies Tobacco Use, 11/04/2021 Never (less than 100 in lifetime) Tobacco Use:., 02/05/2022 Lab Results No qualifying data available. Diagnostic Results No qualifying data available. [facility] Comment on above: Result Comment: Elec tronically Signed By: Jhonatan Lockhart DO\.br\Date and Time Signed: 08/19/22 01:11 EDT ED Patient Education Noteon 08-19-2022 ED Patient Education Note Infectious Disease Rash, Adult A rash is a change in the color of your skin. A rash can also change the way your skin feels. There are many different conditions and factors that can cause a rash. Some rashes may disappear after a few days, but some may last for a few weeks. Common causes of rashes include: ? Viral infections, such as: ? Colds. ? Measles. ? Hand, foot, and mouth disease. ? Bacterial infections, such as: ? Scarlet fever. ? Impetigo. ? Fungal infections, such as Darline. ? Allergic reactions to food, medicines, or skin care products. Follow these instructions at home: The goal of treatment is to stop the itching and keep the rash from spreading. Pay attention to any changes in your symptoms. Follow these instructions to help with your condition: Medicine Take or apply nxoe-etw-pedxuvv and prescription medicines only as told by your health care provider. These may include: ? Corticosteroid creams to treat red or swollen skin. ? Anti-itch lotions. ? Oral allergy medicines (antihistamines). ? Oral corticosteroids for severe symptoms. Skin care ? Apply cool compresses to the affected areas. ? Do not scratch or rub your skin. ? Avoid covering the rash. Make sure the rash is exposed to air as much as possible. Managing itching and discomfort ? Avoid hot showers or baths, which can make itching worse. A cold shower may help. ? Try taking a bath with: ? Epsom salts. Follow senior service aide instructions on the packaging. You can get these at your local pharmacy or grocery store. ? Baking soda. Pour a small amount into the bath as told by your health care provider. ? Colloidal oatmeal. Follow senior service aide instructions on the packaging. You can get this at your local pharmacy or grocery store. ? Try applying baking soda paste to your skin. Stir water into baking soda until it reaches a paste-like consistency. ? Try applying calamine lotion. This is an bdog-ybe-vztpdmq lotion that helps to relieve itchiness. ? Keep cool and out of the sun. Sweating and being hot can make itching worse. General instructions ? Rest as needed. ? Drink enough fluid to keep your urine pale yellow. ? Wear loose-fitting clothing. ? Avoid scented soaps, detergents, and perfumes. Use gentle soaps, detergents, perfumes, and other cosmetic products. ? Avoid any substance that causes your rash. Keep a journal to help track what causes your rash. Write down: ? What you eat. ? What cosmetic products you use. ? What you drink. ? What you wear. This includes jewelry. ? Keep all follow-up visits as told by your health care provider. This is important. Contact a health care provider if: ? You sweat at night. ? You lose weight. ? You urinate more than normal. ? You urinate less than normal, or you notice that your urine is a darker color than usual. ? You feel weak. ? You vomit. ? Your skin or the whites of your eyes look yellow (jaundice). ? Your skin: ? Tingles. ? Is numb. ? Your rash: ? Does not go away after several days. ? Gets worse. ? You are: ? Unusually thirsty. ? More tired than normal. ? You have: ? New symptoms. ? Pain in your abdomen. ? A fever. ? Diarrhea. Get help right away if you: ? Have a fever and your symptoms suddenly get worse. ? Develop confusion. ? Have a severe headache or a stiff neck. ? Have severe joint pains or stiffness. ? Have a seizure. ? Develop a rash that covers all or most of your body. The rash may or may not be painful. ? Develop blisters that: ? Are on top of the rash. ? Grow larger or grow together. ? Are painful. ? Are inside your nose or mouth. ? Develop a rash that: ? Looks like purple pinprick-sized spots all over your body. ? Has a bull's eye or looks like a target. ? Is not related to sun exposure, is red and painful, and causes your skin to peel. Summary ? A rash is a change in the color of your skin. Some rashes disappear after a few days, but some may last for a few weeks. ? The goal of treatment is to stop the itching and keep the rash from spreading. ? Take or apply furh-gik-menncdv and prescription medicines only as told by your health care provider. ? Contact a health care provider if you have new or worsening symptoms. ? Keep all follow-up visits as told by your health care provider. This is important. This information is not intended to replace advice given to you by your health care provider. Make sure you discuss any questions you have with your health care provider. Document Released: 09/23/2003 Document Revised: 01/25/2020 Document Reviewed: 05/07/2019 [employer] Patient Education ? 2019 [employer]. [facility] ED Patient Summaryon 022 ED Patient Summary [place] [id number] Patient Discharge Instructions Person Information Name: COSMO HENDRIX Age: 27 Years Arrival Date: 08/19/2022 00:50:35 Discharge Diagnosis: Rash Primary Care Physician: DANIELA MARIE MD Provider Information Primary Provider: Jhonatan Lockhart DO Advanced Silverware Buffing Machine Operator:None The exam and treatment you received in the Emergency Department were for an urgent problem and are not intended as complete care. It is important that you follow up with a doctor, nurse practitioner, or physician?s nursing home assistant for ongoing care. If your symptoms become worse or you do not improve as expected and you are unable to reach your usual health care provider, you should return to the Emergency Department. We are available 24 hours a day. COSMO HENDRIX has been given the following list of patient education materials, prescriptions and follow-up instructions: Follow-up Instructions: With: Address: When: DANIELA MARIE [address] [place] [id number] Business (1) In 7 days 08/26/2022, only if needed In the event that this physician does not participate in your insurance network, please consult with your insurance company to find a nearby participating provider. Patient Education Materials: [place] A MESSAGE TO ALL PATIENTS REGARDING OPIOIDS PRESCRIPTION OPIOIDS: WHAT YOU NEED TO KNOW Prescription opioids can be used to help relieve bcgjwfaj-bq-bcstjy pain and are often prescribed following a surgery or injury, or for certain health conditions. These medications can be an important part of the treatment but also come with serious risks. It is important to work with your healthcare provider to make sure you are getting the safest, most effective care. WHAT ARE THE RISKS AND SIDE EFFECTS OF OPIOID USE? Prescription opioids carry serious risks of addiction and overdose, especially with prolonged use. An opioid overdose, often marked by slowed breathing, can cause sudden . The use of prescription opioids can have a number of side effects as well, even when taken as directed: ? Tolerance?meaning you might need to take more of the medication for the same pain relief ? Physical dependence?meaning you have symptoms of withdrawal when a medication is stopped ? Increased sensitivity to pain ? Constipation ? Nausea, vomiting, and dry mouth ? Sleepiness and dizziness ? Confusion ? Depression ? Low levels of testosterone that can result in lower sex drive, energy, and strength ? Itching and sweating RISKS ARE GREATER WITH: ? History of drug misuse, substance use disorder, or overdose ? Mental health conditions (such as depression or anxiety) ? Sleep apnea ? Older age (65 years and older) ? Avoid alcohol while taking prescription opioids. Also, unless specifically advised by your health care provider, medications to avoid include: ? Benzodiazepines (such as Xanax or Valium) ? Muscle relaxants (such as Soma or Flexeril) ? Hypnotics (such as Ambien or Lunesta) ? Other prescription opioids KNOW YOUR OPTIONS Talk to your health care provider about ways to manage your pain that don?t involve prescription opioids. Some of these options may actually work better and have fewer risks and side effects. Options may include: ? Pain relievers such as acetaminophen, ibuprofen, and naproxen ? Some medication that are also used for depression or seizures ? Physical therapy and exercise ? Cognitive behavioral therapy, a psychological, goal-directed approach, in which patients learn how to modify physical, behavioral, and emotional triggers of pain and stress. IF YOU ARE PRESCRIBED OPIOIDS FOR PAIN: ? Never take opioids in greater amounts or more often than prescribed. ? Follow up with your primary health care provider. o Work together to create a plan on how to manage your pain. o Talk about ways to help manage your pain that don?t involve prescription opioids. o Talk about any and all concerns and side effects. ? Help prevent misuse and abuse o Never sell or share prescription opioids. o Never use another person?s prescription opioids. ? Store prescription opioids in a secure place and out of reach of others (this may include visitors, children, friends, and family). ? Safely dispose of unused prescription opioids: Find your community drug take-back program or your pharmacy mail-back program, or flush them down the toilet, following guidance from the Food and Drug Administration (www.fda.gov/Drugs/R esourcesForYou). ? Visit www.cdc.gov/drugover dose to learn about the risks of opioids abuse and overdose. ? If you believe you may be struggling with addiction, tell your health care management coordinator and ask for guidance or call [facility]?S National Helpline at 4-587-220-CSPT. [employer] Source: [employer] Department of Health and Human (more content not included)... [facility] Coding Summary.on 04-06-2022 Coding Summary. [id number] Gh0bWw+PGhlYWQ+PE1FV JIeW80gtDYtsE7DR7wZV Q5AVOFFCVQIDY1VSO1wz MS1ZQvkG7JkpoMt EalccFJeKZ28RMk0QSA5 cPygZSjevI6ouFCmH6k5 IiUlIE40zL47CJrmZWFd CfB1HpXpharuiWJb D1rhTsHeeXAvEzs+PHRh YmxlIHdpZHRoPScxMDAl RjWxqYbeZR4vZy8lMFJc LWNvbGxhcHNlOiBj g9gtVFMeOEqbLD7ueLki W8MthZL3NOKnb5b4Kr58 dHI+LPZuEUC3oPvbAYih l806QkDgo8euKTF8 mHTtPRlgBSC6J39xr8C2 IYAuBAMeJZI3rWG9kW4p kNrgeeufW1BrbMOjCaJ3 MFZ3nJBffQ9zaGio jqgnwO1lRgs+O70FBL1D MRXYPO4KHtr3S7PjIjwb dHI+NJ01OWJtKZ20jRSy iWPzd8taaVv0EzDl XHFlOFJ7lYfpCNrin1Sy EQEiS70tfGJym7W1IVZg sIsdeYQtZoYbeSM9qU8t HSmiayzld3buyofd Vexmq2wgqj70eK63F63v BOlpGPIbVQD9UVDtPQVy lOeybr7tmU1kWn5+IDxj k4ucm9horMt1XcZe UTYhneXosFbrVNF7p7Kp Uq64P4YmcXkqu6ZpCpd8 iy74oAPct1X7nRG3IYyo FYUfjS5aSKoqXeI5 EAGqAeKclH33rXQwCYdb Qx0ksSovtTjtCY5qWXAq dgthTOGhuS3zXPNhlYMt sFoqSE1rPIKbudhj v877EvYoOET8KSTknPHq N2WikA5aUqDaHYZbKNBd D3MqvPXhWBbcF523LWvq KnZ6ZFHmtnJxW8Zj JVKapWrmEgB4d9M9Gh0M h9UvqdbdSON5NPncYMH7 OcZnCaYkTdI8R9ZvGjv2 ZWYdhHmsFY3xN4Yr CPLhqzjxblmvqOA6OEJi ULGhrF04bCEhZRbdEw0f j0D7c446YYPmBMWkcV25 Gb6awMdrROMbxDIC wB5oxipfv4rigvieEjHs WZFuWKt0NZv8BIOihIqh DuChQDW1GiJ7QZH1yMWq yU7gpQopedvchL4n Oyc+T23oeQ6iLNT8LMU3 ptrqSQSoxbQjWO74YE57 M9WlYsoisWVtjOF+PGRp fyCcgJgoWE7yNgPl z9urx9TjQAxkN9KtEJGl RSgzVuh5YOYzYGW4uTA8 qY6uAWNpBZgyj0X5fMP7 E6OqpsSdqs6td1zc CBGqJAmkU90inFTer8X8 WVDczCH3AAVuoXhrIrJg zD90Bfe+TMObmXzor9Zr Ljzqj6ogs8bonBo3 IjMwJSIgdmFsaWduPSJ0 o9FfCv84I10mQCkkOAEk UCOuMVBaYKFptWqpwq0r jZ6bFk3+PGNvbCB3 tIZ2dP5eXIHmLbK7AQzs P220TkUvuQMbSpxbh3sy q8hhfZn6PzPaXDXilkDg zTudMZZ5t3TjEl58 J83nQBwsEOQvWSNjVXAy MQVcxOrmkp0dzZ3oGs0+ JN8rh6ksgn70zN66mNW+ HTSyCUB7kYrlTQqe CDXlsP8cGOjqPzB9QCHu VnEthK26rYHmWKhkSb7y eGvddVlpGN0gYSYimymh u082IvYkc6wdWQKt qICwFLjfBHS2R98ph6V6 BSZdLTXoBVK4hCY2fQ7s bGlnbjogbGVmdDsgdmVy zWlmVDmxEGenE250 IHRvcDsnPlBhdGllbnQg YkSqOXg9P1RfSkj6WCLk nDptTF0muWWlHHnxTg6x vFylnMwsXS4zPYWo hwsfj302JkZyw3roHBDv vSRbNUfgPKC4T53yn6R6 HDKtRTMlTJL7kGI6hU7r bGlnbjogbGVmdDsg qxEsyNofIKxiIYflP121 IHRvcDsnPkJpcnRoIERh fNY0NH43CS55xZHin6O4 tUW5L9WwOBJfuygw cvorpWY9TCClZKDbyN58 Fa8esZmfUk6sLWFiHTR3 CZTieNEdJ6QweC3mZpQr DCQsXJIoW1UwwWIa TYdcV077IFeeGoJ6XHGz gtGgR2JkXVMbyDnuZdK6 c8Q6Tg9GN9U8NW45DM71 lDIco8Z0yMZ9G6Eg QBHcauogbzvdbBV0POSp YSUqzO68Wn8caSpiDm5m VIEmCHV0YXWvtRYaC0Sz vZ9bRwJeHJKdIAIt U5DfuKXeXUolP528VYsq NiX6MQHbtnIgU5UiIQWg pZqhOcP2p2H7Hk1DJIf6 ZQ59BE86qJBxf5L4 fSV1K9PqVXJbwnakotsi wBE2JYRqZIPkeO23Cm8g sPdvWo4oFKVdKEM9XSZx jAAbD8SzuI8aOrGm CLGdHPYdT5PotTBtQKnx O177QWfdZzB7KAXtgfEf X9AaVFZyuWujUxS0k5B2 Ia3JMRDsSW85LRB9 jWI2KJ42HU66J8RpFmnj dGFibGU+PHRhYmxlIHdp ZHRoPScxMDAlJyBzdHls GP8xNd1kNDAcEZNq iYrcaQCwGhAhp9gxPZUk RGfkED4ugZmmF1OisKR6 SLTlv0h0Bw94T00lB1Ph dXA+XQAvpVQ3aWX0 zQ1rPeOgXkL3WIfzZ353 LzGlkAKyMspco5wpe2xd oOb8LfS9KFVgkxEiwCly EYT5c4RfWb17C98f IHdpZHRoPSIxNSUiIHZh eYmdpv9ozD8aZf3+PGNv uIL3jGZ8uU7oKuTzQrF5 SCiuT382WvPaeGRf Otwxg6ing8ljmPp7SbLt RNOgjlAxiFufLDM8c7Oc Ll15K0XazFabb4BePbq6 qp23yTFoz8G7rRG0 K8HjVVXiaenonUOumPqf ZY5qEDCzycqoLNNkvI9j EFUnR5h2PsLpVsK9JLzi O1CnzuW5KFTunUIq WZraOBV1Q53jd4W9IUBt REKrJZF1qEQ5vK3swYqf bjogbGVmdDsgdmVydGlj ZAugEWwmX284AGZu kDxtIZJkkV2rNJOzpMJg iFegEK6mLTYwqzqdVdoP Nf0BBdqjC8vLUOOZDDLW AP28TN14xQQgi1L3 dBT0V5HsGVDqxlxarscb wEK5LTWdWLRphE43iIXs TSnbDy5sv9W2a169CYOl LCMpzV20Ln7xyOly WCSpnGGFlU1baaiag1uf aijwYzZyYKMzIGj1LEq5 QCDrlNniQeTcRXK6EuK1 KOJ6kKPurX8bqQxf vtulrG2qQgx+MDkvMDUv CYw3OLfolYA+PHRkIHN0 jWkaFVzcQMGmpU8uWWIk B5p3AvHzVwH2QNyt Q1RwZWQnifryPy92jZ1c TbBlLwA3SVibT9IasuD2 VILglJZuDHzzARG9N37z h5K9QZSpUZIfBDT9 gJV5sW1sdUpzquocoFXn dDsgdmVydGljYWwtYWxp C002XIUkwQeqPaN0VNfs PSDqOF59ZI25kMUq b4D5lFJ0Y1MpUQPyhlsx rxmzhGO4CLQmFORwoX73 kLKqAWxgUg2xo7M9p167 WICtIXWvfQ35Gv6j ySokYAQwlAXSfE5oiqqh g7uzlskiCjKxUCVeVLs6 ABe8GSKifKaaFhFfXWC1 DzM1FDN6gLYztK2p lAafojlysS7eCsp+RmVt XDyzIR98DK54vSRsa6G0 kWO4L2QeLWQgybjprrtb qBO0XJBcMNRubZ96 fZHgRVyeOw8ay2G0m345 CGKsPRZngZ94Fd3qhNuf SOKgjBIKiL1qeksmb5at cjogIzAwMDAwMDt0 FDv4XIOtuAepIbOoIUQ6 AwK3DEQ3dYDjzK9vcJiy opdubD8eSwe+EC1oqbmc qbH2CM28OT96I5Hv PjwvdGFibGU+PHRhYmxl IHdpZHRoPScxMDAlJyBz pHwjVP0cEj7jJPMxGNXd lWhzzEVpVrHwv2sm AYTkCWrfJG8izCkbC6Rc lGS6XIBne2v3Hl29M73t W1WmsBY+BLOcfNZ2tBW9 bU0rVzOvHxI6CRzq F524DgHjqOVhFytin2oe c1skaYb1SrMaZKGcscFs yEymTRD8s4GvMu19E15o IHdpZHRoPSIyMCUi PTIubRvbqj1cxF6gCe7+ BUVrdIQ0lLS1qC6mTlFe UfZ8WNngJ892WoWhcVPl SkaaU04tW0WifEE+ GGTlBpb3HTFrfLplGG0h hPCxZWhtRz4oLNA2ZbWs AgDqHOnlN2VoPCZqdfta swtvzTL4WTWtQLBp pJ46Xd6laZwdAp4zDBLv PYY4BHKueHCaN7QxqU3d JnDwROPzJMGsR5TceLZi SBezJ764XFlbCmR6 WARdkuTdS9JlNDXevLwr ZjU4k9B5Au4TqFvxaPMb LY1iRtNbZBx6R9ZoQjg0 WHEomFloXQ3ftTLr TGlzNw8ruVwsxPupFZ8n ZAZbuwwon168CeBqh0mj SSWysKNfJXxqIGP9M66u m6F2RIVeUYYcRSX6 cIM8lB5krAthkujpaVIg dDsgdmVydGljYWwtYWxp A266GIAjbKzeMeDBZld3 A7LgXzx8AWIheKem SU6msSXdMStgSe9eqPeu kXcrVS5vTOVdoqedr787 ZiIqc6ztFDZwbPKwRCad VJX2D34ie2P6SQOo NRKgODK9fEX6qC6daRxq bjogbGVmdDsgdmVydGlj YVxtLFcyC739GKOanDhy Vn5AHep3B0FfBtp5 GIAxkJweWX0shNAaAFca Rb3gfNzlcXkqFT7wTRMj elmyj840JgSre5qsBFKp nHNsCBaqOUA8J45l a5N4OCGdVAUaXWN6xVY7 vO4ewKmyuicszAQhhAgo tdVhvYafQAuaJNwvP423 IHRvcDsnPlBheWVy OjwvdGQ+LX12wl08N6Id FrhkJmu7NZZcFDF0bUR3 cN2eIFLzLJkmy6A5vVY3 U9VufeVyul3kd9pm YXBz (more content not included)... [facility] Consent for Treatmenton 03-18 Consent for Treatment [id number] 20 [id number] #[id number]:127 [facility] Discharge Instructionson Discharge Instructions [id number] #1.00CD:127 [facility] ED Clinical Summaryon 2021 ED Clinical Summary [address] [address] ED Clinical Summary Person Information Name: COSMO HENDRIX [facility] Age: 26 Years : 1995 Sex: Female Language: Filipino PCP: DANIELA MARIE MD Marital Status: Phone: [phone] Visit Id: Visit Reason: Throat pain - Adult; Nausea; Diarrhea; HEADACHE, VOMITING Speciality: Acuity: 4 Enc Type: Emergency Med Service: Emergency Arrival: 04/04/2022 22:14:56 Discharge: 04/05/2022 02:09:20 LOS: 000 03:55 Checkin: 04/04/2022 22:14:56 Checkout: 04/05/2022 02:09:20 Dispo Type: Home (Routine DC) EVENTS: Event Name Event Status Request Date/Time Start Date/Time Complete Date/Time Arrive Complete 04/04/2022 22:14:56 04/04/2022 22:14:56 04/04/2022 22:14:56 Document Home Meds Request 04/04/2022 22:14:56 Triage Complete 04/04/2022 22:14:56 04/04/2022 22:40:58 04/04/2022 22:40:58 Pending Labs Complete 04/04/2022 23:51:33 04/05/2022 01:44:40 Lab Complete 04/04/2022 23:51:33 04/05/2022 01:44:40 Swab Complete 04/04/2022 23:51:33 04/05/2022 01:44:40 Bed Assign Complete 04/05/2022 00:06:33 04/05/2022 00:06:33 04/05/2022 00:06:33 Dr Exam Complete 04/05/2022 00:06:33 04/05/2022 00:13:11 04/05/2022 00:13:11 RN Exam Complete 04/05/2022 00:06:33 04/05/2022 01:27:13 04/05/2022 01:27:13 Registration Complete 04/05/2022 00:13:11 04/05/2022 00:24:18 04/05/2022 00:24:18 Reg Complete Request 04/05/2022 00:24:18 Reg Bed Request Complete 04/05/2022 00:24:18 04/05/2022 00:24:18 04/05/2022 00:24:18 Discharge Complete 04/05/2022 01:56:06 04/05/2022 02:09:28 04/05/2022 02:09:28 Transfer Complete 04/05/2022 02:09:28 04/05/2022 02:09:28 04/05/2022 02:09:28 ADDRESS: [facility] [address] [facility] [id number] PHYS DOC NOTES: MEDICAL INFORMATION: Prescriptions Given: New Medications [id number], [address] [place], [place] [id number], [phone] ondansetron (Zofran ODT 4 mg Tab-Dis) 1 Tablets By Mouth every 8 hours as needed Nausea/Vomiting. Refills: 0. PATIENT EDUCATION INFORMATION: Instructions: Nausea and Vomiting, Adult Follow up: With: Address: When: ARISLOVE MARIE [address] [place] [phone] Business (1) In 3 days DIAGNOSIS: N&V (nausea and vomiting) [facility] ED Note-Physicianon 04-05-20 ED Note-Physician Basic Information Time Seen: Jhonatan Lockhart DO 04/05/2022 00:13 Chief Complaint Pt. presents to the ed with c/o nausea, vomiting, diarrhea that started yesterday after going to [place]. Pt. is alert and oriented x 4 upon arrival. History of Present Illness HPI: Patient is a 26-year-old female with past medical history of bipolar who presents the ED for nausea vomiting diarrhea. Mother states this for started yesterday after going to [place]. Her entire family had similar symptoms and her is sick at home in bed. She denies any fever with this. She denies any cough or shortness of breath. She states that she was concerned for possible COVID so wanted to come get swabbed. ROS: A 10 point review of systems is negative except as noted above. Physical exam: General: nontoxic appearing and in no distress HEENT: Mucous membranes moist Neuro: awake and alert Neck: supple, trachea midline Card: Heart regular rate and rhythm no murmur Resp: Lungs clear to auscultation no wheeze or rhonchi Abd: Soft and nondistended. No tenderness with no rebound or guarding. Ext: No gross deformity or edema Physical Exam Vitals & Measurements T: 37.0 ?C(Oral) HR: 76(Peripheral) RR: 18 BP: 108/69 SpO2: 100% HT: 170.2 cm HT: 170.18 cm WT: 96.0 kg WT: 96 kg BMI: 33.15 Medical Decision Making Patient is well-appearing in no distress. She is afebrile in the ED. She had no active nausea or vomiting while actually in the ED. We will swab her for flu and COVID. Swabs are negative. I discussed that the likelihood that it is a different viral illness. We discussed the plan of discharge with oral Zofran and oral hydration and conservative measures. She will follow-up closely with her primary care physician. Assessment/Plan N&V (nausea and vomiting) (R11.2: Nausea with vomiting, unspecified) Orders: ondansetron, 4 mg = 1 tab(s), Oral, q8hr, PRN Nausea/Vomiting, # 20 tab(s), Refills(s) 0, Pharmacy: [id number], 170.2, cm, 04/04/22 22:40:00 EDT, Height/Length Dosing, 96, kg, 04/04/22 22:40:00 EDT, Weight Dosing Influenza A&B Ag Rapid COVID Antigen ([place]) Disposition Plan Discharge Prescription List Prescriptions Zofran ODT 4 mg Tab-Dis, 4 mg= 1 tab(s), Oral, q8hr, PRN Follow-up With When Contact Information ADNIELA MARIE In [address] [facility] (1) Additional Instructions: Patient Education Nausea and Vomiting, Adult Problem List/Past Medical History Ongoing Bipolar disorder, mixed Historical No qualifying data Medications Inpatient No active inpatient medications Home Zofran ODT 4 mg Tab-Dis, 4 mg= 1 tab(s), Oral, q8hr, PRN Allergies No Known Allergies Social History Alcohol - Denies Alcohol Use, 11/04/2021 Current, 02/05/2022 Substance Abuse - Denies Substance Abuse, 11/04/2021 Current, 02/05/2022 Tobacco - Denies Tobacco Use, 11/04/2021 Never (less than 100 in lifetime) Tobacco Use:., 02/05/2022 Lab Results Influenzae A Ag: NEGATIVE1 (04/05/22 01:21:00) Influenzae B Ag: NEGATIVE1 (04/05/22:21:00) Rapid COVID Ag: Not Detected (04/05/22:21:00) Rapid COV Int NEG Ctl: Pass (04/05/22:21:00) Rapid COV Int POS Ctl: Pass (04/05/22:21:00) First Test: Unknown (04/05/22:21:00) Employed in Healthcare: NO (04/05/22:21:00) Symptomatic as defined by CDC: YES (04/05/22:21:00) Hospitalized?: Unknown (04/05/22:21:00) ICU: NO (04/05/22:21:00) Resides in a Congregate Care Setting: NO (04/05/22:21:00) ?: NO (04/05/22:21:00) Diagnostic Results No qualifying data available. [facility] Comment on above: Result Comment: Elec tronically Signed By: Jhonatan Lockhart DO\.br\Date and Time Signed: 04/05/22 02:04 EDT ED Patient Education Noteon 04-05-2022 ED Patient Education Note Gastroenterology Nausea and Vomiting, Adult Nausea is the feeling that you have an upset stomach or that you are about to vomit. Vomiting is when stomach contents are thrown up and out of the mouth as a result of nausea. Vomiting can make you feel weak and cause you to become dehydrated. Dehydration can make you feel tired and thirsty, cause you to have a dry mouth, and decrease how often you urinate. Older adults and people with other diseases or a weak disease-fighting system (immune system) are at higher risk for dehydration. It is important to treat your nausea and vomiting as told by your health care provider. Follow these instructions at home: Watch your symptoms for any changes. Tell your health care provider about them. Follow these instructions to care for yourself at home. Eating and drinking ? Take an oral rehydration solution (ORS). This is a drink that is sold at pharmacies and retail stores. ? Drink clear fluids slowly and in small amounts as you are able. Clear fluids include water, ice chips, low-calorie sports drinks, and fruit juice that has water added (diluted fruit juice). ? Eat bland, ssvt-lc-lhttah foods in small amounts as you are able. These foods include bananas, applesauce, rice, lean meats, toast, and crackers. ? Avoid fluids that contain a lot of sugar or caffeine, such as energy drinks, sports drinks, and soda. ? Avoid alcohol. ? Avoid spicy or fatty foods. General instructions ? Take emth-vos-kmfdzst and prescription medicines only as told by your health care provider. ? Drink enough fluid to keep your urine pale yellow. ? Wash your hands often using soap and water. If soap and water are not available, use hand marketing ambassador. ? Make sure that all people in your household wash their hands well and often. ? Rest at home while you recover. ? Watch your condition for any changes. ? Breathe slowly and deeply when you feel nauseated. ? Keep all follow-up visits as told by your health care provider. This is important. Contact a health care provider if: ? Your symptoms get worse. ? You have new symptoms. ? You have a fever. ? You cannot drink fluids without vomiting. ? Your nausea does not go away after 2 days. ? You feel light-headed or dizzy. ? You have a headache. ? You have muscle cramps. ? You have a rash. ? You have pain while urinating. Get help right away if: ? You have pain in your chest, neck, arm, or jaw. ? You feel extremely weak or you faint. ? You have persistent vomiting. ? You have vomit that is bright red or looks like black coffee grounds. ? You have bloody or black stools or stools that look like tar. ? You have a severe headache, a stiff neck, or both. ? You have severe pain, cramping, or bloating in your abdomen. ? You have difficulty breathing, or you are breathing very quickly. ? Your heart is beating very quickly. ? Your skin feels cold and clammy. ? You feel confused. ? You have signs of dehydration, such as: ? Dark urine, very little urine, or no urine. ? Cracked lips. ? Dry mouth. ? Sunken eyes. ? Sleepiness. ? Weakness. These symptoms may represent a serious problem that is an emergency. Do not wait to see if the symptoms will go away. Get medical help right away. Call your local emergency services (911 in the [place] Do not drive yourself to the hospital. Summary ? Nausea is the feeling that you have an upset stomach or that you are about to vomit. As nausea gets worse, it can lead to vomiting. Vomiting can make you feel weak and cause you to become dehydrated. ? Follow instructions from your health care provider about eating and drinking to prevent dehydration. ? Take meum-yzp-rsbbseq and prescription medicines only as told by your health care provider. ? Contact your health care provider if your symptoms get worse, or you have new symptoms. ? Keep all follow-up visits as told by your health care provider. This is important. This information is not intended to replace advice given to you by your health care provider. Make sure you discuss any questions you have with your health care provider. Document Released: 10/03/2006 Document Revised: 01/25/2020 Document Reviewed: 03/13/2019 [employer] Patient Education ? 2019 [employer] [facility] ED Patient Summaryon 022 ED Patient Summary [place] [address] Patient Discharge Instructions Person Information Name: COSMO HENDRIX Age: 26 Years Arrival Date: 04/04/2022 22:14:56 Discharge Diagnosis: N&V (nausea and vomiting) Primary Care Physician: DANIELA MARIE MD Provider Information Primary Provider: Jhonatan Lockhart DO Advanced Silverware Buffing Machine Operator:None The exam and treatment you received in the Emergency Department were for an urgent problem and are not intended as complete care. It is important that you follow up with a doctor, nurse practitioner, or physician?s nursing home assistant for ongoing care. If your symptoms become worse or you do not improve as expected and you are unable to reach your usual health care provider, you should return to the Emergency Department. We are available 24 hours a day. COSMO HENDRIX has been given the following list of patient education materials, prescriptions and follow-up instructions: Follow-up Instructions: With: Address: When: DANIELA MARIE [address] [phone] Business (1) In 3 days In the event that this physician does not participate in your insurance network, please consult with your insurance company to find a nearby participating provider. Patient Education Materials: Nausea and Vomiting, Adult A MESSAGE TO ALL PATIENTS REGARDING OPIOIDS PRESCRIPTION OPIOIDS: WHAT YOU NEED TO KNOW Prescription opioids can be used to help relieve qhfxpxin-ue-zmdkbo pain and are often prescribed following a surgery or injury, or for certain health conditions. These medications can be an important part of the treatment but also come with serious risks. It is important to work with your healthcare provider to make sure you are getting the safest, most effective care. WHAT ARE THE RISKS AND SIDE EFFECTS OF OPIOID USE? Prescription opioids carry serious risks of addiction and overdose, especially with prolonged use. An opioid overdose, often marked by slowed breathing, can cause sudden . The use of prescription opioids can have a number of side effects as well, even when taken as directed: ? Tolerance?meaning you might need to take more of the medication for the same pain relief ? Physical dependence?meaning you have symptoms of withdrawal when a medication is stopped ? Increased sensitivity to pain ? Constipation ? Nausea, vomiting, and dry mouth ? Sleepiness and dizziness ? Confusion ? Depression ? Low levels of testosterone that can result in lower sex drive, energy, and strength ? Itching and sweating RISKS ARE GREATER WITH: ? History of drug misuse, substance use disorder, or overdose ? Mental health conditions (such as depression or anxiety) ? Sleep apnea ? Older age (65 years and older) ? Avoid alcohol while taking prescription opioids. Also, unless specifically advised by your health care provider, medications to avoid include: ? Benzodiazepines (such as Xanax or Valium) ? Muscle relaxants (such as Soma or Flexeril) ? Hypnotics (such as Ambien or Lunesta) ? Other prescription opioids KNOW YOUR OPTIONS Talk to your health care provider about ways to manage your pain that don?t involve prescription opioids. Some of these options may actually work better and have fewer risks and side effects. Options may include: ? Pain relievers such as acetaminophen, ibuprofen, and naproxen ? Some medication that are also used for depression or seizures ? Physical therapy and exercise ? Cognitive behavioral therapy, a psychological, goal-directed approach, in which patients learn how to modify physical, behavioral, and emotional triggers of pain and stress. IF YOU ARE PRESCRIBED OPIOIDS FOR PAIN: ? Never take opioids in greater amounts or more often than prescribed. ? Follow up with your primary health care provider. o Work together to create a plan on how to manage your pain. o Talk about ways to help manage your pain that don?t involve prescription opioids. o Talk about any and all concerns and side effects. ? Help prevent misuse and abuse o Never sell or share prescription opioids. o Never use another person?s prescription opioids. ? Store prescription opioids in a secure place and out of reach of others (this may include visitors, children, friends, and family). ? Safely dispose of unused prescription opioids: Find your community drug take-back program or your pharmacy mail-back program, or flush them down the toilet, following guidance from the Food and Drug Administration (www.fda.gov/Drugs/R esourcesForYou). ? Visit www.cdc.gov/drugover dose to learn about the risks of opioids abuse and overdose. ? If you believe you may be struggling with addiction, tell your health care management coordinator and ask for guidance or call [facility]?S National Helpline at 4-693-147-HYFF. u Source: [place] Department of Health a (more content not included)... [facility] Influenza A&B Agon 2 Influenzae A Ag Negative Normal Negative [facility] Comment on above: Performed By: #### 1 [id number] ####[facility] [address] [place] [address] Influenzae B Ag Negative Normal Negative [facility] Comment on above: Result Comment: Test sensitivity and specificity vary for age group, specimen type, antigen types, and prevalence of disease. Test results must be evaluated in conjunction with other clinical data available to the physician. Individuals who received nasally administered Influenza A vaccine may have positive test results up to 3 days after vaccination. Performed By: #### 1 [id number], [id number] ####[facility] [address] [place] [address] MICRO OTHER TESTSOrdered By: Mart Alexandra on 04-05-2022 Influenzae A Ag Negative (04/05/22 1:21 AM) Normal Negative [place] [facility] Influenzae B Ag Negative (04/05/22 1:21 AM) Normal Negative [facility] Rapid COV Int NEG Ctl Pass (04/05/22 1:21 AM) Normal [facility] Rapid COV Int POS Ctl Pass (04/05/22 1:21 AM) Normal [facility] SARS-CoV+SARS-CoV-2 (COVID-19) Ag IA.rapid Ql (Resp) Not Detected (04/05/22 1:21 AM) Normal Not Detected [place] [facility] Rapid COVID Antigen ([facility])on 04-05-2022 Rapid COV Int NEG Ctl Pass Normal [facility] Comment on above: Performed By: #### 1 [id number] ####[facility] [address] [place] [address] Rapid COV Int POS Ctl Pass Normal [facility] Comment on above: Performed By: #### 1 [id number], [id number] ####[facility] [address] [place] [address] SARS-CoV+SARS-CoV-2 (COVID-19) Ag IA.rapid Ql (Resp) Not detected Normal Not Detected [facility] Comment on above: Result Comment: The emereitor? System for Rapid Detection of SARS-CoV-2 is a chromatographic digital immunoassay intended for the direct and qualitative detection of SARS-CoV-2 nucleocapsid antigens in nasal swabs from individuals who are suspected of COVID-19 by their healthcare provider within the first five days of the onset of symptoms. Negative results should be treated as presumptive, do not rule out SARS-CoV-2 infection and should not be used as the sole basis for treatment or patient management decisions, including infection control decisions. Negative results should be considered in the context of a patient?s recent exposures, history and the presence of clinical signs and symptoms consistent with COVID-19, and confirmed with a molecular assay, if necessary, for patient management. For in vitro diagnostic use. In the [place], only for use under an Emergency Use Authorization. In the [place], this test has not been FDA cleared or approved; this test has been authorized by FDA under an EUA for use by authorized laboratories; use by laboratories certified under the CLIA, 42 U.S.C. ?263a, that meet requirements to perform moderate, high, or waived complexity tests and at the Point of Care (POC), i.e., in patient care settings operating under a CLIA Certificate of Waiver, Certificate of Compliance, or Certificate of Accreditation. This test has been authorized only for the detection of proteins from SARS-CoV-2, not for any other viruses or pathogens; and, in the [facility], this test is only authorized for the duration of the declaration that circumstances exist justifying the authorization of emergency use of in vitro diagnostics for detection and/or diagnosis of the virus that causes COVID-19 under Section 564(b)(1) of the Act, 21 U.S.C. ? 360bbb-3(b)(1), unless the authorization is terminated or revoked sooner. Performed By: #### 1 [id number] ####[place] [address] ADMITTED TO INTENSIVE CARE UNIT FOR CONDITION OF INTEREST:FIND:PT: NO Normal [facility] Clinic Comment on above: Performed By: #### 1 [id number], [id number] ####[place] [address] EMPLOYED IN A HEALTHCARE SETTING:FIND:PT: NO [facility] Comment on above: Performed By: #### 1 [id number], [id number] ####[place] [address] FIRST TEST FOR CONDITION OF INTEREST:FIND:PT: Unknown [facility] Comment on above: Performed By: #### 1 [id number], [id number] ####[place] [address] HAS SYMPTOMS RELATED TO CONDITION OF INTEREST:FIND:PT: YES [facility] Comment on above: Performed By: #### 1 [id number], [id number] ####[place] [address] HOSPITALIZED FOR CONDITION OF INTEREST:FIND:PT: Unknown [facility] Comment on above: Performed By: #### 1 [id number], [id number] ####[id number] [place] [address] STATUS:FIND:PT: NO [facility] Comment on above: Performed By: #### 1 [id number], [id number] ####[address] [place] [address] RESIDES IN A [facility] CARE SETTING:FIND:PT: NO [facility] Comment on above: Performed By: #### 1 [id number], [id number] ####[place] [address] Coding Summary.on 03-09-2022 Coding Summary. CD:[id number] Gh0bWw+PGhlYWQ+PE1FV BWqR80qoAFurB5GV5lFG P5AQPHOPEMUHZ3QEM9te QL0MJmkL1AaiaGq KqxcvQKkBB07VOm4WQO3 sUzjJAazdU6duGXyS2n1 EtPuUF27aK25KTyhJGPy NmB8TyTcqjddvZYo R0vfBqArkNVyFjg+PHRh YmxlIHdpZHRoPScxMDAl OfIjuEgsKM5dFa5dRYUl LWNvbGxhcHNlOiBj d0joURDhWDelQB0grWzn W5GchRO0VTOtw5w4Hb78 dHI+THXwMYL9hVceSEeo e816OgXoc5nwRLY4 oGHiEFztAWC2V88lw8U4 JEHgWVBhKAE5rPY8mL2a yAnyhdbtX0GoaSZwTbC5 CTQ8kOZatV6vyCsx dvdqxB0oTxy+X41QXL0Q TRYITY7QPkj5F2JsNesu dHI+PJ69WTXvII10zETt nQPgu2ceeHd1SzTy OHJpCBJ8rGifGOhlv8My GCQtS24qgVKhq5Y3MUVw oWmdaOLlTrZgvFH4rJ6q DXkpeoxcv4lpears Jcndv3qqha61nH79M63z RXjpLXEvMNU1GLHoNZVe fJmjli1qhS3zYm0+IDxj p5gxs6rtyIz9WcQo VZDddjFqqRaxWKD8b2Ku Ff29N4BeyCoib4WdCiy6 mr89gMYlm5Y0wIL1ZEoi EIAkwD0wEYgwGxC8 OPUpSkHuiK16hYUnAIzv Uy1dbEcgmJqbQE7gXHYv zyfoQHEaqQ7kEXGrdQNo kBqwHU5tLRYfsdqn b415LcFkOZD4LNVquKXh Y2YxfT2jMiXvGSKbDNZn A2CpoREsRLphC035APps QlF9VZLysyEdA0Je WCYtgTvtOaV1u7I4Kn2K w6QdrmfjTMK7YJecCGA6 HjL7FkQpKcG2D3UeTqk3 WPZeqCoiVB1iB0Kn WCLewvndiztxnBH7IJTo PVJnfI00pBOrLTdvIz4q u7G7p845UMCwVNEbeN59 Eu6pkZngEUZpnQEM qD6lnqipw9bljeikDjJb FYMqEGe6NUu9FBLpsYhk KlPqLDG5VfM2RCH2yOUo vO5skResznkugA9o Oyc+W08qlW0aGVX8GVI9 qpizNYQxojCjPD63GK68 O9LyRkgliXWdxFQ+PGRp xmTglNkwZH4eDeKm s6clu8BoVKxqS3YeIPBc IXelIqy6FKZsKNV7vCQ0 aS6cJZFtZUeyk8T7wTV4 V1FrbgTlbz2ui0jf VYKaXWjoF80ksFBuk6C0 FSThiJT2LPMolRfdNqZc kI20Wiu+HWLzdAsoh3Wy Nkucc7wvr0vwvBg9 IjMwJSIgdmFsaWduPSJ0 m1FyCy92R00fHGypINTm LYTsPEEdPHLdtPycit4m dC7zAf6+PGNvbCB3 uXT5iE4uUIMwYiA7ODyb I126OaNfxSWzTwoua3pu i8ipqAf0TqCfQNYqtuEo zIsmJKR6z8SeKq67 W48aNIvkJQSnEBHwLXHb CQApiLkkzl2dxP2hJv4+ ZP2ch0kgkc82tT60wFS+ OFDnNQF1sKtcOAxc GUHybI8tZSkjJlJ3CAFd HwMrhO29hGWoTYfiGz8d nPricZezQY6kKCHyymhf u286PaNyk2izFIKo tSSvXZcrPVK8S62bm2B8 KNJzBBFkCBP9sNY0nW6l bGlnbjogbGVmdDsgdmVy zUoiDFckVRnlJ470 IHRvcDsnPlBhdGllbnQg ZmYvSPv0N5UxPhd3YUFr bTtpAC2fiMAnZZbqVo5g gFlerQwaLL0qSCRi kally896IjVav0wvVXXw kZIgCLpsMGS5Z42mq9Y8 CZMzYTSvAAH2eBK2lW6e bGlnbjogbGVmdDsg dxHweMoqBLklDFreS243 IHRvcDsnPkJpcnRoIERh hPU8JE53KF15nDMmb0W6 vKU1N0GmIPWkdxgx tiiicBJ0VUPtHPHxhJ58 Kv2leEtuKz4uDTAyJVX1 EAVndUOgI2AdzL5bVcUt KCBtXVIwL2PpySQk LZlkM380VIksGyS3QLJx xoDyO4GkQHJojOwzObS4 v0T4Dd9XV6C2XU59LU00 qNJaa6R9oWB3J0Eq BLFcdrhhctsstPY0GWVv KCDylJ23Hk8kuOlePi8z GTJkAQS0HIHcwFUpS0Ih qM8sNlHnVFTxSRKc J2WqfGEwSTcdM991IHms QtG3MTUbjlBgQ7JrELZw eMazGnR2l8Q5Br8DSPs4 PW00LE80zANnk0Q6 kDD7U0MmITAyvzeutgve rSH7CPKtABBinT50Rb2l gTgxYs8wPHQqKUQ8VAXu gKFvM9HspI6kWzLu HEQwFDWfO4IztSXbSRgp A521AGcbApM4EMKrruKs P9CyCNJaoNkdXtS0o3F6 Kg4OBYCtAT17BVA6 kOI9NW61ES64I8IxMvkf dGFibGU+PHRhYmxlIHdp ZHRoPScxMDAlJyBzdHls KK6gSh9dXEBzUNVb nEeqbHTbNcIra6tdHCUt MMyyOS0btToaS9PdqET6 HJDhb5w8Yc89I81uD7Wy dXA+KTTjaQQ6gGU7 tJ0vGtMyQzW5PAqeE274 CdJksRKrNbkab1hxm4yc bSl5BxO6DQOfmoSahNvc MAR7h9YhQd04L50a IHdpZHRoPSIxNSUiIHZh eNjmas5mgR1eEp4+PGNv aLT7rIG1hZ5kVqYyReV9 LIxxT219FsEvgMAs Afemk8zid6yrkOa8SsPh ABMlxuZixWrdQCU9r4Rs Ft83W9SznDmig1JyIkx5 yj79aUBrs2X1qJU4 K4PwHOPdyotcvVKhdScz KZ1xLVNuccnpQFUqjZ3w WDAwH2n0GnBwJgD7JGud J4TidbW8FZSqeMDd ZEvhIVC1L78zo9X4ORMh GHOsHAT9iCP3xP2zjQpl bjogbGVmdDsgdmVydGlj DTlvYVadB965PWOl sKlcGZVoqP5sHXTliKDx xDniXF1aDPLyajzhBukF Ro9ATbnrV8vXZMQPKAIX ZI02BZ50vRPrs3P9 hHA0I3IvJGCfhcmwbqhu wOE0WZYkQPFsxZ81fBXh TGncQx8an0R2l167EULr KSChpY03Mx3haEbn FJFbkQFTzD1norkzs6fo rfzxZxIyQNQcYHm0TSw7 JTOryOqxRqSySUR7QxO5 SCB6qHQxwJ1tsSkn ivrpyV6lNym+MDkvMDUv OKv9JCskkID+PHRkIHN0 pOhrYDdcBHPhiO1pAKGf J7e3RvVfEgP8PJig M3SoWAXeiilkAi94nH9w LoZaMaC7QXsuX8KczhU3 SSEjbWZuXLmeRTV1Q65q b9A5JJMkSWOhTSF3 nFI7wB1ojWgycumvuQQl dDsgdmVydGljYWwtYWxp T736YEQmaHiaKgE8XPnr XVZqGY44IR70yYEw p4W4pCZ7K7MyOEFyfmyx pluibQG1HOIeCAJooO15 pPGwVRkcYc0bb0T0c107 CSXhWBZhjS91Ly7u hBpdNDFooRRMkK0cinsp g2chrtraJnLzVXKwZRi2 VMw5TUWjmNxzEeDhULO1 HrO4BQD3rNGkoJ6k bIgcfhhyiU7vDzx+RmVt VJtaCD51VI38dOTlg3E9 jKB9Q0LpAIRlemgtntod eRY6OFYvQOCvuN53 uBOeBIcyMn0zs0G5m136 TXLzRPOjxC67Iz1ieVtk AIXiiSRIfH9ecziph3gz cjogIzAwMDAwMDt0 LUf8JEZhiSlgQeQwQCW6 VmC1MSM7sWDxbY9fuGjc cqbydD7zAdr+DO8izdlf iqA7IM29OR47G0Ye PjwvdGFibGU+PHRhYmxl IHdpZHRoPScxMDAlJyBz zJcoXR2dKx7uIJIdLRPp kMqfcHGcMbRdu6wa RMYlKKgoMC7tlGekA1Xu fKL3LTEsi5j9Jc33R06j M6ObcEE+FCKdgAS4oTG5 fJ0cVnPcZcN8AQgc U207BqKdePKpOgfeo8dv u8dniDi8SqDjKGQpyzEd xFilLTA9e6XrDi43P17s IHdpZHRoPSIyMCUi OCFtbYomhu3cnA3wVh7+ RCNqmLL6gZQ3hN8yPaCu LaX3AXnlI407PxHkoMFa HnftI67uU1PczJG+ JYFyNyy4YSAmzUieWT0o aACiMUgaNe1hHCN2LoNt MuLaOXeyI4XqQPJojxow okjecDW3FUNrEAVq mY35Gy8xiZovYn7aRXLv NST3FYCfxXZcI0IvxA8z SnUiZWMsCXXqK7QvzXZv DJjrW407OQyxAoO4 JKGdugEdS8OqYLXqbNhk HeV3d2V1Yl6OeIxbnQEw OF6zExOiMUa6Y3UnPcr0 KFYdeXtkYS1ivVYb IDtoKm8qsDbbjTksER6s FJAtlwenl456NeJsn4uk TYZhzJOlMRpbKTF5T26h y9Z6MBMnQCZfRSD3 pCJ8dA5cfTyxvlejiHMf dDsgdmVydGljYWwtYWxp P778HJCkrMhzAlSLIsz4 M4PzSak7RRXnpUmi OF9epYDeEOoxUr4khShf oThwGU4rRFMflwibp981 RhUge4jzJMHemBYzKHuv AGQ5B15os3D4LFBz ZADbRSD7yIT4fK1zrKiw bjogbGVmdDsgdmVydGlj TVugYZihS955IQFigQnz Pw5VSnr6A5MkOpz9 EWUrwEqtLP0oiBPrEKpz Io3snUqmzHpiPG4hMWIj jgxrc712LcHkh6atIVPd bOXpXMdeTJK4H76m w8S6JZVnDUPxIYR6pLY0 aY7ynAvomnlyxKXryMgl muWpkMoyAPppUVvsC498 IHRvcDsnPlBheWVy OjwvdGQ+IU87la42G7Ft VrmlBnc7XEPoRAX9sCO2 pY1dFJQgBXncq9P5uXR4 L9NcdlXurn7bw5ie YXBz (more content not included)... [facility] Consent for Treatmenton 02-15 Consent for Treatment [id number] #[id number]:127 [facility] Discharge Instructionson Discharge Instructions [id number]#1.00CD:127 [facility] ED Clinical Summaryon 2021 ED Clinical Summary [address] [address] ED Clinical Summary Person Information Name: COSMO HENDRIX [facility] Age: 26 Years : 1995 Sex: Female Language: Filipino PCP: DANIELA MARIE MD Marital Status: Phone: [phone] Visit Id: Visit Reason: Foot pain-swelling; LEFT FOOT PAIN Speciality: Acuity: 4 Enc Type: Emergency Med Service: Emergency Arrival: 03/08/2022 01:12:20 Discharge: 03/08/2022 02:28:53 LOS: 000 01:16 Checkin: 03/08/2022 01:12:20 Checkout: 03/08/2022 02:28:53 Dispo Type: Home (Routine DC) EVENTS: Event Name Event Status Request Date/Time Start Date/Time Complete Date/Time Arrive Complete 03/08/2022 01:12:20 03/08/2022 01:12:20 03/08/2022 01:12:20 Document Home Meds Request 03/08/2022 01:12:20 Triage Complete 03/08/2022 01:12:20 03/08/2022 01:20:47 03/08/2022 01:20:47 Bed Assign Complete 03/08/2022 01:21:19 03/08/2022 01:21:19 03/08/2022 01:21:19 Dr Exam Complete 03/08/2022 01:21:19 03/08/2022 01:21:50 03/08/2022 01:21:50 RN Exam Complete 03/08/2022 01:21:19 03/08/2022 01:38:03 03/08/2022 01:38:03 X-Ray Complete 03/08/2022 01:21:40 03/08/2022 01:44:46 03/08/2022 01:57:04 Registration Complete 03/08/2022 01:21:50 03/08/2022 02:07:12 03/08/2022 02:07:12 Wet Read Request 03/08/2022 01:57:04 Reg Complete Request 03/08/2022 02:07:12 Reg Bed Request Complete 03/08/2022 02:07:12 03/08/2022 02:07:12 03/08/2022 02:07:12 Discharge Complete 03/08/2022 02:10:54 03/08/2022 02:28:58 03/08/2022 02:28:58 Transfer Complete 03/08/2022 02:28:58 03/08/2022 02:28:58 03/08/2022 02:28:58 ADDRESS: [facility] [address] [facility] [phone] PHYS DOC NOTES: MEDICAL INFORMATION: Prescriptions Given: PATIENT EDUCATION INFORMATION: Instructions: RICE Therapy for Routine Care of Injuries; Foot Sprain Follow up: With: Address: When: DANIELA Ochoa [facility] [place] [address] Business (1) In 3 days 03/11/2022 Comments: Call the office of your primary care doctor to arrange for follow-up within the above-stated timeframe. Follow-up with your primary care doctor about this ED visit. You should review your labs, imaging, and diagnoses from this ED visit with your primary care physician. If you were prescribed medications you should discuss possible side-effects and drug interactions with your pharmacist. Call 911 or go to the nearest Emergency Department if you develop any new or worsening symptoms. DIAGNOSIS: Strain of foot [facility] ED Note-Nursingon 03-08-2022 ED Note-Nursing Provider at chair side. [facility] ED Note-Physicianon 03-08-20 ED Note-Physician Basic Information Time Seen: Kian Rodriguez DO 03/08/2022 01:21 Chief Complaint left foot pain [place] History of Present Illness 26-year-old female to the emergency department chief complaint of pain in her left midfoot after [place] the [place]. Pain is worse with ambulation. Alleviated with rest. No specific injury. No history of injuries to that foot. No therapies tried at home. Review of Systems A 10 point review of systems is negative except as noted above. Medical and Surgical History: Reviewed and noted Social history: Lives at home Tobacco: Denies Physical Exam Vitals & Measurements T: 36.8 ?C(Oral) HR: 81(Peripheral) RR: 16 BP: 123/73 SpO2: 98% HT: 170.0 cm HT: 170 cm WT: 95.0 kg WT: 95 kg BMI: 32.87 VITALS: I have reviewed the triage vital signs. GENERAL: Well developed, well appearing adult in no acute distress. NEURO: Alert and oriented. Moves all extremities. Face is symmetric and expressive. EYES: PERRL. No scleral icterus or conjunctival injection. No discharge. HENT: Normocephalic, atraumatic. Hearing is grossly intact. Nares grossly patent and without discharge. Mucous membranes moist. LLE: DP and PT pulse intact. Sensation intact over the foot. No specific tenderness. Arches are maintained. Compartments are soft. Able to bear weight. SKIN: Warm and dry. Normal turgor. No rash or lesions appreciated. PSYCH: Mood, affect, and interaction is appropriate to the setting. Medical Decision Making Well-appearing 26-year-old female foot pain. Left lower extremity is neurovascularly intact. X-rays ordered to rule out stress fracture. Patient agrees with this plan. X-ray without acute fracture or dislocation. She is started to use Tylenol at home. Rest, ice. Patient was discharged home. Assessment/Plan Strain of foot (S96.919A: Strain of unspecified muscle and tendon at ankle and foot level, unspecified foot, initial encounter) Orders: XR Foot 3+ Views Left Disposition Plan Patient Discharge Condition Stable Discharge Disposition Home Discharge Prescription List Prescriptions No active prescription medications Follow-up With When Contact Information DANIELA CYNTHIA In 3 days 03/11/[address] [place] [id number] (1) Additional Instructions: Call the office of your primary care doctor to arrange for follow-up within the above-stated timeframe. Follow-up with your primary care doctor about this ED visit. You should review your labs, imaging, and diagnoses from this ED visit with your primary care physician. If you were prescribed medications you should discuss possible side-effects and drug interactions with your pharmacist. Call 911 or go to the nearest Emergency Department if you develop any new or worsening symptoms. Patient Education RICE Therapy for Routine Care of Injuries Foot Sprain Problem List/Past Medical History Ongoing Bipolar disorder, mixed Historical No qualifying data Medications Inpatient No active inpatient medications Home No active home medications Allergies No Known Allergies Social History Alcohol - Denies Alcohol Use, 11/04/2021 Current, 02/05/2022 Substance Abuse - Denies Substance Abuse, 11/04/2021 Current, 02/05/2022 Tobacco - Denies Tobacco Use, 11/04/2021 Never (less than 100 in lifetime) Tobacco Use:., 02/05/2022 Lab Results No qualifying data available. Diagnostic Results XR Foot 3+ Views Left * Preliminary * 03/08/22 02:07:35 NEGATIVE: No fracture, dislocation or other acute abnormality Read By: Kian Rodriguez DO [facility] Comment on above: Result Comment: Elec tronically Signed By: Kian Rodriguez DO\.br\Date and Time Signed: 03/08/22 02:12 EDT ED Patient Education Noteon 03-08-2022 ED Patient Education Note Orthopedics RICE Therapy for Routine Care of Injuries The routine care of many injuries includes rest, ice, compression, and elevation (RICE therapy). RICE therapy is often recommended for injuries to soft tissues, such as muscle strain, sprains, bruises, and overuse injuries. It can also be used for some bone injuries. Using RICE therapy can help to relieve pain and lessen swelling. Supplies needed: ? Ice. ? Plastic bag. ? Towel. ? Elastic bandage. ? Pillow or pillows to raise (elevate) the injured body part. How to care for your injury with RICE therapy Rest Rest your injury. This may help with the healing process. Rest usually involves limiting your normal activities and not using the injured part of your body. Generally, you can return to your normal activities when your health care provider says it is okay and you can do them without much discomfort. If you rest the injury too much, it may not heal as well. Some injuries heal better with early movement instead of resting for too long. Talk with your health care provider about how you should limit your activities and whether you should start sined-yg-ravzyx exercises for your injury. Ice Ice your injury to lessen swelling and pain. Do not apply ice directly to your skin. ? Put ice in a plastic bag. ? Place a towel between your skin and the bag. ? Leave the ice on for 20 minutes, 2?3 times a day. Use ice on as many days as told by your health care provider. Compression Put pressure (compression) on your injured area to control swelling, give support, and help with discomfort. Compression may be done with an elastic bandage. If an elastic bandage has been applied, follow these general tips: ? Use the bandage as directed by the maker of the bandage that you are using. ? Do not?wrap the bandage too tightly. That may block (cut off) circulation in the arm or leg in the area below the bandage. ? If part of your body beyond the bandage becomes blue, numb, cold, swollen, or more painful, your bandage is probably too tight. If this occurs, remove your bandage and reapply it more loosely. ? Remove and reapply the bandage every 3?4 hours or as told by your health care provider. ? See your health care provider if the bandage seems to be making your problems worse rather than better. Elevation Elevate your injured area to lessen swelling and pain. If possible, elevate your injured area at or above the level of your heart or the center of your chest. Contact a health care provider if: ? Your pain and swelling continue. ? Your symptoms are getting worse rather than improving. Having these problems may mean that you need further evaluation or imaging tests, such as X-rays or an MRI. Sometimes, X-rays may not show a small broken bone (fracture) until days after the injury happened. Make a follow-up appointment with your health care provider. Ask your health care provider, or the department that is doing the imaging test, when your results will be ready. Get help right away if: ? You have sudden severe pain at or below the area of your injury. ? You have redness or increased swelling around your injury. ? You have tingling or numbness at or below the area of your injury and it does not improve after you remove the elastic bandage. Summary ? The routine care of many injuries includes rest, ice, compression, and elevation (RICE therapy). Using RICE therapy can help to relieve pain and lessen swelling. ? RICE therapy is often recommended for injuries to soft tissues, such as muscle strain, sprains, bruises, and overuse injuries. It can also be used for some bone injuries. ? Seek medical care if your pain and swelling continue or if your symptoms are getting worse rather than improving. This information is not intended to replace advice given to you by your health care provider. Make sure you discuss any questions you have with your health care provider. Document Released: 01/15/2002 Document Revised: 06/23/2018 Document Reviewed: 06/23/2018 [employer] Patient Education ? 2020 [employer] Foot Sprain A foot sprain is an injury to one of the strong bands of tissue (ligaments) that connect and support the bones in your feet. The ligament can be stretched too much and tear. A tear can be either partial or complete. The severity of the sprain depends on how much of the ligament was damaged or torn. What are the causes? This condition is usually caused by suddenly twisting or pivoting your foot. What increases the risk? This injury is more likely to occur in people who: ? Play a sport, such as basketball or football. ? Exercise or play a sport without warming up. ? Start a new workout or sport. ? Suddenly increase how long or hard they exercise or play a sport. ? Have previously injured their foot or ankle. What are the signs or symptoms? Symptoms of this conditio (more content not included)... [facility] ED Patient Summaryon 022 ED Patient Summary [address] [address] Patient Discharge Instructions Person Information Name: COSMO HENDRIX Age: 26 Years Arrival Date: 03/08/2022 01:12:20 Discharge Diagnosis: Strain of foot Primary Care Physician: DANIELA MARIE MD Provider Information Primary Provider: Kian Rodriguez DO [employer] Operator:None The exam and treatment you received in the Emergency Department were for an urgent problem and are not intended as complete care. It is important that you follow up with a doctor, nurse practitioner, or physician?s nursing home assistant for ongoing care. If your symptoms become worse or you do not improve as expected and you are unable to reach your usual health care provider, you should return to the Emergency Department. We are available 24 hours a day. HENDRIX, COSMO Wes has been given the following list of patient education materials, prescriptions and follow-up instructions: Follow-up Instructions: With: Address: When: DANIELA MARIE [address] [place] [id number] [facility] (1) In 3 days 03/11/2022 Comments: Call the office of your primary care doctor to arrange for follow-up within the above-stated timeframe. Follow-up with your primary care doctor about this ED visit. You should review your labs, imaging, and diagnoses from this ED visit with your primary care physician. If you were prescribed medications you should discuss possible side-effects and drug interactions with your pharmacist. Call 911 or go to the nearest Emergency Department if you develop any new or worsening symptoms. In the event that this physician does not participate in your insurance network, please consult with your insurance company to find a nearby participating provider. Patient Education Materials: RICE Therapy for Routine Care of Injuries; Foot Sprain A MESSAGE TO ALL PATIENTS REGARDING OPIOIDS PRESCRIPTION OPIOIDS: WHAT YOU NEED TO KNOW Prescription opioids can be used to help relieve frzlnlca-fh-wxujfl pain and are often prescribed following a surgery or injury, or for certain health conditions. These medications can be an important part of the treatment but also come with serious risks. It is important to work with your healthcare provider to make sure you are getting the safest, most effective care. WHAT ARE THE RISKS AND SIDE EFFECTS OF OPIOID USE? Prescription opioids carry serious risks of addiction and overdose, especially with prolonged use. An opioid overdose, often marked by slowed breathing, can cause sudden . The use of prescription opioids can have a number of side effects as well, even when taken as directed: ? Tolerance?meaning you might need to take more of the medication for the same pain relief ? Physical dependence?meaning you have symptoms of withdrawal when a medication is stopped ? Increased sensitivity to pain ? Constipation ? Nausea, vomiting, and dry mouth ? Sleepiness and dizziness ? Confusion ? Depression ? Low levels of testosterone that can result in lower sex drive, energy, and strength ? Itching and sweating RISKS ARE GREATER WITH: ? History of drug misuse, substance use disorder, or overdose ? Mental health conditions (such as depression or anxiety) ? Sleep apnea ? Older age (65 years and older) ? Avoid alcohol while taking prescription opioids. Also, unless specifically advised by your health care provider, medications to avoid include: ? Benzodiazepines (such as Xanax or Valium) ? Muscle relaxants (such as Soma or Flexeril) ? Hypnotics (such as Ambien or Lunesta) ? Other prescription opioids KNOW YOUR OPTIONS Talk to your health care provider about ways to manage your pain that don?t involve prescription opioids. Some of these options may actually work better and have fewer risks and side effects. Options may include: ? Pain relievers such as acetaminophen, ibuprofen, and naproxen ? Some medication that are also used for depression or seizures ? Physical therapy and exercise ? Cognitive behavioral therapy, a psychological, goal-directed approach, in which patients learn how to modify physical, behavioral, and emotional triggers of pain and stress. IF YOU ARE PRESCRIBED OPIOIDS FOR PAIN: ? Never take opioids in greater amounts or more often than prescribed. ? Follow up with your primary health care provider. o Work together to create a plan on how to manage your pain. o Talk about ways to help manage your pain that don?t involve prescription opioids. o Talk about any and all concerns and side effects. ? Help prevent misuse and abuse o Never sell or share prescription opioids. o Never use another person?s prescription opioids. ? Store prescription opioids in a secure place and out of reach of others (this may include visitors, children, friends, and family). ? Safely dispose of unus (more content not included)... [facility] XR Foot 3+ Views Lefton 02-15 XR Foot 3+ Views Left Exam Date/Time: 03/08/2022 01:57 EDT Reason for Exam: Pain, Traumatic Report IMPRESSION: No acute findings. EXAMINATION/TECHNIQU E: XR Foot 3+ Views Left HISTORY: Left foot pain. COMPARISON: None RESULT: No acute fracture. No dislocation. Joint spaces appear maintained. No other significant abnormality. FINAL REPORT Dictated: 03/08/2022 8:08 am Tim Weinberg MD Signed (Electronic Signature): 03/08/2022 8:08 am Signed by: Tim Weinberg MD Transcribed by: MIGUEL Technologist: RIVERA [facility] Vital Signs Date Time Vital Sign Value Performing Clinician Keo hilton 11-06-2022 12:55-0500 Body temperature 98.06 [degF] Kian Rodriguez [facility] 11-06-2022 12:55-0500 Diastolic blood pressure 73 mm[Hg] Kian Rodriguez [facility] 11-06-2022 12:55-0500 Heart rate 90 /min Kian Rodriguez [facility] 11-06-2022 12:55-0500 Respiratory rate 16 /min Kian Rodriguez [facility] 11-06-2022 12:55-0500 SaO2% (BldA) [Mass fraction] 96 % Kian Rodriguez [facility] 11-06-2022 12:55-0500 Systolic blood pressure 117 mm[Hg] Kian Rodriguez [facility] 10-17-2022 21:38-0500 Body temperature 97.88 [degF] Jhonatan Chantelle [facility] 10-17-2022 21:38-0500 Diastolic blood pressure 69 mm[Hg] Jhonatan Chantelle [facility] 10-17-2022 21:38-0500 Heart rate 92 /min Jhonatan Chantelle [facility] 10-17-2022 21:38-0500 Respiratory rate 16 /min Jhonatan Chantelle [facility] 10-17-2022 21:38-0500 SaO2% (BldA) [Mass fraction] 96 % Jhonatan Chantelle [facility] 10-17-2022 21:38-0500 Systolic blood pressure 107 mm[Hg] Jhonatan Chantelle [facility] 10-06-2022 00:00-0500 Body temperature 98.6 [degF] Jhonatan Chantelle [facility] 10-06-2022 00:00-0500 Diastolic blood pressure 68 mm[Hg] Jhonatan Chantelle [facility] 10-06-2022 00:00-0500 Heart rate 90 /min Jhonatan Chantelle [facility] 10-06-2022 00:00-0500 Mean blood pressure 82 mm[Hg] Jhonatan Chantelle [facility] 10-06-2022 00:00-0500 Respiratory rate 17 /min Jhonatan Chantelle [facility] 10-06-2022 00:00-0500 SaO2% (BldA) [Mass fraction] 95 % Jhonatan Chantelle [facility] 10-06-2022 00:00-0500 Systolic blood pressure 111 mm[Hg] Jhonatan Chantelle [facility] 10-05-2022 23:00-0500 Diastolic blood pressure 76 mm[Hg] Jhonatan Chantelle [facility] 10-05-2022 23:00-0500 Heart rate 100 /min Jhonatan Chantelle [facility] 10-05-2022 23:00-0500 Mean blood pressure 87 mm[Hg] Jhonatan Chantelle [facility] 10-05-2022 23:00-0500 Systolic blood pressure 110 mm[Hg] Jhonatan Chantelle [facility] 10-05-2022 22:22-0500 Body temperature 98.78 [degF] Jhonatan Chantelle [facility] 10-05-2022 22:22-0500 Diastolic blood pressure 72 mm[Hg] Jhonatan Chantelle [facility] 10-05-2022 22:22-0500 Heart rate 103 /min Jhonatan Chantelle [facility] 10-05-2022 22:22-0500 Respiratory rate 16 /min Jhonatan Chantelle [facility] 10-05-2022 22:22-0500 SaO2% (BldA) [Mass fraction] 94 % Jhonatan Chantelle [facility] 10-05-2022 22:22-0500 Systolic blood pressure 117 mm[Hg] Jhonatan Chantelle [facility] 08-19-2022 00:54-0400 Body temperature 97.88 [degF] Jhonatan Chantelle [facility] 08-19-2022 00:54-0400 Diastolic blood pressure 64 mm[Hg] Jhonatan Chantelle [facility] 08-19-2022 00:54-0400 Heart rate 71 /min Jhonatan Chantelle [facility] 08-19-2022 00:54-0400 Respiratory rate 16 /min Jhonatan Chantelle [facility] 08-19-2022 00:54-0400 SaO2% (BldA) [Mass fraction] 99 % Jhonatan Chantelle [facility] 08-19-2022 00:54-0400 Systolic blood pressure 110 mm[Hg] Jhonatan Chantelle [facility] 04-04-2022 22:16-0400 Body temperature 98.6 [degF] Jhonatan Chantelle [facility] 04-04-2022 22:16-0400 Diastolic blood pressure 69 mm[Hg] Jhonatan Chantelle [facility] 04-04-2022 22:16-0400 Heart rate 76 /min Jhonatan Chantelle [facility] 04-04-2022 22:16-0400 Respiratory rate 18 /min Jhonatan Chantelle [facility] 04-04-2022 22:16-0400 SaO2% (BldA) [Mass fraction] 100 % Jhonatan Chantelle [facility] 04-04-2022 22:16-0400 Systolic blood pressure 108 mm[Hg] Jhonatan Chantelle [facility] 03-08-2022 01:16-0400 Body temperature 98.24 [degF] Kian Rodriguez [facility] 03-08-2022 01:16-0400 Diastolic blood pressure 73 mm[Hg] Kian Rodriguez [facility] 03-08-2022 01:16-0400 Heart rate 81 /min Kian Rodriguez [facility] 03-08-2022 01:16-0400 Respiratory rate 16 /min Kian Rodriguez [facility] 03-08-2022 01:16-0400 SaO2% (BldA) [Mass fraction] 98 % Kian Rodriguez [facility] 03-08-2022 01:16-0400 Systolic blood pressure 123 mm[Hg] Kian Rodriguez [facility] 02-05-2022 22:07-0400 Body temperature 99.14 [degF] Jhonatan Chantelle [facility] 02-05-2022 22:07-0400 Diastolic blood pressure 84 mm[Hg] Jhonatan Chantelle [facility] 02-05-2022 22:07-0400 Heart rate 82 /min Jhonatan Chantelle [facility] 02-05-2022 22:07-0400 Respiratory rate 18 /min Jhonatan Chantelle [facility] 02-05-2022 22:07-0400 SaO2% (BldA) [Mass fraction] 95 % Jhonatan Chantelle [facility] 02-05-2022 22:07-0400 Systolic blood pressure 115 mm[Hg] Jhonatan Chantelle [facility] 02-05-2022 20:19-0400 Body temperature 98.06 [degF] Jhonatan Chantelle [facility] 02-05-2022 20:19-0400 Diastolic blood pressure 69 mm[Hg] Jhonatan Chantelle [facility] 02-05-2022 20:19-0400 Heart rate 92 /min [facility] Chantelle [facility] 02-05-2022 20:19-0400 Respiratory rate 16 /min [facility] Chantelle [facility] 02-05-2022 20:19-0400 SaO2% (BldA) [Mass fraction] 98 % [facility] Chantelle [facility] 02-05-2022 20:19-0400 Systolic blood pressure 115 mm[facility] Encounters Encounter Date Encounter Type Care Provider Facility Start: 06-05-2024 End: 06-05-2024 ambulatory BERNICE CUCO Not Available Start: 05-14-2024 End: 05-14-2024 ambulatory LAURI WARE Not Available Start: 04-24-2024 End: 04-24-2024 ambulatory CARLOS D DOLCE Not Available Start: 03-28-2024 End: 03-28-2024 ambulatory CARLOS DOLCE Not Available Start: 03-27-2024 End: 03-27-2024 ambulatory BERNICE CUCO Not Available Start: 02-20-2024 End: 02-20-2024 ambulatory CARLOS D DOLCE Not Available Start: 01-11-2024 End: 01-11-2024 ambulatory BERNICE CUCO Not Available Start: 12-22-2023 End: 12-22-2023 ambulatory BERNICE UCCO Not Available Start: 11-25-2023 Bamboo flowsheet Carlos D Dolce DPM FACFAS Work Phone: [facility] Start: 11-25-2023 Bamboo flowsheet Carlos D Dolce DPM FACFAS Work Phone: [facility] Start: 11-25-2023 End: 11-25-2023 ambulatory CARLOS France DOLCE Not Available Start: 11-11-2023 End: 11-11-2023 ambulatory CARLOS [place] DOLCE Not Available Start: 02-04-2023 End: 02-05-2023 ambulatory BRANDEN PAREDESALLYSON Facility:[facility] Start: 02-04-2023 End: 02-04-2023 Lab Drop off [facility] PAR[facility] Start: 01-26-2023 End: 01-26-[address] SHYAM MALIN . Facility: Start: 01-04-2023 End: 01-05-2023 ambulatory Yumiko PIEDAD PAREDESALLYSON Facility:[facility] Start: 01-04-2023 End: 01-04-2023 Patient encounter procedure [facility] Start: 11-17-2022 End: 11-25-2022 Pre-admission assessment [facility] Start: 11-11-2022 End: 11-12-2022 ambulatory [facility] PIED[facility] YARELI Facility:[facility] Start: 11-11-2022 End: 11-11-2022 Lab Drop off [facility] Start: 11-06-2022 End: 11-06-2022 Emergency department patient visit Kian Rodriguez Facility:[facility] Start: 11-06-2022 End: 11-06-2022 Emergency department patient visit Kian Rodriguez [facility] Start: 10-17-2022 End: 10-18-2022 Emergency department patient visit Jhonatan Lockhart Facility:[facility] Start: 10-17-2022 End: 10-17-2022 Emergency department patient visit Jhonatan Lockhart [facility] Start: 10-05-2022 End: 10-06-2022 Emergency department patient visit Jhonatan Lockhatr Facility:[facility] Start: 10-05-2022 End: 10-06-2022 Emergency department patient visit Jhonatan Lockhart [facility] Start: 08-19-2022 End: 08-19-2022 Emergency department patient visit Jhonatan Lockhart Facility:[facility] Start: 08-19-2022 End: 08-19-2022 Emergency department patient visit Jhonatan Lockhart [facility] Start: 04-05-2022 End: 04-05-2022 Emergency department patient visit Jhonatan Lockhart Facility:[facility] Start: 04-04-2022 End: 04-05-2022 Emergency department patient visit Jhonatan Lockhart [facility] Start: 03-08-2022 End: 03-08-2022 Emergency department patient visit Kian Rodriguez Facility:[facility] Start: 03-08-2022 End: 03-08-2022 Emergency department patient visit Kian Rodriguez [facility] Start: 02-05-2022 End: 02-05-2022 Emergency department patient visit Jhonatan Lockhart [facility] Plan of Treatment Date Care Activity Detail Author Start: 11-25-2023 End: 11-25-2023 Patient encounter procedure 11/25/2023 9:30 AM EST Office Visit [facility] [address] [facility] [place] [address] Carlos Burnham, DPM FACFAS [address] [facility] [place] [address] Arrived [facility] Comment on above: Arrived Start: 06-17-2023 Influenza vaccination Influenza Vacc ine (#1) [facility] Payers Date Payer Category Payer Unknown BCBS BCBS xxxxxx [id number] 2023-Present [phone] [address] [place] [address] [id number] 2023 Unknown [id number] 2022 Unknown [id number] 1995 Unknown [id number] [id number] 1995 Unknown [id number] 2.16.840.1.391756.3.579.2.727 1995 Unknown [id number] 2.16.840.1.863241.3.579.2.727 1995 Unknown [id number] 2.16.840.1.323360.3.579.2.727 1995 Unknown [id number] 2.16.840.1.880951.3.579.2.727 1995 Unknown [id number] 2.16.840.1.033256.3.579.2.727 1995 Unknown [id number] 2.16.840.1.345722.3.579.2.727 1995 Unknown [id number] 2.16.840.1.140688.3.579.2.727 1995 Unknown [id number] 2.16.840.1.711328.3.579.2.727 1995 Unknown [id number] 2.16.840.1.674013.3.579.2.727 1995 Unknown [id number] 2.16.840.1.433441.3.579.2.9 1995 Unknown [id number] 2.16.840.1.275754.3.579.2.9 1995 Unknown [id number] 2.16.840.1.900430.3.579.2.9 1995 Unknown [id number] 2.16.840.1.636081.3.579.2.1258 1995 Unknown [id number] 2.16.840.1.717405.3.579.2.9 1995 Unknown [id number] 2.16.840.1.069919.3.579.2.1258 1995 Unknown [id number] 2.16.840.1.461476.3.579.2.9 1995 Unknown [id number] 2.16.840.1.935448.3.579.2.1258 1995 Unknown [id number] 2.16.840.1.461715.3.579.2.9 1995 Unknown [id number] 2.16.840.1.567446.3.579.2.9 1959 Unknown [id number] Social History Date Type Detail Facility Start: 02-05-2022 End: 09-22-2023 Tobacco smoking status Never smoked tobacco (finding) [facility] Start: 11-11-2023 Sex Assigned At Female F [facility] Start: 11-11-2023 Alcohol intake Lifetime non-d anna (finding) [facility] Start: 11-11-2023 History of Social function [facility] Start: 1995 Sex Assigned At Not on file N S [facility] Functional Status Date Assessment Result Facility 11-06-2022 Functional Status N/A [facility] 10-17-2022 Functional Status N/A [facility] 10-05-2022 Functional Status Yes [facility] 08-19-2022 Functional Status N/A [facility] 04-04-2022 Functional Status N/A [facility] Clinical Notes 02-05-2022 to 11-06-2022 Note Date & Type Note Facility 11-06-2022 Hospital Discharg e instructions Patient Education 11/06/2022 13:12:25 Hives, Nbkp-jy-Jvwh Hives Hives are itchy, red, swollen areas on your skin. Hives can show up on any part of your body. Hives often fade within 24 hours (acute hives). New hives can show up after old ones fade. This can go on for many days or weeks (chronic hives). Hives do not spread from person to person (are not contagious). Hives are caused by your body's response to something that you are allergic to (allergen). These are sometimes called triggers. You can get hives right after being around a trigger, or hours later. What are the causes? Allergies to foods. Insect bites or stings. Pollen. Pets. Latex. Chemicals. Spending time in sunlight, heat, or cold. Exercise. Stress. Some medicines. Viruses. This includes the common cold. Infections caused by germs (bacteria). Allergy shots. Blood transfusions. Sometimes, the cause is not known. What increases the risk? Being a woman. Being allergic to foods such as: ?Warren fruits. ?Milk. ?Eggs. ?Peanuts. ?Tree nuts. ?Shellfish. Being allergic to: ?Medicines. ?Latex. ?Insects. ?Animals. ?Pollen. What are the signs or symptoms? Raised, itchy, red or white bumps or patches on your skin. These areas may: ?Get large and swollen. ?Change in shape and location. ?Stand alone or connect to each other over a large area of skin. ?Sting or hurt. ?Turn white when pressed in the center (dylan). In very bad cases, your hands, feet, and face may also get swollen. This may happen if hives start deeper in your skin. How is this treated? Treatment for this condition depends on your symptoms. Treatment may include: Using cool, wet cloths (cool compresses) or taking cool showers to stop the itching. Medicines that help: ?Relieve itching (antihistamines). ?Reduce swelling (corticosteroids). ?Treat infection (antibiotics). A medicine (omalizumab) that is given as a shot (injection). Your doctor may prescribe this if you have hives that do not get better even after other treatments. In very bad cases, you may need a shot of a medicine called epinephrineto prevent a life-threatening allergic reaction (anaphylaxis). Follow these instructions at home: Medicines Take or apply mjtg-ggk-yqeiumr and prescription medicines only as told by your doctor. If you were prescribed an antibiotic medicine, use it as told by your doctor. Do not stop using it even if you start to feel better. Skin care Apply cool, wet cloths to the hives. Do not scratch your skin. Do not rub your skin. General instructions Do not take hot showers or baths. This can make itching worse. Do not wear tight clothes. Use sunscreen and wear clothes that cover your skin when you are outside. Avoid any triggers that cause your hives. Keep a journal to help track what causes your hives. Write down: ?What medicines you take. ?What you eat and drink. ?What products you use on your skin. Keep all follow-up visits as told by your doctor. This is important. Contact a doctor if: Your symptoms are not better with medicine. Your joints hurt or are swollen. Get help right away if: You have a fever. You have pain in your belly (abdomen). Your tongue or lips are swollen. Your eyelids are swollen. Your chest or throat feels tight. You have trouble breathing or swallowing. These symptoms may be an emergency. Do not wait to see if the symptoms will go away. Get medical help right away. Call your local emergency services (911 in the [place] Do not drive yourself to the hospital. Summary Hives are itchy, red, swollen areas on your skin. Treatment for this condition depends on your symptoms. Avoid things that cause your hives. Keep a journal to help track what causes your hives. Take and apply olxi-wlb-sgobbvs and prescription medicines only as told by your doctor. Keep all follow-up visits as told by your doctor. This is important. This information is not intended to replace advice given to you by your health care provider. Make sure you discuss any questions you have with your health care provider. Document Released: 07/12/2009 Document Revised: 04/18/2019 Document Reviewed: 04/18/2019 [employer] Patient Education 2020 [employer]. Follow Up Care 11/06/2022 12:52:51 With:Yahir Yu MD, [facility], [facility] Address: [address] [place] [phone] When:11/09/2022 [facility] 11-06-2022 Evaluation + Plan note Extrac grupo from: Title:ED Note Author:Radha Buckley PA-C Date :11/06/22 1. Rash of body (R21: Rash a nd other nonspecific skin eruption) Orders: dexamethasone, 10 mg = 2.5 mL, Injection, Oral, Once, Stop date 11/06/22 13:11:00 EST, STAT, Start date 11/06/22 13:11:00 EST, 11/06/22 13:11:00 EST [facility]01-02-2023 Hospital Discharge instructions Patient Education 10/17/2022 22:34:09 Hives, Tgfp-wc-Arje Hives Hives are itchy, red, swollen areas on your skin. Hives can show up on any part of your body. Hivesoften fade within 24 hours (acute hives). New hives can show up after old ones fade. This can go onfor many days or weeks (chronic hives). Hives do not spread from person to person (are not contagious). Hives are caused by your body's response to something that you are allergic to (allergen). These are sometimes called triggers. You can get hives right after being around a trigger, or hours later. What are the causes? Allergies to foods. Insect bites or stings. Pollen. Pets. Latex. Chemicals. Spending time in sunlight, heat, or cold. Exercise. Stress. Some medicines. Viruses. This includes the common cold. Infections caused by germs (bacteria). Allergy shots. Blood transfusions. Sometimes, the cause is not known. What increases the risk? Being a woman. Being allergic to foods such as: ?Warren fruits. ?Milk. ?Eggs. ?Peanuts. ?Tree nuts. ?Shellfish. Being allergic to: ?Medicines. ?Latex. ?Insects. ?Animals. ?Pollen. What are the signs or symptoms? Raised, itchy, red or white bumps or patches on your skin. These areas may: ?Get large and swollen. ?Change in shape and location. ?Stand alone or connect to each other over a large area of skin. ?Sting or hurt. ?Turn white when pressed in the center (dylan). In very bad cases, your hands, feet, and face may also get swollen. This may happen if hives start deeper in your skin. How is this treated? Treatment for this condition depends on your symptoms. Treatment may include: Using cool, wet cloths (cool compresses) or taking cool showers to stop the itching. Medicines that help: ?Relieve itching (antihistamines). ?Reduce swelling (corticosteroids). ?Treat infection (antibiotics). A medicine (omalizumab) that is given as a shot (injection). Your doctor may prescribe this if you have hives that do not get better even after other treatments. In very bad cases, you may need a shot of a medicine called epinephrineto prevent a life-threatening allergic reaction (anaphylaxis). Follow these instructions at home: Medicines Take or apply owso-lni-ffjzlzk and prescription medicines only as told by your doctor. If you were prescribed an antibiotic medicine, use it as told by your doctor. Do not stop using it even if you start to feel better. Skin care Apply cool, wet cloths to the hives. Do not scratch your skin. Do not rub your skin. General instructions Do not take hot showers or baths. This can make itching worse. Do not wear tight clothes. Use sunscreen and wear clothes that cover your skin when you are outside. Avoid any triggers that cause your hives. Keep a journal to help track what causes your hives. Write down: ?What medicines you take. ?What you eat and drink. ?What products you use on your skin. Keep all follow-up visits as told by your doctor. This is important. Contact a doctor if: Your symptoms are not better with medicine. Your joints hurt or are swollen. Get help right away if: You have a fever. You have pain in your belly (abdomen). Your tongue or lips are swollen. Your eyelids are swollen. Your chest or throat feels tight. You have trouble breathing or swallowing. These symptoms may be an emergency. Do not wait to see if the symptoms will go away. Get medical help right away. Call your local emergency services (911 in the [place] Do not drive yourself to the hospital. Summary Hives are itchy, red, swollen areas on your skin. Treatment for this condition depends on your symptoms. Avoid things that cause your hives. Keep a journal to help track what causes your hives. Take and apply hvhc-peh-dqvscky and prescription medicines only as told by your doctor. Keep all follow-up visits as told by your doctor. This is important. This information is not intended to replace advice given to you by your health care provider. Make sure you discuss any questions you have with your health care provider. Document Released: 07/12/2009 Document Revised: 04/18/2019 Document Reviewed: 04/18/2019 [employer] Patient Education 2020 [employer]. Follow Up Care 10/17/2022 21:32:51 With:DANIELA MARIE Address: [address] [place] [address] [place] [address] [facility] (1) When:10/20/2022 [facility]12-21-2022 Evaluation + Plan noteExtracted from: Title:ED Note Author:Suleiman Modi PA-C e:10/06/22 Upper respiratory infection (J06.9: Acute upper respiratory infection, unspecified) [facility]12-21-2022 Hospital Discharge instructions Patient Education 10/06/2022 00:03:26 Upper Respiratory Infection, Adult Upper Respiratory Infection, Adult An upper respiratory infection (URI) is a common viral infection of the nose, throat, and upper airpassages that lead to the lungs. The most common type of URI is the common cold. URIs usually get better on their own, without medical treatment. What are the causes? A URI is caused by a virus. You may catch a virus by: Breathing in droplets from an infected person's cough or sneeze. Touching something that has been exposed to the virus (contaminated) and then touching your mouth, nose, or eyes. What increases the risk? You are more likely to get a URI if: You are very young or very old. It is georgina or winter. You have close contact with others, such as at a daycare, school, or health care facility. You smoke. You have long-term (chronic) heart or lung disease. You have a weakened disease-fighting (immune) system. You have nasal allergies or asthma. You are experiencing a lot of stress. You work in an area that has poor air circulation. You have poor nutrition. What are the signs or symptoms? A URI usually involves some of the following symptoms: Runny or stuffy (congested) nose. Sneezing. Cough. Sore throat. Headache. Fatigue. Fever. Loss of appetite. Pain in your forehead, behind your eyes, and over your cheekbones (sinus pain). Muscle aches. Redness or irritation of the eyes. Pressure in the ears or face. How is this diagnosed? This condition may be diagnosed based on your medical history and symptoms, and a physical exam. Your health care provider may use a cotton swab to take a mucus sample from your nose (nasal swab). This sample can be tested to determine what virus is causing the illness. How is this treated? URIs usually get better on their own within 7 10 days. You can take steps at home to relieve your symptoms. Medicines cannot cure URIs, but your health care provider may recommend certain medicines to help relieve symptoms, such as: Btbj-neu-ribdqcz cold medicines. Cough suppressants. Coughing is a type of defense against infection that helps to clear the respiratory system, so take these medicines only as recommended by your health care provider. Fever-reducing medicines. Follow these instructions at home: Activity Rest as needed. If you have a fever, stay home from work or school until your fever is gone or until your health care provider says you are no longer contagious. Your health care provider may have you wear a face mask to prevent your infection from spreading. Relieving symptoms Gargle with a salt-water mixture 3 4 times a day or as needed. To make a salt- water mixture, completely dissolve 1 tsp of salt in 1 cup of warm water. Use a cool-mist humidifier to add moisture to the air. This can help you breathe more easily. Eating and drinking Drink enough fluid to keep your urine pale yellow. Eat soups and other clear broths. General instructions Take mubv-xcz-pbaviqj and prescription medicines only as told by your health care provider. These include cold medicines, fever reducers, and cough suppressants. Do not use any products that contain nicotine or tobacco, such as cigarettes and e-cigarettes. If you need help quitting, ask your health care provider. Stay away from secondhand smoke. Stay up to date on all immunizations, including the yearly (annual) flu vaccine. Keep all follow-up visits as told by your health care provider. This is important. How to prevent the spread of infection to others URIs can be passed from person to person (are contagious). To prevent the infection from spreading: ?Wash your hands often with soap and water. If soap and water are not available, use hand marketing ambassador. ?Avoid touching your mouth, face, eyes, or nose. ?Cough or sneeze into a tissue or your sleeve or elbow instead of into your hand or into the air. Contact a health care provider if: You are getting worse instead of better. You have a fever or chills. Your mucus is brown or red. You have yellow or brown discharge coming from your nose. You have pain in your face, especially when you bend forward. You have swollen neck glands. You have pain while swallowing. You have white areas in the back of your throat. Get help right away if: You have shortness of breath that gets worse. You have severe or persistent: ?Headache. ?Ear pain. ?Sinus pain. ?Chest pain. You have chronic lung disease along with any of the following: ?Wheezing. ?Prolonged cough. ?Coughing up blood. ?A change in your usual mucus. You have a stiff neck. You have changes in your: ?Vision. ?Hearing. ?Thinking. ?Mood. Summary An upper respiratory infection (URI) is a common infection of the nose, throat, and upper air passages that lead to the lungs. A URI is caused by a virus. URIs usually get better on their own within 7 10 days. Medicines cannot cure URIs, but your health care provider may recommend certain medicines to help relieve symptoms. This information is not intended to replace advice given to you by your health care provider. Make sure you discuss any questions you have with your health care provider. Document Released: 03/29/2002 Document Revised: 10/11/2019 Document Reviewed: 05/19/2018 [employer] Patient Education 2020 [employer]. Follow Up Care 10/05/2022 21:54:26 With:DANIELA MARIE Address: [address] [place] [id number] Business (1) When:10/09/2022 [facility]11-03-2022 Evaluation + Plan noteExtracted from: Title:ED Note Author:Jhonatan Lockhart DO Date :08/19/22 Rash (R21: Rash and other no nspecific skin eruption) Orders: triamcinolone topical, 1 tyler, Topical, TID, 15 gram, Refill(s) 0, [id number], 165, cm, 08/19/22 0:59:00 EDT, Height/Length Dosing, 98, kg, 08/19/22 0:59:00 EDT, Weight Dosing [facility]11-03-2022 Hospital Discharge instructions Patient Education 08/19/2022 01:23:28 Rash, Adult Rash, Adult A rash is a change in the color of your skin. A rash can also change the way your skin feels. Thereare many different conditions and factors that can cause a rash. Some rashes may disappear after a few days, but some may last for a few weeks. Common causes of rashes include: Viral infections, such as: ?Colds. ?Measles. ?Hand, foot, and mouth disease. Bacterial infections, such as: ?Scarlet fever. ?Impetigo. Fungal infections, such as [place]line. Allergic reactions to food, medicines, or skin care products. Follow these instructions at home: The goal of treatment is to stop the itching and keep the rash from spreading. Pay attention to anychanges in your symptoms. Follow these instructions to help with your condition: Medicine Take or apply choz-xqt-bexddja and prescription medicines only as told by your health care provider. These may include: Corticosteroid creams to treat red or swollen skin. Anti-itch lotions. Oral allergy medicines (antihistamines). Oral corticosteroids for severe symptoms. Skin care Apply cool compresses to the affected areas. Do not scratch or rub your skin. Avoid covering the rash. Make sure the rash is exposed to air as much as possible. Managing itching and discomfort Avoid hot showers or baths, which can make itching worse. A cold shower may help. Try taking a bath with: ?Epsom salts. Follow senior service aide instructions on the packaging. You can get these at your local pharmacy or grocery store. ?Baking soda. Pour a small amount into the bath as told by your health care provider. ?Colloidal oatmeal. Follow senior service aide instructions on the packaging. You can get this at your local pharmacy or grocery store. Try applying baking soda paste to your skin. Stir water into baking soda until it reaches a paste-like consistency. Try applying calamine lotion. This is an izsw-qkg-ntupmhb lotion that helps to relieve itchiness. Keep cool and out of the sun. Sweating and being hot can make itching worse. General instructions Rest as needed. Drink enough fluid to keep your urine pale yellow. Wear loose-fitting clothing. Avoid scented soaps, detergents, and perfumes. Use gentle soaps, detergents, perfumes, and other cosmetic products. Avoid any substance that causes your rash. Keep a journal to help track what causes your rash. Write down: ?What you eat. ?What cosmetic products you use. ?What you drink. ?What you wear. This includes jewelry. Keep all follow-up visits as told by your health care provider. This is important. Contact a health care provider if: You sweat at night. You lose weight. You urinate more than normal. You urinate less than normal, or you notice that your urine is a darker color than usual. You feel weak. You vomit. Your skin or the whites of your eyes look yellow (jaundice). Your skin: ?Tingles. ?Is numb. Your rash: ?Does not go away after several days. ?Gets worse. You are: ?Unusually thirsty. ?More tired than normal. You have: ?New symptoms. ?Pain in your abdomen. ?A fever. ?Diarrhea. Get help right away if you: Have a fever and your symptoms suddenly get worse. Develop confusion. Have a severe headache or a stiff neck. Have severe joint pains or stiffness. Have a seizure. Develop a rash that covers all or most of your body. The rash may or may not be painful. Develop blisters that: ?Are on top of the rash. ?Grow larger or grow together. ?Are painful. ?Are inside your nose or mouth. Develop a rash that: ?Looks like purple pinprick-sized spots all over your body. ?Has a bull's eye or looks like a target. ?Is not related to sun exposure, is red and painful, and causes your skin to peel. Summary A rash is a change in the color of your skin. Some rashes disappear after a few days, but some may last for a few weeks. The goal of treatment is to stop the itching and keep the rash from spreading. Take or apply udif-fxj-qgghlpd and prescription medicines only as told by your health care provider. Contact a health care provider if you have new or worsening symptoms. Keep all follow-up visits as told by your health care provider. This is important. This information is not intended to replace advice given to you by your health care provider. Make sure you discuss any questions you have with your health care provider. Document Released: 09/23/2003 Document Revised: 01/25/2020 Document Reviewed: 05/07/2019 [employer] Patient Education 2020 [employer]. Follow Up Care 08/19/2022 00:52:17 With:DANIELA MARIE Address: [address] [place] [address] [place] [address]- Business (1) When:08/26/2022 only if needed [facility]06-20-2022 Evaluation + Plan noteExtracted from: Title:ED Note Author:Jhonatan Lockhart DO Date :04/05/22 N&V (nausea and vomiting) (R 11.2: Nausea with vomiting, unspecified) Orders: ondansetron, 4 mg = 1 tab(s), Oral, q8hr, PRN Nausea/Vomiting, # 20 tab(s), Refills(s) 0, Pharmacy: [id number], 170.2, cm, 04/04/22 22:40:00 EDT, Height/Length Dosing, 96, kg, 04/04/22 22:40:00 EDT, Weight Dosing Influenza A&B Ag Rapid COVID Antigen ([place]) [facility]06-20-2022 Hospital Discharge instructions Patient Education 04/05/2022 02:09:28 Nausea and Vomiting, Adult Nausea and Vomiting, Adult Nausea is the feeling that you have an upset stomach or that you are about to vomit. Vomiting is when stomach contents are thrown up and out of the mouth as a result of nausea. Vomiting can make you feel weak and cause you to become dehydrated. Dehydration can make you feel tired and thirsty, cause you to have a dry mouth, and decrease how often you urinate. Older adults and people with other diseases or a weak disease-fighting system (immune system) are at higher risk for dehydration. It is important to treat your nausea and vomiting as told by your health care provider. Follow these instructions at home: Watch your symptoms for any changes. Tell your health care provider about them. Follow these instructions to care for yourself at home. Eating and drinking Take an oral rehydration solution (ORS). This is a drink that is sold at pharmacies and retail stores. Drink clear fluids slowly and in small amounts as you are able. Clear fluids include water, ice chips, low-calorie sports drinks, and fruit juice that has water added (diluted fruit juice). Eat bland, rwpt-ja-wzhdly foods in small amounts as you are able. These foods include bananas, applesauce, rice, lean meats, toast, and crackers. Avoid fluids that contain a lot of sugar or caffeine, such as energy drinks, sports drinks, and soda. Avoid alcohol. Avoid spicy or fatty foods. General instructions Take docv-ron-lnqtvzq and prescription medicines only as told by your health care provider. Drink enough fluid to keep your urine pale yellow. Wash your hands often using soap and water. If soap and water are not available, use hand marketing ambassador. Make sure that all people in your household wash their hands well and often. Rest at home while you recover. Watch your condition for any changes. Breathe slowly and deeply when you feel nauseated. Keep all follow-up visits as told by your health care provider. This is important. Contact a health care provider if: Your symptoms get worse. You have new symptoms. You have a fever. You cannot drink fluids without vomiting. Your nausea does not go away after 2 days. You feel light-headed or dizzy. You have a headache. You have muscle cramps. You have a rash. You have pain while urinating. Get help right away if: You have pain in your chest, neck, arm, or jaw. You feel extremely weak or you faint. You have persistent vomiting. You have vomit that is bright red or looks like black coffee grounds. You have bloody or black stools or stools that look like tar. You have a severe headache, a stiff neck, or both. You have severe pain, cramping, or bloating in your abdomen. You have difficulty breathing, or you are breathing very quickly. Your heart is beating very quickly. Your skin feels cold and clammy. You feel confused. You have signs of dehydration, such as: ?Dark urine, very little urine, or no urine. ?Cracked lips. ?Dry mouth. ?Sunken eyes. ?Sleepiness. ?Weakness. These symptoms may represent a serious problem that is an emergency. Do not wait to see if the symptoms will go away. Get medical help right away. Call your local emergency services (911 in the [place] Do not drive yourself to the hospital. Summary Nausea is the feeling that you have an upset stomach or that you are about to vomit. As nausea getsworse, it can lead to vomiting. Vomiting can make you feel weak and cause you to become dehydrated. Follow instructions from your health care provider about eating and drinking to prevent dehydration. Take hhes-vmt-qidiwps and prescription medicines only as told by your health care provider. Contact your health care provider if your symptoms get worse, or you have new symptoms. Keep all follow-up visits as told by your health care provider. This is important. This information is not intended to replace advice given to you by your health care provider. Make sure you discuss any questions you have with your health care provider. Document Released: 10/03/2006 Document Revised: 01/25/2020 Document Reviewed: 03/13/2019 [employer] Patient Education 2020 [employer]. Follow Up Care 04/04/2022 22:16:31 With:DANIELA MARIE Address: [address] [place] [id number]- [facility] (1) When:Within 3 Day(s) [facility]05-23-2022 Evaluation + Plan noteExtracted from: Title:ED Note Author:Kian Rodriguez DO Date: Strain of foot (S96.919A: St rain of unspecified muscle and tendon at ankle and foot level, unspecified foot, initial encounter) Orders: XR Foot 3+ Views Left [facility]05-23-2022 Hospital Discharge instructions Patient Education 03/08/2022 02:10:58 RICE Therapy for Routine Care of Injuries RICE Therapy for Routine Care of Injuries The routine care of many injuries includes rest, ice, compression, and elevation (RICE therapy). RICE therapy is often recommended for injuries to soft tissues, such as muscle strain, sprains, bruises, and overuse injuries. It can also be used for some bone injuries. Using RICE therapy can help to relieve pain and lessen swelling. Supplies needed: Ice. Plastic bag. Towel. Elastic bandage. Pillow or pillows to raise (elevate) the injured body part. How to care for your injury with RICE therapy Rest Rest your injury. This may help with the healing process. Rest usually involves limiting your normal activities and not using the injured part of your body. Generally, you can return to your normal activities when your health care provider says it is okay and you can do them without much discomfort. If you rest the injury too much, it may not heal as well. Some injuries heal better with early movement instead of resting for too long. Talk with your health care provider about how you should limityour activities and whether you should start smacn-zg-ioaxbh exercises for your injury. Ice Ice your injury to lessen swelling and pain. Do not apply ice directly to your skin. Put ice in a plastic bag. Place a towel between your skin and the bag. Leave the ice on for 20 minutes, 2 3 times a day. Use ice on as many days as told by your health care provider. Compression Put pressure (compression) on your injured area to control swelling, give support, and help with discomfort. Compression may be done with an elastic bandage. If an elastic bandage has been applied, follow these general tips: Use the bandage as directed by the maker of the bandage that you are using. Do not wrap the bandage too tightly. That may block (cut off) circulation in the arm or leg in the area below the bandage. ?If part of your body beyond the bandage becomes blue, numb, cold, swollen, or more painful, your bandage is probably too tight. If this occurs, remove your bandage and reapply it more loosely. Remove and reapply the bandage every 3 4 hours or as told by your health care provider. See your health care provider if the bandage seems to be making your problems worse rather than better. Elevation Elevate your injured area to lessen swelling and pain. If possible, elevate your injured area at orabove the level of your heart or the center of your chest. Contact a health care provider if: Your pain and swelling continue. Your symptoms are getting worse rather than improving. Having these problems may mean that you need further evaluation or imaging tests, such as X-rays bryan MRI. Sometimes, X-rays may not show a small broken bone (fracture) until days after the injury happened. Make a follow-up appointment with your health care provider. Ask your health care provider,or the department that is doing the imaging test, when your results will be ready. Get help right away if: You have sudden severe pain at or below the area of your injury. You have redness or increased swelling around your injury. You have tingling or numbness at or below the area of your injury and it does not improve after youremove the elastic bandage. Summary The routine care of many injuries includes rest, ice, compression, and elevation (RICE therapy). Using RICE therapy can help to relieve pain and lessen swelling. RICE therapy is often recommended for injuries to soft tissues, such as muscle strain, sprains, bruises, and overuse injuries. It can also be used for some bone injuries. Seek medical care if your pain and swelling continue or if your symptoms are getting worse rather than improving. This information is not intended to replace advice given to you by your health care provider. Make sure you discuss any questions you have with your health care provider. Document Released: 01/15/2002 Document Revised: 06/23/2018 Document Reviewed: 06/23/2018 [employer] Patient Education 2020 [employer] 03/08/2022 02:10:58 Foot Sprain Foot Sprain A foot sprain is an injury to one of the strong bands of tissue (ligaments) that connect and support the bones in your feet. The ligament can be stretched too much and tear. A tear can be either partial or complete. The severity of the sprain depends on how much of the ligament was damaged or torn. What are the causes? This condition is usually caused by suddenly twisting or pivoting your foot. What increases the risk? This injury is more likely to occur in people who: Play a sport, such as basketball or football. Exercise or play a sport without warming up. Start a new workout or sport. Suddenly increase how long or hard they exercise or play a sport. Have previously injured their foot or ankle. What are the signs or symptoms? Symptoms of this condition start soon after an injury and include: Pain, especially in the arch of the foot. Bruising. Swelling. Inability to walk or use the foot to support body weight. How is this diagnosed? This condition is diagnosed with a medical history and physical exam. You may also have imaging tests, such as: X-rays to make sure there are no broken bones (fractures). An MRI to see if the ligament is torn. How is this treated? Treatment for this condition depends on the severity of the sprain. Mild sprains can be treated with: ?Rest, ice, compression, and elevation (RICE). ?Keeping your foot in a fixed position (immobilization) for a period of time. This is done if your ligament is overstretched or partially torn. Your health care provider will apply a bandage, splint,or walking boot to keep your foot from moving until it heals. ?Using crutches or a scooter for a few weeks to avoid putting weight on your foot while it is healing. Major sprains can be treated with: ?Surgery. This is done if your ligament is fully torn and a procedure is needed to reconnect it to the bone. ?A cast or splint. This will be needed after surgery. A cast or splint will need to stay on your foot while it heals. In both types of sprains, you may need to exercise or have physical therapy to strengthen your foot. Follow these instructions at home: If you have a bandage, splint, or boot: Wear the bandage, splint, or boot as told by your health care provider. Remove only as told by yourhealth care provider. Loosen the bandage, splint, or boot if your toes tingle, become numb, or turn cold and blue. Keep the bandage, splint, or boot clean and dry. If you have a cast: Do not stick anything inside the cast to scratch your skin. Doing that increases your risk for infection. Check the skin around the cast every day. Tell your health care provider about any concerns. You may put lotion on dry skin around the edges of the cast. Do not put lotion on the skin underneath the cast. Keep the cast clean and dry. Bathing Do not take baths, swim, or use a hot tub until your health care provider approves. Ask your healthcare provider if you may take showers. You may only be allowed to take sponge baths. If the bandage, splint, boot, or cast is not waterproof: ?Do not let it get wet. ?Cover it with a watertight covering when you take a shower. Managing pain, stiffness, and swelling If directed, put ice on the injured area: ?If you have a removable splint, boot, or immobilizer, remove it as told by your health care provider. ?Put ice in a plastic bag. ?Place a towel between your skin and the bag. ?Leave the ice on for 20 minutes, 2 3 times per day. Move your toes often to avoid stiffness and to lessen swelling. Raise (elevate) the injured area above the level of your heart while you are sitting or lying down. Driving Do not drive or operate heavy machinery while taking pain medicine. Ask your health care provider when it is safe to drive if you have a bandage, splint, or walking boot on your foot. Activity Do not use the injured foot to support your body weight until your health care provider says that you can. Use crutches or other supportive devices as directed by your health care provider. Ask your health care provider what activities are safe for you. Do any exercise or physical therapyas directed. Gradually increase how much and how far you walk until your health care provider says it is safe toreturn to full activity. General instructions If you have a cast, do not put pressure on any part of it until it is fully hardened. This may takeseveral hours. Take wwmh-irs-takmbkv and prescription medicines only as told by your health care provider. When you can walk without pain, wear supportive shoes that have stiff soles. Do not wear flip-flops, and do not walk barefoot. Keep all follow-up visits as told by your health care provider. This is important. Contact a health care provider if: Your pain is not controlled with medicine. Your bruising or swelling gets worse or does not get better with treatment. Your splint, boot, or cast is damaged. Get help right away if: You develop severe numbness or tingling in your foot. Your foot turns blue, white, or hanson, and it feels cold. Summary A foot sprain is an injury to one of the strong bands of tissue (ligaments) that connect and support the bones in your feet. Your health care provider may recommend a splint or boot for your foot to support it while it heals. In some cases, surgery may be needed. Physical therapy can help keep your other muscles strong until your foot gets better. This information is not intended to replace advice given to you by your health care provider. Make sure you discuss any questions you have with your health care provider. Document Released: 03/25/2003 Document Revised: 10/07/2018 Document Reviewed: 10/07/2018 [employer] Patient Education 2020 [employer]. Follow Up Care 03/08/2022 01:13:48 With:DANIELA MARIE Address: [address] [place] [address] [facility] (1) When:03/11/2022 Comments:Call the office of your primary care doctor to arrange for follow-up within the above-stated timeframe. Follow-up with your primary care doctor about this ED visit. You should review your labs, imaging, and diagnoses from this ED visit with your primary care physician. If you were prescribed medications you should discuss possible side-effects and drug interactions with your pharmacist. Call 911 or go to the nearest Emergency Department if you develop any new or worsening symptoms. [facility]04-23-2022 Hospital Discharge instructions Patient Education 02/05/2022 22:10:15 Eustachian Tube Dysfunction Eustachian Tube Dysfunction You can use Zyrtec-D and Flonase bxzw-hqb-yseosgo Eustachian tube dysfunction refers to a condition in which a blockage develops in the narrow passage that connects the middle ear to the back of the nose (eustachian tube). The eustachian tube regulates air pressure in the middle ear by letting air move between the ear and nose. It also helps to drain fluid from the middle ear space. Eustachian tube dysfunction can affect one or both ears. When the eustachian tube does not functionproperly, air pressure, fluid, or both can build up in the middle ear. What are the causes? This condition occurs when the eustachian tube becomes blocked or cannot open normally. Common causes of this condition include: Ear infections. Colds and other infections that affect the nose, mouth, and throat (upper respiratory tract). Allergies. Irritation from cigarette smoke. Irritation from stomach acid coming up into the esophagus (gastroesophageal reflux). The esophagus is the tube that carries food from the mouth to the stomach. Sudden changes in air pressure, such as from descending in an airplane or scuba diving. Abnormal growths in the nose or throat, such as: ?Growths that line the nose (nasal polyps). ?Abnormal growth of cells (tumors). ?Enlarged tissue at the back of the throat (adenoids). What increases the risk? You are more likely to develop this condition if: You smoke. You are overweight. You are a child who has: ?Certain defects of the mouth, such as cleft palate. ?Large tonsils or adenoids. What are the signs or symptoms? Common symptoms of this condition include: A feeling of fullness in the ear. Ear pain. Clicking or popping noises in the ear. Ringing in the ear. Hearing loss. Loss of balance. Dizziness. Symptoms may get worse when the air pressure around you changes, such as when you travel to an areaof high elevation, fly on an airplane, or go scuba diving. How is this diagnosed? This condition may be diagnosed based on: Your symptoms. A physical exam of your ears, nose, and throat. Tests, such as those that measure: ?The movement of your eardrum (tympanogram). ?Your hearing (audiometry). How is this treated? Treatment depends on the cause and severity of your condition. In mild cases, you may relieve your symptoms by moving air into your ears. This is called popping the ears. In more severe cases, or if you have symptoms of fluid in your ears, treatment may include: ?Medicines to relieve congestion (decongestants). ?Medicines that treat allergies (antihistamines). ?Nasal sprays or ear drops that contain medicines that reduce swelling (steroids). ?A procedure to drain the fluid in your eardrum (myringotomy). In this procedure, a small tube is placed in the eardrum to: ?Drain the fluid. ?Restore the air in the middle ear space. ?A procedure to insert a balloon device through the nose to inflate the opening of the eustachian tube (balloon dilation). Follow these instructions at home: Lifestyle Do not do any of the following until your health care provider approves: ?Travel to high altitudes. ?Fly in airplanes. ?Work in a pressurized cabin or room. ?Scuba dive. Do not use any products that contain nicotine or tobacco, such as cigarettes and e-cigarettes. If you need help quitting, ask your health care provider. Keep your ears dry. Wear fitted earplugs during showering and bathing. Dry your ears completely after. General instructions Take [id number] and prescription medicines only as told by your health care provider. Use techniques to help pop your ears as recommended by your health care provider. These may include: ?Chewing gum. ?Yawning. ?Frequent, forceful swallowing. ?Closing your mouth, holding your nose closed, and gently blowing as if you are trying to blow air out of your nose. Keep all follow-up visits as told by your health care provider. This is important. Contact a health care provider if: Your symptoms do not go away after treatment. Your symptoms come back after treatment. You are unable to pop your ears. You have: ?A fever. ?Pain in your ear. ?Pain in your head or neck. ?Fluid draining from your ear. Your hearing suddenly changes. You become very dizzy. You lose your balance. Summary Eustachian tube dysfunction refers to a condition in which a blockage develops in the eustachian tube. It can be caused by ear infections, allergies, inhaled irritants, or abnormal growths in the nose or throat. Symptoms include ear pain, hearing loss, or ringing in the ears. Mild cases are treated with maneuvers to unblock the ears, such as yawning or ear popping. Severe cases are treated with medicines. Surgery may also be done (rare). This information is not intended to replace advice given to you by your health care provider. Make sure you discuss any questions you have with your health care provider. Document Released: 10/29/2016 Document Revised: 01/23/2019 Document Reviewed: 01/23/2019 [employer] Patient Education 2020 [employer] Follow Up Care 02/05/2022 20:16:39 With:DANIELA MARIE MD Address: [address] [place] [id number] When:02/08/2022 [facility]04-22-2022 Evaluation + Plan noteExtracted from: Title:ED Note Author:Ina SON Radha ParminderJennifer Date :02/05/22 1. Acute serous otitis media , left ear (H65.02: Acute serous otitis media, left ear) [facility] course Narrative No data available for this section [facility] Discharge instructions No data available for this section [facility] data available for this section [facility] Summary Purpose Family History No Family History Records FoundNo Family History Records FoundNo Family History Records Found Advance Directives No Advanced Directives Records FoundNo Advanced Directives Records FoundNo Advanced Directives Records Found Additional Source Comments Care Team (unrecognized sect ion and content) Operations Team Leader Relationship Specialty Start Date End Date Daniela Marie MD [address] [facility] [address] [place] [address] PCP - General Family Medicine 02/22/23 Keerthi Blanco MD [address] [place] [address] Referring Physician 11/11/23 INFORMATION SOURCE (unrecogn ized section and content) DATE CREATED AUTHOR 02/03/2023 [facility] DATE CREATED AUTHOR AUTHOR'S ORGANIZ ATION 02/11/2023 [facility] DATE CREATED AUTHOR AUTHOR'S ORGANIZ ATION 06/06/2024 [facility] FOR RECORDS PERTAINING TO PATIENTS WHO ARE OR HAVE BEEN ENROLLED IN A CHEMICAL DEPENDENCY/SUBSTANCEABUSE PROGRAM, SOME INFORMATION MAY BE OMITTED. This clinical summary was aggregated from multiple sources. Caution should be exercised in using it in the provision of clinical care. This summary normalizes information from multiple sources, and as a consequence, information in this document may materially change the coding, format and clinical context of patient data. In addition, data may be omitted in some cases. CLINICAL DECISIONS SHOULD BE BASED ON THE PRIMARY CLINICAL RECORDS. [facility] [employer] [facility]. provides no warranty or guarantee of the accuracy or completeness of information in this document.
[2024-06-23 20:46] VITALS: O2SAT 98
--- NOTE | 2024-06-23 20:54 | ED_ITS ---
HPI - Medical Clearance General Chief complaint: Medical Clearance Stated complaint: TOO MANY TYLENOL Time Seen by Provider: 06/23/24 20:52 Source: patient Mode of arrival: walk-in Limitations: no limitations History of Present Illness HPI Narrative: patient states she had a headache and took # 4 500mg tylenol. Now concerned she may have overdosed because she feels tired. Also complaining of urinary frequency and concerned about UTI. No fever, nausea or abdominal pain Related Information Home Medications ?Medication ?Instructions ?Recorded ?Confirmed alprazolam 0.25 mg tablet 0.25 mg PO DAILY PRN anxiety 01/30/24 06/19/24 lurasidone 40 mg tablet 40 mg PO DAILY 01/30/24 06/19/24 albuterol sulfate 90 mcg/actuation 2 inh inhalation Q4H PRN shortness 06/19/24 06/19/24 aerosol inhaler of breath or wheezing phentermine 37.5 mg tablet 37.5 mg PO DAILY 06/19/24 06/19/24 Allergies Allergy/AdvReac Type Severity Reaction Status Date / Time No Known Drug Allergies Allergy Verified 06/23/24 20:31 Review of Systems ROS Status of ROS 10 or more systems reviewed and unremark able except as noted in history and below [facility] Medical History (Updated 06/23/24 @ 21:13 by Milton Souza MD) Anemia ?D64.9 - Anemia, unspecified (ICD-10) COVID-19 ?U07.1 - COVID-19 (ICD-10) ADHD ?F90.9 - Attention-deficit hyperactivity disorder, unspecified type (ICD-10) Oppositional defiant behavior ?R46.89 - Other symptoms and signs involving appearance and behavior (ICD-10) Borderline personality disorder ?F60.3 - Borderline personality disorder (ICD-10) Asthma ?J45.909 - Unspecified asthma, uncomplicated (ICD-10) Migraine ?G43.909 - Migraine, unspecified, not intractable, without status migrainosus (ICD-10) High cholesterol ?E78.00 - Pure hypercholesterolemia, unspecified (ICD-10) Bipolar disorder ?F31.9 - Bipolar disorder, unspecified (ICD-10) Diarrhea ?R19.7 - Diarrhea, unspecified (ICD-10) Heartburn ?R12 - Heartburn (ICD-10) Request for sterilization ?Z30.2 - Encounter for sterilization (ICD-10) Surgical History (Updated 01/30/24 @ 11:18 by Mali Cano NP) History of bladder surgery ?Z98.890 - Other specified postprocedural states (ICD-10) History of tonsillectomy and adenoidectomy ?Z90.89 - Acquired absence of other organs (ICD-10) Family History (Updated 01/30/24 @ 11:18 by Mali Cano NP) Other Family history of hypertension Social History (Updated 01/30/24 @ 11:13 by Mali Cano NP) Within the past year, how often did you have a drink containing alcohol: never Score interpretation: A score less than 3 is consistent with normal alcohol consumption. Smoking status: Never smoker Non-prescribed substance use: denies use Highest level of school completed/degree received: high school graduate Little interest or pleasure in doing things: not at all Feeling down, depressed, or hopeless: not at all Exam Constitutional Vital Signs, click to edit/add: Last Vital Signs Temp 98.2 F 06/23/24 20:26 Pulse 85 06/23/24 20:26 Resp 22 H 06/23/24 20:26 BP 125/79 06/23/24 20:26 Pulse Ox 98 06/23/24 20:46 O2 Del Method Room Air 06/23/24 20:46 Common normals: no apparent distress, average body habitus, oriented x3, no limitations, healthy appearing, alert and well nourished [facility] Common normals: normocephalic and head/scalp atraumatic Respiratory Common normals: normal respiratory effort, no retractions, no use of accessory muscles and clear to auscultation bilaterally Cardio Common normals: regular rate, regular rhythm, S1 normal heart sound and S2 normal heart sound GI Common normals: Normal to inspection, nondistended, normoactive bowel sounds present, soft to palpation and non-tender Back & Pelvis Common normals: no CVA tenderness Extremity Common normals: normal to inspection and full ROM Neuro Common normals: oriented x3, CN's II-XII intact bilaterally, moves all extremities and no focal motor deficits Psych Appearance: grossly normal Course Vital Signs Vital signs: Vital Signs Temperature 98.2 F 06/23/24 20:26 Pulse Rate 85 06/23/24 20:26 Respiratory Rate 22 H 06/23/24 20:26 Blood Pressure 125/79 06/23/24 20:26 Pulse Oximetry 99 06/23/24 20:26 Oxygen Delivery Method Room Air 06/23/24 20:26 Temperature 98.2 F 06/23/24 20:26 Pulse Rate 85 06/23/24 20:26 Respiratory Rate 22 H 06/23/24 20:26 Blood Pressure 125/79 06/23/24 20:26 Pulse Oximetry 98 06/23/24 20:46 Oxygen Delivery Method Room Air 06/23/24 20:46 MDM - Medical Clearance MDM Narrative Medical decision making narrative: patient states she took # 4 tylenols for her headache. LÓPEZ is better. history of headache. She was concerned she overdoed by taking 2000mg of tylenol. also concerned about possible UTI. Patient reassured one time dose of tylenol 2000mg should not harm her. UA without findings of UTI. Discharged home in stable condition Lab Data Labs: Lab Results 06/23/24 Range/Units 20:35 Urine Color Yellow (YELLOW) Urine Clarity Clear (CLEAR) Urine pH 5.5 (5.0-9.0) Ur Specific [place] >=1.030 A (1.005-1.025) Urine Protein Negative (NEG/TRACE) mg/dL Urine Glucose (UA) Negative (NEGATIVE) mg/dL Urine Ketones Trace A (NEGATIVE) mg/dL Urine Occult Blood Negative (NEGATIVE) Urine Nitrite Negative (NEGATIVE) Urine Bilirubin Negative (NEGATIVE) Urine Urobilinogen 0.2 (0.2-1.0) EU/dL Ur Leukocyte Esterase Trace A (NEGATIVE) Urine RBC 2-5 A (0-2) #/HPF Urine WBC 2-5 A (NONE SEEN) #/HPF Ur Squamous Epith Cells Many A (NONE/RARE) #/LPF Urine Crystals None seen (None Seen) #/HPF Urine Bacteria Trace A (NONE SEEN) #/HPF Urine Casts None seen (NONE SEEN) #/LPF Urine Mucus Moderate A (NONE SEEN) Ur Culture Indicated? No Discharge Plan Discharge Chief Complaint: Medical Clearance Clinical Impression: Headache Patient Disposition: Home, Self-Care Prescriptions / Home Meds: No Action albuterol sulfate 90 mcg/actuation HFA aerosol inhaler 2 inh INHALATION Q4H PRN (Reason: shortness of breath or wheezing) phentermine 37.5 mg tablet 37.5 mg PO DAILY lurasidone 40 mg tablet 40 mg PO DAILY alprazolam 0.25 mg tablet 0.25 mg PO DAILY PRN (Reason: anxiety) Print Language: New Zealander Instructions: Acute Headache (ED) Referrals: Physician,Non-Staff, MD [Primary Care Provider] - 1 week
[2024-06-23 20:55] LABS: Bilirubin Urine NEGATIVE (NEGATIVE); Blood Urine NEGATIVE (NEGATIVE); Clarity Urine CLEAR (CLEAR); Color Urine YELLOW (YELLOW); Glucose Urine UA NEGATIVE (NEGATIVE); Ketones Urine TRACE mg/dL (NEGATIVE); Leukocyte Esterase Urine TRACE (NEGATIVE); Nitrite Urine NEGATIVE (NEGATIVE); Protein Urine NEGATIVE (NEG/TRACE); Specific Gravity Urine >=1.030 (1.005-1.025); Urobilinogen Urine 0.2 EU/dL (0.2-1.0); pH Urine 5.5 (5.0-9.0)
[2024-06-23 20:56] LABS: Urine Microscopic Indicated YES
[2024-06-23 21:01] LABS: Bacteria Urine TRACE #/HPF (NONE SEEN); Cast Seen? NONE SEEN #/LPF (NONE SEEN); Crystals Seen? None Seen #/HPF (None Seen); Mucus Urine MODERATE (NONE SEEN); Squamous Epithelial Cell Urine MANY #/LPF (NONE/RARE); Urine Culture Indicated NO
== END 2024-06-23 21:29 | disposition home or self-care (01) ==
PROVIDERS: Emergency Provider Internal Medicine
DX: R51.9 Headache, unspecified (principal); R35.0 Frequency of micturition
CPT/HCPCS: 81001; 99283